=== PATIENT | male | born 1965 | race Caucasian/White ===

== ENCOUNTER 2018-01-07 08:27 | Outpatient (CLI) | payer OTHER ==
[2018-01-07 09:11] LABS: Estimated GFR-MDRD - POC Greater than 90
--- NOTE | 2018-01-07 13:29 | MRI ---
MRI ABDOMEN WITH AND WITHOUT IV CONTRAST: Date: 01/07/18 HISTORY: Cirrhosis. Encounter for colorectal cancer screening. Portal hypertension with esophageal varices. FINDINGS: Exam limited due to motion artifact. The liver has an irregular surface consistent with cirrhosis. There is heterogeneity in the liver due to degenerative nodules. No enhancing hepatic mass is seen. There is recanalization of the portal ve ins. No hepatic mass is seen. The spleen is enlarged measuring 19.3 cm. The liver, pancreas, and adre nal glands are normal. The gallbladder is distended. No definite gallstones are seen. No ascites is s een. There is no evidence of aneurysmal dilatation of the abdominal aorta. Paraesophageal varices are present. Multiple tiny low intensity lesions are seen in the spleen consistent with siderotic nodule s ([place] bodies). IMPRESSION: 1. Cirrhosis of the liver. 2. Splenomegaly. 3. Portal hypertension. 4. No evidence of hepatic mass. Follow-up exam is recommended in 12 months. POS: [facility]
== END 2018-01-07 08:28 | disposition home or self-care (01) ==
LOC: TBSIIMAG 08:27
PROVIDERS: ATTEND Internal Medicine Gastroenterology
DX: Z12.11 Encounter for screening for malignant neoplasm of colon (principal); K74.60 Unspecified cirrhosis of liver; K76.6 Portal hypertension; I85.10 Secondary esophageal varices without bleeding; R16.1 Splenomegaly, not elsewhere classified
CPT/HCPCS: 74183; 82565

== ENCOUNTER 2018-02-19 06:15 | Day surgery (SDC) | payer OTHER ==
[2018-02-18 12:02] VITALS: BMI 49.4
[2018-02-19] MEDS ORDERED: Ethanolamine Oleate 5% 2 ml Ampule ONE (08:53)
--- NOTE | 2018-02-19 10:53 | OP ---
DATE OF PROCEDURE: 02/19/2018 PROCEDURE: Esophagogastroduodenoscopy with banding of esophageal varices and screening colonoscopy. PREOPERATIVE DIAGNOSIS: Esophageal varices and colon cancer screening. OPERATIVE NOTE: Informed consent was obtained from the patient. He was sedated with total intraveno us anesthesia. The bite block was placed and the endoscope was advanced easily to the second portion of the duodenum and retroflexion was performed in the stomach. The esophagus had a very large grade 4 esophageal varix, which filled the lumen of the esophagus in the distal esophagus. This varix was banded x2. Banding flattened the varix out completely. The GE junction was, otherwise, normal. Th e stomach had erosive gastritis in the antrum. Retroflexed views were normal. There were no gastric varices present. The pylorus and first and second portions of the duodenum were normal. The patien t was turned around. Rectal exam was performed and was normal. The colonoscope was advanced to the cecum where the ileocecal valve and appendiceal orifice were clearly identified. The preparation valentin lity was good. The colonic mucosa was normal throughout. Retroflexed views in the rectum were selvin l. IMPRESSION: 1. Large grade 4 esophageal varix, banded x2. 2. Erosive antral gastritis. 3. Otherwise normal esophagogastroduodenoscopy. No gastric varices were present. 4. Normal screening colonoscopy. RECOMMENDATIONS: 1. Repeat EGD in 3 weeks for completion banding. 2. Repeat colonoscopy in 10 years. 3. Check H. pylori antibody.
== END 2018-02-19 10:15 | disposition home or self-care (01) ==
LOC: SDC 06:15
PROVIDERS: ATTEND Internal Medicine Gastroenterology
PROC: 0DJD8ZZ Inspection of Lower Intestinal Tract, Via Natural or Artificial Opening Endoscopic (ICD-10-PCS; principal; 2018-02-19)
PROC: 06L38CZ Occlusion of Esophageal Vein with Extraluminal Device, Via Natural or Artificial Opening Endoscopic (ICD-10-PCS; principal; 2018-02-19)
DX: K62.5 Hemorrhage of anus and rectum (principal); K74.60 Unspecified cirrhosis of liver; K76.6 Portal hypertension; I85.10 Secondary esophageal varices without bleeding; K29.60 Other gastritis without bleeding; I10 Essential (primary) hypertension; E78.00 Pure hypercholesterolemia, unspecified; Z79.84 Long term (current) use of oral hypoglycemic drugs; Z79.82 Long term (current) use of aspirin; Z79.899 Other long term (current) drug therapy
CPT/HCPCS: 36415; 36416; 86677; J1430

== ENCOUNTER 2018-02-28 23:55 | Inpatient (IN) | payer OTHER ==
[2018-03-01] MEDS ORDERED: Ondansetron HCl/PF 4 MG/2 ML Vial ONE ×2 (00:17→00:54)
[2018-03-01] MEDS ORDERED: Pantoprazole 40 MG VIAL ONE (00:58)
[2018-03-01 01:11] LABS: #Basophils 0.1 thou/uL (0.0-0.2); #Eosinphils 0.1 thou/uL (0.0-0.7); #Monocytes 0.5 thou/uL (0.11-0.59); #Neutrophils 4.9 thou/uL (1.40-6.50); %Basophils 0.7 % (0.0-1.0); %Eosinophils 0.8 % (0.0-10.0); %Lymphocytes 26.2 % (21.0-51.0); %Monocytes 6.6 % (0.0-10.0); %Neutrophils 65.7 % (42.0-75.0); Hemoglobin 11.8 g/dL (14.0-18.0); Mean Corpuscular HGB CONC 33.6 g/dL (32.0-36.0); Mean Corpuscular Hemoglobin 34.5 pg (27.0-31.0); Mean Platelet Volume 11.1 fL (7.4-10.4); Platelet Count 80 thou/uL (130-400); Red Blood Cell (RBC) Count 3.42 mill/uL (4.70-6.10); White Blood Cell (WBC) Count 7.4 thou/uL (4.8-10.8)
[2018-03-01 01:15] LABS: INR-International Normal Ratio 1.3; PTT 27.5 SEC (22.9-36.1); Prothrombin Time 16.7 SEC (12.0-14.7)
[2018-03-01 01:17] LABS: ALT (SGPT) 31 U/L (8-55); AST (SGOT) 36 U/L (5-34); Albumin 2.8 g/dL (3.5-5.0); Alkaline Phosphatase 111 U/L (40-150); Anion Gap 17 mmol/L (10-20); BUN (Urea Nitrogen) 29 mg/dL (8.4-25.7); Calc. Creatinine Clearance 0 mL/min (70-130); Calcium 8.8 mg/dL (7.8-10.44); Carbon Dioxide 18 mmol/L (22-29); Chloride 103 mmol/L (98-107); Estimated GFR-MDRD Greater than 90; Globulin 2.9 g/dL (2.4-3.5); Glucose 220 mg/dL (70-105); Lipase 40 U/L (8-78); Magnesium 1.5 mg/dL (1.6-2.6); Potassium 4.3 mmol/L (3.5-5.1); Protein, Total 5.7 g/dL (6.0-8.3); Sodium 134 mmol/L (136-145)
[2018-03-01] MEDS ORDERED: Magnesium Sulfate 2 GM/100 ML BAG ONE ×2 (01:32→01:44)
[2018-03-01] MEDS ORDERED: Octreotide Acetate 50 MCG/ML AMP ONE (01:44)
[2018-03-01] MEDS ORDERED: Octreotide Acetate 1,250 MCG in Sodium Chloride 0.9% 250 ML 250 ML IVPB SCH (01:45)
[2018-03-01] MEDS ORDERED: Octreotide Acetate 100 MCG/ML VIAL SLOW IVP SCH (01:45)
[2018-03-01] MEDS ORDERED: Promethazine HCl 25 MG/ML VIAL ONE ×2 (01:59→03:49)
[2018-03-01 04:55] LABS: Lactic Acid 3.5 mmol/L (0.5-2.2)
[2018-03-01] MEDS ORDERED: Ondansetron ODT 4 MG TAB SL PRN (06:02)
[2018-03-01] MEDS ORDERED: Ondansetron HCl/PF 4 MG/2 ML Vial IVP PRN ×2 (06:02→19:02)
[2018-03-01 06:03] VITALS: BMI 46.5
[2018-03-01] MEDS: Sodium Chloride 0.9% 1,000 ML IV SCH ×2 (08:22→17:15)
[2018-03-01] MEDS ORDERED: HumaLOG 300 UNITS/3 ML VIAL SC PRN (08:23)
--- NOTE | 2018-03-01 09:23 | RAD ---
SINGLE VIEW OF THE CHEST: COMPARISON: 02/09/11. HISTORY: Vomiting blood since yesterday. Hematemesis. FINDINGS: A single view of the chest shows an enlarged but stable cardiomediastinal silhouette. The patient is status post sternotomy. There is no evidence of consolidation, mass, or pleural effusion. IMPRESSION: Cardiomegaly without evidence of acute cardiopulmonary disease. POS: OFF
[2018-03-01 12:16] LABS: Hemoglobin 11.5 g/dL (14.0-18.0)
--- NOTE | 2018-03-01 13:50 | CON ---
DATE OF CONSULTATION: 03/01/2018 DATE OF ADMISSION: 03/01/2018 INDICATION FOR CONSULTATION: A 52-year-old gentleman with a history of coronary artery disease, bypa ss surgery who may need to undergo further GI surgical procedures. We were asked to see him due to h is history of bypass surgery in the past to ensure that he is stable in case he needs to undergo surg tom. HISTORY OF PRESENT ILLNESS: This 52-year-old gentleman who has been followed by Dr. Noe in the [facility], underwent bypass surgery in 2010 due to significant coronary artery disease. He had a SANCHEZ to le ft anterior descending artery and a saphenous vein graft to the second obtuse marginal branch and als o to a diagonal branch. He has been doing relatively well since that time. He saw Dr. Noe within the last week or two. His ejection fraction at the time of cardiac catheterization was 55%. He had an echocardiogram in the office in 2015, which showed he had left atrial dilatation with ejection fr action still remains stable at 55%-60%. He denies any cardiac complaints. He has had no chest pain or shortness of breath and has been doing very well. Recently, he started noticing some nausea and v omiting and had some hematemesis. He underwent esophageal varices bandings. This was performed on 0 02/19/2018. Yesterday, he started again noticing hematemesis and then was seen in the emergency room and was then readmitted to the hospital. He denies any cardiac complaints of shortness of breath or chest pain. PAST MEDICAL HISTORY: Significant for diabetes, hypertension, hypercholesterolemia, bypass surgery, and esophageal varices. He has fatty liver disease. He has history of nephrolithiasis by CT scan. He has had no symptoms as far as his nephrolithiasis is concerned. MEDICATIONS: His medications at home include metformin, Crestor, nadolol, lisinopril, Lasix, and asp irin. In the hospital, he has been given Sandostatin, Zofran and insulin on a sliding scale. FAMILY HISTORY: His maternal grandmother had some heart disease at an elderly age. There is no abdiaziz y family history of heart disease. SOCIAL HISTORY: He is . He has no children. He has no alcohol or tobacco abuse. 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 ALLERGIES: None. REVIEW OF SYSTEMS: A 12-point review of systems unremarkable, so was noted in the history of present illness with the nausea and vomiting. He complains also of some weakness. He has had melena, hemat emesis and occasional dizziness most likely associated with dehydration associated with the vomiting. Otherwise, 12-point review of systems unremarkable. PHYSICAL EXAMINATION: GENERAL: Reveals a well-developed, well-nourished gentleman who is in no acute distress at this time . VITAL SIGNS: Blood pressure is 131/45, heart rate is 95 and regular, respiratory rate 21, temperatur e 99.2, and O2 saturation 99%. HEENT: Shows the head to be normocephalic and atraumatic. Carotid pulses are present. There were n o bruits. There is no JVD. The thyroid is not enlarged. Oral mucosa is pink and moist. CHEST: Clear to auscultation without rales, rhonchi or wheezing. CARDIOVASCULAR: Exam reveals a regular rate and rhythm, normal S1, S2. There is no S3, S4. There w ere no significant murmurs, heaves, thrills, bruits or rubs. He has well-healed midline surgical inc ision after median sternotomy. ABDOMEN: He has abdominal obesity. EXTREMITIES: Show no clubbing, cyanosis or edema. Pedal pulses are present. NEUROLOGIC: The patient appears to be fully intact. He appears to have normal strength and tone. SKIN: Warm and dry. LABORATORY DATA: EKG shows a normal sinus rhythm with nonspecific T-wave changes in 1 and aVL which most likely is nonspecific. His laboratory data is unremarkable. His hemoglobin is 11.8, platelet c ount was only 80,000. Potassium 4.3, creatinine 0.8. His ammonia level was 126, albumin was 2.8. IMPRESSION: 1. A 52-year-old gentleman with esophageal varices who may need to undergo surgical correction or fu rther evaluation from a GI standpoint, but from a coronary artery standpoint, he appears to be stable . 2. History of coronary artery disease, status post bypass surgery, appears to be stable. He does lerner ve EKG changes; however, but did not appear to be significant. Now need to review an EKG if possible . He has had no previous problems since his bypass surgery in 2010. 3. History of diabetes. This will be dealt with by the primary care service. 4. Hypertension. He will continue his medications. Once the blood pressure starts elevated again, but at this time he appears to be somewhat dehydrated. 5. History of hypercholesterolemia with a fatty liver. When he discussed this with the GI doctor wh ether or not to continue his lipid medications or whether he may need to be switched to subcutaneous medication, the SK-39 inhibitors to see whether or not this may assist in his lowering the cholestero l level if he is unable to take statin medications. I did not have a recent cholesterol level on adriano s pierre and we can certainly evaluate this in the future. The last cholesterol level that I saw on the computer was an LDL level of 157, certainly he will need to have better control of his cholest melania.
--- NOTE | 2018-03-01 14:31 | HP ---
CHIEF COMPLAINT: Weakness, mental status change and vomiting blood. HISTORY OF PRESENT ILLNESS: This is a 52-year-old gentleman with a history of known coronary artery disease, type 2 diabetes and cirrhosis from steatohepatitis, who presented to the Emergency Departmen t early this morning with complaints of confusion and vomiting blood. Of note, he recently had a cristel gical procedure here with Dr. Branch on 02/19/2018 for EGD, colonoscopy and banding of large esophagea l varices. He was discharged home in good condition at that time. He spent this past weekend in [place] when he had episode of nausea, vomiting and confusion. He presented to the local Emerg ency Department there in [place] and was found to have elevated ammonia level. Medicines were adju sted and he was discharged home after one night in the hospital. Throughout this week, he seemed to remain stable until last night when family brought him to the Emergency Department for further evalua tion. In the Emergency Department, he was admitted, he was suspected continued GI bleed due to the r ecent varices and banding procedure and he was monitored overnight and remained stable, but his nancy ia level has continued to remain high. He is now being admitted for further evaluation and treatment . PAST MEDICAL HISTORY: Type 2 diabetes; hypertension; hyperlipidemia; morbid obesity; history of vick lcoholic steatohepatitis, now with cirrhosis; history of coronary artery disease, status post coronar y artery bypass graft in 2010. PAST SURGICAL HISTORY: Coronary artery bypass graft in 2010; EGD in 2010, 2016 and 2018; colonoscopy in 2018. MEDICATIONS: Include NovoLog b.i.d., lisinopril 20 mg daily, Crestor 40 mg daily, nadolol 20 mg cassy y, Janumet mg twice a day, spironolactone 25 mg daily and Lasix 20 mg daily. ALLERGIES: None known. FAMILY HISTORY: Father with diabetes. Mother with cancer and hypertension. SOCIAL HISTORY: He is . No smoking, no alcohol. Works in construction. REVIEW OF SYSTEMS: As per the history of present illness. General: Denies any recent fevers, chill s or recent illness. HEENT: No headache, visual or hearing changes. Cardiac: As per the history o f present illness. No recent chest pain, shortness of breath or palpitations. Pulmonary: No cough or hemoptysis. Gastrointestinal: As per the history of present illness with vomiting blood. No kno wn abdominal pain. Gastrointestinal history as per noted above. Genitourinary: No history of hemat uria or dysuria. Neurologic: Positive for confusion, positive for weakness. No seizures or syncope . PHYSICAL EXAMINATION: VITAL SIGNS: Temperature 99.2, pulse of 95, respirations 18-22, blood pressure 131/45 and pulse ox i s 99% on room air. GENERAL: He is awake and alert, in no acute distress, but appears confused. Continues to ask questi ons, not relevant. Mucosa is moist. NECK: Supple. HEART: Regular rate and rhythm. LUNGS: Clear. ABDOMEN: Obese, soft, nontender and nondistended. No hepatosplenomegaly. EXTREMITIES: With edema, 2+ peripheral pulses bilaterally. LABORATORY AND X-RAY FINDINGS: White blood cell count 7.4 thousand, hemoglobin and hematocrit 11.8 a nd 35.1, platelets of 80. PT and PTT of 16.7 and 27.5. Sodium 134, potassium 4.3, chloride 103, CO2 of 18, BUN and creatinine are 29 and 0.8. Serum glucose of 220. Lactic acid of 3.5, magnesium 1.5. Total bilirubin 2.0, AST and ALT of 36 and 31, alkaline phosphatase of 111. Ammonia level was elev ated at 126. Albumin low at 2.8, lipase of 40. Chest x-ray in the Emergency Department revealed car diomegaly with no acute cardiopulmonary disease. ASSESSMENT AND PLAN: This is a 52-year-old gentleman with multiple medical problems as described abo ve, now with nausea and vomiting with hematemesis as well as mental status change. 1. Upper gastrointestinal bleed, likely due to esophageal varices, GI to evaluate another banding ve rsus other treatment for the esophageal varices. 2. Hepatic encephalopathy. We will start lactulose and then further plan per GI. 3. Type 2 diabetes. We will continue insulin treatment. 4. Cardiomegaly with history of coronary artery disease. Cardiology to be notified of his admission .
[2018-03-01] MEDS ORDERED: Dextrose 5% in Water 1,000 ML IV PRN (14:52)
[2018-03-01] MEDS ORDERED: Dextrose 50% Abboject 50 ML SYRINGE IVP PRN (14:52)
[2018-03-01] MEDS: HumaLOG 300 UNITS/3 ML VIAL SC PRN ×2 (14:54→16:53)
[2018-03-01] MEDS ORDERED: Succinylcholine Chloride 20 MG/ML 10 ml SYRINGE FS ONE (16:36)
[2018-03-01] MEDS ORDERED: PHENYLEPHRINE-NS 100 MCG/ML 10 ML SYRINGE ONE (16:36)
[2018-03-01] MEDS ORDERED: Lidocaine 1% PF 5 ML VIAL ONE (16:36)
[2018-03-01] MEDS ORDERED: PROPOFOL 200 MG/20 ML VIAL ONE (16:36)
[2018-03-01] MEDS ORDERED: Fentanyl 100 MCG/2 ML VIAL ONE (17:30)
[2018-03-01] MEDS ORDERED: cefTRIAXone\\ROCEPHIN 2 GM in Sodium Chloride 0.9% 100 ML IVPB SCH (18:30)
[2018-03-01] MEDS ORDERED: Promethazine HCl 25 MG/ML VIAL SLOW IVP PRN (19:02)
[2018-03-01] MEDS ORDERED: Promethazine HCl 25 MG/ML VIAL IM PRN (19:02)
--- NOTE | 2018-03-01 20:34 | OP ---
DATE OF PROCEDURE: 03/01/2018 PROCEDURE PERFORMED: Esophagogastroduodenoscopy with banding of bleeding esophageal varices. PROCEDURE IN DETAIL: Informed consent was obtained from the patient. He was sedated with general an esthesia. The bite block was placed and the endoscope was advanced easily to the second portion of t he duodenum and retroflexion was performed in the stomach. The stomach had a large amount of fresh r ed clot and blood, which was suctioned out. The stomach was otherwise unremarkable. The pylorus and first and second portions of the duodenum were unremarkable other than red blood staining. The esop hagus had 2 ulcers of the prior banding sites. These had necrotic tissue adherent, consistent with t he prior banding. The distal ulcer bled acutely and a band was placed directly over this ulcer with good hemostasis confirmed. The second ulcer had a deep ulceration; however, this site would not acce pt the second band. There was no bleeding from this site. This varix had already been banded distal to that site. IMPRESSION: 1. Necrotic tissue adherent over the previous ulcers from banding. There was active bleeding from t he distal banding ulcer. A new band was placed over this site. The necrotic tissue was dislodged an d the underlying ulcerations were clearly visualized. There was good hemostasis achieved with the di stal actively bleeding ulcer with the new band placed. The second ulcer, proximal ulcer would not ho ld the band, but there was no active bleeding from the site. 2. Red blood and clot suctioned from the stomach. 3. Otherwise unremarkable esophagogastroduodenoscopy. RECOMMENDATIONS: 1. Octreotide x72 hours. 2. Ceftriaxone every 24 hours for SBP prophylaxis. 3. Proton pump inhibitor. 4. Lactulose enema tonight and then orally. 5. Repeat EGD with banding in 3 weeks. 6. Advance diet tomorrow if his mental status is improved.
--- NOTE | 2018-03-01 23:18 | PDOC.EVN ---
Event Note - Event Note Event Note: Called by primary as patient lost all IV access and requires IV access. Attempted LIJ access x 3 but unable to complete 2/2 patient's AMS and lack of cooperation/movement. Would recommend midline/sono guided IV if able or IO until able to gain definitive access. On lung ultrasound after procedure + lung sliding and A lines.
[2018-03-02] MEDS ORDERED: Lactulose 10 GM/15 ML Oral Solution PR PRN (01:01)
[2018-03-02 02:37] LABS: #Lymphocytes 1.4 thou/uL (1.20-3.40); #Neutrophils 10.9 thou/uL (1.40-6.50); %Basophils 0.2 % (0.0-1.0); %Eosinophils 0.2 % (0.0-10.0); %Lymphocytes 10.8 % (21.0-51.0); %Monocytes 7.4 % (0.0-10.0); %Neutrophils 81.4 % (42.0-75.0); Hemoglobin 10.5 g/dL (14.0-18.0); Mean Corpuscular HGB CONC 34.4 g/dL (32.0-36.0); Mean Corpuscular Hemoglobin 35.4 pg (27.0-31.0); Platelet Count 78 thou/uL (130-400); RBC Distribution Width 14.7 % (11.5-14.5); Red Blood Cell (RBC) Count 2.96 mill/uL (4.70-6.10); White Blood Cell (WBC) Count 13.4 thou/uL (4.8-10.8)
[2018-03-02 02:44] LABS: INR-International Normal Ratio 1.5; PTT 26.7 SEC (22.9-36.1); Prothrombin Time 18.8 SEC (12.0-14.7)
[2018-03-02] MEDS: Pantoprazole 40 MG VIAL IVP SCH ×3 (02:52→20:44)
[2018-03-02 03:15] LABS: ALT (SGPT) 35 U/L (8-55); AST (SGOT) 45 U/L (5-34); Albumin 2.8 g/dL (3.5-5.0); Alkaline Phosphatase 100 U/L (40-150); Anion Gap 19 mmol/L (10-20); BUN (Urea Nitrogen) 36 mg/dL (8.4-25.7); Bilirubin, Total 2.3 mg/dL (0.2-1.2); Calc. Creatinine Clearance 173 mL/min (70-130); Calcium 8.9 mg/dL (7.8-10.44); Carbon Dioxide 18 mmol/L (22-29); Chloride 108 mmol/L (98-107); Cholesterol 185 mg/dl (< 200 Desired); Estimated GFR-MDRD 76; Globulin 2.9 g/dL (2.4-3.5); Glucose 395 mg/dL (70-105); HDL Cholesterol 23 mg/dL (>60 Neg Risk); LDL Cholesterol, Calculated 137 mg/dL; Potassium 4.6 mmol/L (3.5-5.1); Protein, Total 5.7 g/dL (6.0-8.3); Sodium 140 mmol/L (136-145); Triglycerides 123 mg/dL (Less than 150)
[2018-03-02 05:18] LABS: #Lymphocytes 1.5 thou/uL (1.20-3.40); #Neutrophils 9.9 thou/uL (1.40-6.50); %Basophils 0.1 % (0.0-1.0); %Eosinophils 0.1 % (0.0-10.0); %Lymphocytes 11.8 % (21.0-51.0); %Neutrophils 79.9 % (42.0-75.0); Hemoglobin 10.4 g/dL (14.0-18.0); Mean Corpuscular HGB CONC 33.6 g/dL (32.0-36.0); Mean Corpuscular Hemoglobin 34.7 pg (27.0-31.0); Mean Platelet Volume 10.3 fL (7.4-10.4); Platelet Count 77 thou/uL (130-400); RBC Distribution Width 14.7 % (11.5-14.5); White Blood Cell (WBC) Count 12.4 thou/uL (4.8-10.8)
[2018-03-02] MEDS: HumaLOG 300 UNITS/3 ML VIAL SC PRN ×4 (06:18→20:47)
[2018-03-02] MEDS ORDERED: Sodium Chloride 0.9% 500 ML IVPB SCH (08:15)
[2018-03-02] MEDS: Sodium Chloride 0.9% 1,000 ML IV SCH ×2 (08:54→20:44)
--- NOTE | 2018-03-02 09:03 | PDOC.EVN ---
Event Note - Event Note Event Note: INDICATION: vascular access PROCEDURE INTELLIGENCE OPERATIONS SPECIALIST: Thuan Merino ATTENDING PHYSICIAN: Thuan Jones In Attendance Y CONSENT: Consent was obtained from Renay prior to the procedure. Indications, risks , and benefits were explained at length. PROCEDURE SUMMARY: A time out was performed. My hands were washed immediately prior to the procedure. I wore a surgical cap, mask with protective eyewear, full gown and sterile gloves throughout the procedure. LEFT chest and neck region was prepped using chlorhexidine scrub and draped in sterile fashion using a drape. The Internal Jugular vein was identified using the ultrasound. Anesthesia was achieved over the vein using 1% lidocaine. Using real-time out of plane guidance , the introducer needle was inserted into the Internal Jugular vein under direct ultrasound visualization. Venous blood was withdrawn but the patient was moving throughout the procedure so the guidewire was not able to be introduce. Attempt to canulate juguar was made x3 using US guidance but guidewire could not be passed. US was used after the procedure to confirm pleural sliding making pneumothorax unlikely. Estimated blood loss is 10ml.
--- NOTE | 2018-03-02 10:24 | RAD ---
CHEST 1 VIEW: Date: 03/02/18 HISTORY: Central line placement attempt. COMPARISON: Earlier exam from same date. FINDINGS: Cardiac silhouette is magnified, enlarged, and accentuated by the shallow inspiration. Pulmonary vasc ulature is slightly engorged. Mediastinum is midline with postoperative changes evident. No central line catheter is apparent on this exam. No evidence of pneumothorax. IMPRESSION: 1. No central line catheter visible. 2. Pulmonary vascular congestion. POS: [facility]
[2018-03-02] MEDS: Octreotide Acetate 1,250 MCG in Sodium Chloride 0.9% 250 ML 250 ML IVPB SCH (10:56)
[2018-03-02] MEDS ORDERED: Insulin Detemir 100 UNITS/ML 20 UNITS in Pre-Filled Syringe 1 EACH SC SCH (11:30)
--- NOTE | 2018-03-02 13:29 | PRG ---
DATE OF SERVICE: 03/02/2018 SUBJECTIVE: Mr. Yanes had persistent encephalopathy. Through the night last night, he was very con fused. He pulled his IV out and then required multiple attempts at central line placement for IV acc ess. He kept moving and made placement of the central line unsuccessful; however, ultimately he was able to have a small IV started in his wrist. OBJECTIVE: VITAL SIGNS: Temperature 99.6, pulse 104, blood pressure 124/49. GENERAL: He is in no acute distress. He is oriented to his name, but slow to answer questions. HEENT: He has asterixis. LUNGS: Clear to auscultation bilaterally. HEART: Regular rate and rhythm. ABDOMEN: Soft, nontender, nondistended. Bowel sounds are present. EXTREMITIES: No lower extremity edema. LABORATORY DATA: White blood cell count 12.4, hemoglobin 10.4, platelets 77. INR 1.5. Creatinine 1 .03 up from 0.8, bilirubin 2.3, AST 45, ALT 35, alkaline phosphatase 100. Ammonia is down to 57 from 126 yesterday. IMPRESSION: 1. Bleeding from esophageal varices from the previous band ulcers. He had active bleeding from the distal band ulcer and this site was re-banded. Continued completion banding would be planned for 3-4 weeks. 2. Cirrhosis of the liver, likely secondary to fatty liver disease. 3. Hepatic encephalopathy. He has received 2 lactulose enemas. He is finally awake enough to swall ow lactulose orally this morning and he is more alert this morning. He was immediately given 60 mL o f lactulose. 4. Mild increase in the creatinine. We will have to follow this closely. RECOMMENDATIONS: 1. Octreotide drip to complete a 72-hour course. 2. Ceftriaxone for SBP prophylaxis. 3. Lactulose orally. Once his mental status clears, titrate this back to 3-4 soft bowel movements p er day. 4. We will give a fluid bolus given the bump in his creatinine and lack of IV access last night and minimal intake yesterday. 5. Advance his diet today to full liquids and then advance to a low salt diet tomorrow. 6. Would complete a 5-day course of antibiotics for the SBP prophylaxis.
--- NOTE | 2018-03-02 13:57 | PRG ---
DATE OF SERVICE: 03/02/2018 SUBJECTIVE: Status post upper GI endoscopy, he is feeling better. OBJECTIVE: VITAL SIGNS: Sats are 97% on room air, temperature is 99, blood pressure 129/49. CHEST: Decreased breath sounds. No wheezing. CARDIAC: Normal S1 and S2. No gallops. ABDOMEN: Soft. No masses. LABORATORY DATA: White count 12,000, hemoglobin and hematocrit is 10 and 31, platelet count is 77. Electrolytes are normal. IMPRESSION: 1. Status post variceal bleed from hepatitis, fatty. 2. Status post coronary artery bypass graft. 3. Morbid obesity. 4. Elevated diaphragm. PLAN: At this stage, continue octreotide, beta blockers and Protonix. We will follow while in the [facility] ICU.
[2018-03-02] MEDS: cefTRIAXone\\ROCEPHIN 1 GM in Syringe 10 ML IVPB SCH (16:58)
--- NOTE | 2018-03-02 19:50 | PRG ---
DATE OF SERVICE: 03/02/2018 SUBJECTIVE: The patient underwent EGD last night with a repeat banding of last banding site somewhat ulcerated and was bleeding. Good hemostasis was achieved according to GI's note, however, no other esophageal varices was quite distended, we will likely need to be attempted to be banded in approxima tely 3 weeks. The patient is in the outpatient follow up with GI set up. The patient's hemoglobin a ppear to have remained stable. Nursing staff contacted me overnight regarding the patient's mentatio n despite his lactulose much improving following lactulose enema and he is now tolerating oral lactul ose. He was quite combated following the procedure and anesthesia washout. He is much more alert an d following commands this a.m. with nursing staff and had pulled out his IV site. Central line was a ttempted to adequate supply the drips overnight; however, attempts failed, peripheral line was succes sfully achieved on a large right upper extremity this a.m. and medications were resumed. The patient denies any acute complaints. I discussed the patient's MONZON and esophageal varices with spouse at [facility] this a.m. Temperature this a.m. of 99.6, pulse of 104, respiratory rate of 19, oxygen saturat ion 97% on room air, blood pressure 129/49. T-max in the last 24 hours of 100.4 at 2000 hours last n ight. LABORATORY DATA: Reviewed. White blood cell count of 12.4, hemoglobin of 10.4, platelet count of 77 . INR of 1.5. Blood glucoses range from 345-439, albumin of 2.8, potassium of 4.6. Sodium of 140, creatinine of 1.0, AST of 45, ALT of 32, total bilirubin of 2.3. Chest x-ray with a cardiopulmonary congestion on portable last night following attempts at central line placement, no pneumothorax prese nt. PHYSICAL EXAMINATION: GENERAL: The patient is somewhat somnolent, but easily aroused following commands and slow with answ ers of questions. HEENT: Head is normocephalic, atraumatic. Extraocular movements are intact. Oral mucosa is moist. HEART: Regular rate and rhythm at time of exam. No murmurs. LUNGS: Clear but diminished secondary to body habitus. ABDOMEN: Protuberant, but soft, positive bowel sounds throughout. EXTREMITIES: Lower extremities without cyanosis or edema present. NEUROLOGIC: The patient is alert and oriented x2. Moving all extremities equally. ASSESSMENT AND PLAN: Hepatic encephalopathy, MONZON, upper GI bleed, esophageal varices, diabetes type 2, cardiomegaly, transient altered awareness. The patient much improved following lactulose enema a nd washout period of anesthesia agents. Upper gastrointestinal bleed management per GI, plan to viera sition from octreotide drip and IV PPI per GI's recommendations. The patient is now started on some oral agents, transitioned from lactulose enema to p.o. lactulose. The patient with sliding scale ins ulin with inadequate control diabetes, initiated Levemir this afternoon. GI started IV fluids. We w ill continue to monitor the patient's blood glucose and adjust in the next 24 hours. The patient rem ains on SBP prophylaxis with Rocephin. Differential diagnosis for temperature includes some atelecta sis and post procedure acute-phase reaction. We will monitor for any signs of infection. If repeat fevers, we will order cultures and repeat chest x-ray in a.m.
--- NOTE | 2018-03-02 19:54 | EKG ---
Test Reason : Blood Pressure : / mmHG Vent. Rate : 094 BPM Atrial Rate : 094 BPM P-R Int : 140 ms QRS Dur : 086 ms QT Int : 396 ms P-R-T Axes : 020 004 112 degrees QTc Int : 495 ms Normal sinus rhythm Possible Left atrial enlargement Low voltage QRS Cannot rule out Anterior infarct , age undetermined T wave abnormality, consider lateral ischemia Abnormal ECG Confirmed by DELIO LORA D.O. ([id number]), assistant production editor DARLENE CHOI ([id number]) on 03/02/2018 7:54:24 PM Referred By: Confirmed By:DELIO LORA D.O.
[2018-03-03] MEDS: Sodium Chloride 0.9% 1,000 ML IV SCH ×2 (04:06→11:00)
[2018-03-03 05:35] LABS: ALT (SGPT) 35 U/L (8-55); AST (SGOT) 51 U/L (5-34); Albumin 2.6 g/dL (3.5-5.0); Alkaline Phosphatase 90 U/L (40-150); Anion Gap 10 mmol/L (10-20); BUN (Urea Nitrogen) 29 mg/dL (8.4-25.7); Bilirubin, Total 1.8 mg/dL (0.2-1.2); Calc. Creatinine Clearance 221 mL/min (70-130); Carbon Dioxide 23 mmol/L (22-29); Chloride 107 mmol/L (98-107); Estimated GFR-MDRD Greater than 90; Globulin 2.4 g/dL (2.4-3.5); Glucose 263 mg/dL (70-105); Sodium 136 mmol/L (136-145)
[2018-03-03 05:47] LABS: Band 1 % (5-11); Eosinophils 1 % (0-10); Hemoglobin 8.9 g/dL (14.0-18.0); Lymphocytes 14 % (21-51); MDiff Complete? YES; Macrocytosis SLIGHT = 6-15 cells (100X) (0-5/hpf); Mean Corpuscular Hemoglobin 34.8 pg (27.0-31.0); Mean Platelet Volume 11.3 fL (7.4-10.4); Metamyelocyte 1 % (0-0); Monocytes 6 % (0-10); Neutrophil 77 % (42-75); Nucleated RBC 2 % (0); PLT Morphology Comment Appears Decreased; Platelet Count 38 thou/uL (130-400); RBC Distribution Width 14.7 % (11.5-14.5); Red Blood Cell (RBC) Count 2.54 mill/uL (4.70-6.10); White Blood Cell (WBC) Count 6.2 thou/uL (4.8-10.8)
[2018-03-03] MEDS: HumaLOG 300 UNITS/3 ML VIAL SC PRN ×3 (05:55→18:04)
[2018-03-03] MEDS: Pantoprazole 40 MG VIAL IVP SCH ×2 (09:15→21:23)
[2018-03-03] MEDS: Insulin Detemir 100 UNITS/ML 15 UNITS in Pre-Filled Syringe 1 EACH SC SCH (09:16)
--- NOTE | 2018-03-03 12:37 | PRG ---
DATE OF SERVICE: 03/03/2018 SUBJECTIVE: Mr. Zaid Yanes is awake, more responsive. Less encephalopathic. OBJECTIVE: VITAL SIGNS: Sats are 90% on 3 liters, temperature 99, blood pressure 134/52. CHEST: Decreased breath sounds, no wheezing. CARDIAC: Normal S1, S2. No gallops. ABDOMEN: Soft, no masses. LABORATORY DATA: His electrolytes are normal. His white count is 6000, hemoglobin and hematocrit is 8 and 26, platelet count is 38. IMPRESSION: 1. Status post gastrointestinal bleed secondary to varices, secondary to fatty cirrhosis. 2. Fever. PLAN: Continue nutrition, PT, and supportive care. We will follow.
--- NOTE | 2018-03-03 12:41 | RAD ---
2 VIEW CHEST: Date: 03/03/18 COMPARISON: 03/01/18. INDICATION: Pulmonary congestion. FINDINGS: Extrinsic artifact limits detail. There is enlargement of the cardiac silhouette and prominence of pu lmonary vasculature. Prior sternotomy again seen. No obvious effusion or discrete pneumothorax. IMPRESSION: Evidence of CHF. Correlate clinically. POS: [facility]
[2018-03-03 14:29] LABS: Hemoglobin 8.6 g/dL (14.0-18.0); Mean Corpuscular HGB CONC 33.6 g/dL (32.0-36.0); Mean Platelet Volume 9.9 fL (7.4-10.4); Platelet Count 42 thou/uL (130-400); RBC Distribution Width 14.7 % (11.5-14.5); Red Blood Cell (RBC) Count 2.47 mill/uL (4.70-6.10); White Blood Cell (WBC) Count 6.3 thou/uL (4.8-10.8)
[2018-03-03] MEDS: Octreotide Acetate 1,250 MCG in Sodium Chloride 0.9% 250 ML 250 ML IVPB SCH (14:56)
[2018-03-03] MEDS: cefTRIAXone\\ROCEPHIN 1 GM in Syringe 10 ML IVPB SCH (18:08)
--- NOTE | 2018-03-03 18:09 | PRG ---
DATE OF SERVICE: 03/03/2018 SUBJECTIVE: Mr. Yanes is much more alert today. He has no abdominal pain and he is tolerated diet so far. He had around 3 bowel movements last night and couple today. OBJECTIVE: VITAL SIGNS: Temperature 97.7, pulse 95, oxygen saturation around 90%, blood pressure 146/59. GENERAL: He is in no acute distress. He is alert and oriented x3. HEENT: Eyes have no scleral icterus. ABDOMEN: Soft, nontender, nondistended. Bowel sounds are present. EXTREMITIES: No lower extremity edema. NEUROLOGIC: He has very slight asterixis on physical exam. LABORATORY DATA: His hemoglobin is 8.6 today. INR 1.5, creatinine 0.81, bilirubin 1.8. IMPRESSION: 1. Gastrointestinal bleed from esophageal varices, status post rebanding to the previous site of ble eding banding ulcer. I am not surprise to see his hemoglobin drift down today. Most of the bleeding occurred prior to the banding. I think this is just re-equilibration. He has not been passing over t blood with the stools today. 2. Cirrhosis of liver secondary, most likely, to fatty liver disease. 3. Hepatic encephalopathy, triggered by the GI bleed. His mental status continues to improve with l actulose. 4. Slightly low oxygen saturations with reported pulmonary congestion by chest x-ray. His creatinin e is improved and his mental status is normal. No respiratory distress. I will discontinue his IV f luids, given that he is tolerating oral diet now. RECOMMENDATIONS: 1. Low salt diet. 2. Continue the octreotide through tomorrow and then it can be discontinued. 3. Continue pantoprazole b.i.d. 4. Continue ceftriaxone. He will ultimately require a 5-day course of antibiotics; however, the day after tomorrow he can likely change management facilitator to an oral fluoroquinolone for a couple of days. Hopefully , we can aim for discharge day after tomorrow. 5. He will require follow up EGD in 3-4 weeks for completion banding.
[2018-03-03] MEDS ORDERED: Insulin Detemir 100 UNITS/ML 15 UNITS in Pre-Filled Syringe 1 EACH SC SCH (21:00)
--- NOTE | 2018-03-03 21:15 | PRG ---
DATE OF SERVICE: 03/03/2018 HISTORY OF PRESENT ILLNESS: The patient is lucid today. No further altered mentation. No further r estraints used. No fevers in the last 24 hours. The patient has maintained IV access in his right u pper extremity. Denies any hematemesis or hematochezia. Has no new acute complaints. PHYSICAL EXAMINATION: VITAL SIGNS: Temperature 97.9, pulse of 95, respiratory rate of 20, oxygen saturation of 97% on room air, blood pressure of 138/64. GENERAL: The patient is alert, oriented, in no acute distress. HEENT: Head is normocephalic, atraumatic. Extraocular movements are intact. Sclerae are clear. Mu cosa is moist. NECK: Supple. HEART: Regular rate and rhythm. No murmurs auscultated. LUNGS: Clear to auscultation bilaterally. No rubs or wheezes. Diminished breath sounds secondary t o body habitus. ABDOMEN: Soft, nontender. Positive bowel sounds throughout. EXTREMITIES: Lower extremities without cyanosis or edema. LABORATORY DATA: Hemoglobin of 8.6, white blood cell count of 6.3, platelet count of 42. INR yester day was 1.5. Blood glucose ranged last 12 hours, 263-355. ASSESSMENT AND PLAN: Hepatic encephalopathy, nonalcoholic steatohepatitis, upper gastrointestinal bl eed, esophageal varices, diabetes type 2, cardiomegaly. The patient's encephalopathy has currently r esolved following lactulose and distance from procedure or anesthesia. The patient has been adequate ly rehydrated with IV fluids. Per GI's recommendations, we will repeat banding in approximately 3 we eks. The patient is slated to likely go to the floor tomorrow and then be discharged the day followi ng as long as no further decompensation occurs. Increase the patient's Levemir from 20 units yesterd ay to 15 units b.i.d. today with sliding scale insulin continued. We will readjust at 24 hours. We will check out with Dr. Reese Acosta for tomorrow's measurements.
[2018-03-04 04:24] LABS: ALT (SGPT) 44 U/L (8-55); AST (SGOT) 65 U/L (5-34); Albumin 2.4 g/dL (3.5-5.0); Alkaline Phosphatase 82 U/L (40-150); Anion Gap 8 mmol/L (10-20); BUN (Urea Nitrogen) 19 mg/dL (8.4-25.7); Bilirubin, Total 1.7 mg/dL (0.2-1.2); Calc. Creatinine Clearance 219 mL/min (70-130); Calcium 7.8 mg/dL (7.8-10.44); Carbon Dioxide 23 mmol/L (22-29); Chloride 106 mmol/L (98-107); Estimated GFR-MDRD Greater than 90; Globulin 2.3 g/dL (2.4-3.5); Glucose 248 mg/dL (70-105); Potassium 4.4 mmol/L (3.5-5.1); Protein, Total 4.7 g/dL (6.0-8.3); Sodium 133 mmol/L (136-145)
[2018-03-04 04:27] LABS: Band 5 % (5-11); Hemoglobin 8.2 g/dL (14.0-18.0); Lymphocytes 15 % (21-51); MDiff Complete? YES; Mean Corpuscular HGB CONC 34.3 g/dL (32.0-36.0); Mean Corpuscular Hemoglobin 36.2 pg (27.0-31.0); Mean Platelet Volume 10.7 fL (7.4-10.4); Monocytes 2 % (0-10); Neutrophil 78 % (42-75); Nucleated RBC 5 % (0); PLT Morphology Comment Appears Decreased; Platelet Count 42 thou/uL (130-400); RBC Distribution Width 14.8 % (11.5-14.5); Red Blood Cell (RBC) Count 2.25 mill/uL (4.70-6.10)
[2018-03-04] MEDS: HumaLOG 300 UNITS/3 ML VIAL SC PRN (05:28)
[2018-03-04] MEDS: Pantoprazole 40 MG VIAL IVP SCH (08:04)
[2018-03-04] MEDS: Insulin Detemir 100 UNITS/ML 15 UNITS in Pre-Filled Syringe 1 EACH SC SCH (08:05)
[2018-03-04] MEDS ORDERED: Octreotide Acetate 1,250 MCG in Sodium Chloride 0.9% 250 ML 250 ML IVPB SCH (09:13)
--- NOTE | 2018-03-04 09:31 | PRG ---
DATE OF SERVICE: 03/04/2018 SUBJECTIVE: Mr. Yanes has no acute complaints today. He did have diarrhea last night with incontin ence. He had two episodes of diarrhea last night. He had 3 bowel movements yesterday. He has had n o overt bleeding. PHYSICAL EXAMINATION: VITAL SIGNS: Temperature 98.5, pulse 80, blood pressure 107/47. GENERAL: He is in no acute distress, alert and oriented x3. He has no asterixis. LUNGS: Clear to auscultation bilaterally. HEART: Regular rate and rhythm. ABDOMEN: Soft and nontender. Bowel sounds are present. EXTREMITIES: No lower extremity edema. LABORATORY DATA: White blood cell count 4.0, hemoglobin 8.2, platelets 42,000. Creatinine 0.82, alex irubin 1.7, AST 65, ALT 44, alkaline phosphatase 82, albumin 2.4. IMPRESSION: 1. Bleeding from esophageal varices. The bleeding has currently resolved. Status post banding. He will require completion banding in 3-4 weeks. 2. Hepatic encephalopathy, now improved. He is having more stool output and desired at this point. We will start backing off the lactulose to twice daily in the morning and at noon. 3. Cirrhosis of the liver, most likely secondary to fatty liver disease. RECOMMENDATIONS: 1. Low salt diet. 2. We should be able to stop the octreotide today, this evening. 3. Switch to oral pantoprazole. 4. Continue ceftriaxone for now. He can switch this to oral antibiotic tomorrow.
--- NOTE | 2018-03-04 09:42 | PRG ---
DATE OF SERVICE: 03/04/2018 This morning he is much improved, less encephalopathic. PHYSICAL EXAMINATION: VITAL SIGNS: Temperature is 98, pulse 80, respirations 20, sats are 94% on room air, blood pressure 107/47. CHEST: No wheezing, no crackles. CARDIAC: Normal S1-S2. ABDOMEN: Soft, no masses. LABORATORY: Platelet count 43,000, H&H 8 and 23. White count 4000. Electrolytes are normal. IMPRESSION: 1. Metabolic encephalopathy secondary to hepatitis. 2. Gastrointestinal bleed, resolved. 3. Possibly sleep apnea. PLAN: The patient is stable enough to be transferred out of the [facility]. I suggest outpatient sleep [facility], it was okay with his . I will follow.
--- NOTE | 2018-03-04 10:36 | CON ---
DATE OF CONSULTATION: 03/01/2018 HISTORY OF PRESENT ILLNESS: This is a 52-year-old morbidly obese gentleman, 151 kg, came with a bloo d pressure of 107/74, pulse 105, sats 90% on room air with retching, coughing some blood, followed by hematemesis. Recently discharged with a GI bleed. The states he has got a fatty liver. He lerner s had endoscopy done recently. He has been in this institution before, but is being a period of time 7 years ago. He has never smoked. No history of alcohol abuse. PAST MEDICAL HISTORY: Morbid obesity, diabetes, hypertension, high cholesterol, fatty liver. PAST SURGICAL HISTORY: Bypass 7 years ago. HOME MEDICATIONS: His chronic medication from home includes Janumet, Crestor 40, nadolol 20, lisinop ril 20, Lasix 40, aspirin. ALLERGIES: None. 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 As noted, no alcohol, tobacco. REVIEW OF SYSTEMS: Ten-point negative. PHYSICAL EXAMINATION: VITAL SIGNS: Blood pressure 162/62, sats 96% on room air, temperature 98. CHEST: No crackles, rales, or wheezing. CARDIAC: Normal S1-S2. No gallops. ABDOMEN: Soft. No mass. LABORATORY AND X-RAY FINDINGS: X-ray shows no acute infiltrates. His lab, white count is 7000, H an d H 11 and 35, platelet count is 80, creatinine is normal. Lactic acid is 3.5. Sodium 134. Albumin is 2.8. TSH is normal. IMPRESSION: 1. Upper gastrointestinal bleed. 2. Coronary artery disease. 3. Diabetes. 4. Morbid obesity. He has to go down for a repeat upper GI endoscopy with associated procedures. Pulmonary going to fol low while in the MICU. Supportive care. Early ambulation. We will follow. Consultation note, 70 minutes of which 50% in direct patient care.
--- NOTE | 2018-03-04 12:31 | CON ---
GASTROENTEROLOGY CONSULTATION NOTE DATE OF CONSULTATION: 03/01/2018 HISTORY OF PRESENT ILLNESS: Mr. Yanes is a 52-year-old man with cirrhosis, apparently from fatty li parvin disease, who underwent EGD with banding of a large grade 4 esophageal varix on 02/19/2018. On nd, 02/25, he developed nausea and vomiting. He has had persistent nausea and vomiting over the la st several days and twice this morning, he vomited dark red bloody emesis. He did come to the office and saw the physician assistant engineer yesterday for the nausea and vomiting. At that point, he was spitti ng up some coffee ground appearing material, but no elizabeth hematemesis. He was set up for repeat EGD for completion banding. He was given Zofran; however, he continued to have the nausea and vomiting a nd then the hematemesis, so he went onto the emergency room. He has had no abdominal pain with this. On Sunday, when he first developed the symptoms, he went to an outside hospital and was admitted an d was found to be encephalopathic and was given lactulose for that. Yesterday, he did not take lactu lose. Today, he is somewhat confused; however, his states that he did have 2 or 3 stools yester day and a couple stools today. No elizabeth bloody stools were reported. He has had periodic episodes o f nausea with vomiting that will go on for a few hours around once a month or so, which he attributes to stress. PAST MEDICAL HISTORY: Cirrhosis of the liver, diabetes mellitus, hypertension, hyperlipidemia, morbi d obesity, hepatic encephalopathy and esophageal varices. PAST SURGICAL HISTORY: Coronary artery bypass graft, EGD with banding of esophageal varices on 02/19. SOCIAL HISTORY: No alcohol, tobacco or drugs. He is . FAMILY HISTORY: Negative for GI malignancy or liver disease. ALLERGIES: No known drug allergies. MEDICATIONS: Prior to admission; ondansetron, Janumet, furosemide, lisinopril, nadolol 20 mg daily, aspirin 81 mg daily, Crestor, lactulose 30 mL twice daily and Prilosec 20 mg daily. REVIEW OF SYSTEMS: Negative x10 systems reviewed except as stated in the history of present illness. PHYSICAL EXAMINATION: VITAL SIGNS: Temperature 98.8, pulse 96 and blood pressure 162/62. GENERAL: He is in no acute distress. He is awake and alert. He is confused. He is oriented to his name and place. HEENT: Oropharynx is clear, without lesions. NECK: No cervical or supraclavicular lymphadenopathy. LUNGS: Clear to auscultation bilaterally. HEART: Regular rate and rhythm. ABDOMEN: Soft, nontender and nondistended. Bowel sounds are present. EXTREMITIES: No lower extremity edema. NEUROLOGIC EXAM: He has obvious asterixis. LABORATORY DATA: Ammonia 126, creatinine 0.8, bilirubin 2.0, AST 36, ALT 31, alkaline phosphatase 11 1, albumin 2.8, lipase 40. INR 1.3. White blood cell count 7.4, hemoglobin 11.8 and platelets 80,00 0. IMPRESSION: 1. Cirrhosis of the liver secondary most likely to fatty liver disease. MRI of the liver on 018 was negative for hepatoma. Alpha fetoprotein on 01/01/2018 was 1.3. He does have decompensated cirrhosis in light of the hepatic encephalopathy and varices. His bilirubin is elevated at 2. His c reatinine has been normal. His albumin is low at 2.8. 2. Recent banding of a large esophageal varix. He now presents with some mild hematemesis. I would not expect that the degree of hematemesis, which is very small would be due to significant variceal bleed. His hemoglobin remains normal. We will plan esophagogastroduodenoscopy today to reassess the varices and potentially perform additional banding. 3. Hepatic encephalopathy. RECOMMENDATIONS: 1. Octreotide drip. 2. Pantoprazole IV. 3. Lactulose 30 grams 3 times daily. This dose will need to be adjusted to achieve 3-4 bowel moveme nts per day.
[2018-03-04] MEDS: Insulin Detemir 100 UNITS/ML 18 UNITS in Pre-Filled Syringe 1 EACH SC SCH (20:26)
[2018-03-04] MEDS: cefTRIAXone\\ROCEPHIN 1 GM in Syringe 10 ML IVPB SCH (20:26)
[2018-03-05 05:23] LABS: #Eosinphils 0.1 thou/uL (0.0-0.7); #Lymphocytes 0.9 thou/uL (1.20-3.40); #Monocytes 0.4 thou/uL (0.11-0.59); #Neutrophils 1.8 thou/uL (1.40-6.50); %Eosinophils 3.6 % (0.0-10.0); %Lymphocytes 28.7 % (21.0-51.0); %Monocytes 13.5 % (0.0-10.0); %Neutrophils 54.2 % (42.0-75.0); Hemoglobin 9.3 g/dL (14.0-18.0); Mean Corpuscular HGB CONC 32.4 g/dL (32.0-36.0); Mean Corpuscular Hemoglobin 34.7 pg (27.0-31.0); Mean Platelet Volume 10.3 fL (7.4-10.4); Platelet Count 27 thou/uL (130-400); RBC Distribution Width 15.5 % (11.5-14.5); Red Blood Cell (RBC) Count 2.68 mill/uL (4.70-6.10); White Blood Cell (WBC) Count 3.3 thou/uL (4.8-10.8)
[2018-03-05 05:26] LABS: INR-International Normal Ratio 1.6; Prothrombin Time 19.5 SEC (12.0-14.7)
[2018-03-05 05:30] LABS: ALT (SGPT) 56 U/L (8-55); AST (SGOT) 82 U/L (5-34); Albumin 2.6 g/dL (3.5-5.0); Alkaline Phosphatase 101 U/L (40-150); Anion Gap 8 mmol/L (10-20); BUN (Urea Nitrogen) 11 mg/dL (8.4-25.7); Bilirubin, Total 2.3 mg/dL (0.2-1.2); Calc. Creatinine Clearance 241 mL/min (70-130); Calcium 8.1 mg/dL (7.8-10.44); Carbon Dioxide 26 mmol/L (22-29); Chloride 106 mmol/L (98-107); Estimated GFR-MDRD Greater than 90; Globulin 2.5 g/dL (2.4-3.5); Glucose 169 mg/dL (70-105); Potassium 3.7 mmol/L (3.5-5.1); Protein, Total 5.1 g/dL (6.0-8.3); Sodium 136 mmol/L (136-145)
[2018-03-05] MEDS: HumaLOG 300 UNITS/3 ML VIAL SC PRN ×2 (06:25→18:55)
--- NOTE | 2018-03-05 07:43 | PRG ---
DATE OF SERVICE: 03/04/2018 SUBJECTIVE: The patient is feeling significantly better after the weekend. His mentation is cleared . He is alert and oriented and aware of his surroundings of what is going on. He admits to have con tinued elevated blood sugars. Denies abdominal pain. Continued to have some diarrhea. No blood in the stool, no melena noted. His appetite is improved, but he is concerned about too much sugar in hi s diet. OBJECTIVE: VITAL SIGNS: Temperature 98.5, pulse of 80, respirations 20, blood pressure 133/55. GENERAL: He is awake and alert, in no acute distress. Speech is clear. HEENT: Mucosa is moist. NECK: Supple. HEART: Regular rate and rhythm. LUNGS: Clear. ABDOMEN: Morbidly obese. EXTREMITIES: With 1+ edema. LABORATORY DATA: From 03/04/2018 include white blood cell count of 4,000, hemoglobin and hematocrit of 8.2 and 23.7, platelets of 42,000. PT 18.8 and PTT 26.7. Sodium 133, potassium 4.4, chloride 106 , CO2 of 23, BUN and creatinine 19 and 0.82. Serum glucose was 248, calcium was 7.8, albumin of 2.4, total bilirubin 1.7, AST and ALT were 65 and 44. ASSESSMENT AND PLAN: This is a 52-year-old gentleman with type 2 diabetes, coronary artery disease, admitted for upper gastrointestinal bleed and hepatic encephalopathy. 1. Upper gastrointestinal bleed, status post repeat banding of the varices that seems to have resolv ed with his blood count being stable. We will continue to follow closely. He has planned a repeat b anding of his varices as an outpatient. 2. Hepatic encephalopathy has resolved, status post lactulose therapy. We will continue to follow a nd watch his ammonia levels. 3. Type 2 diabetes, uncontrolled. We will increase his insulin and continue to monitor. 4. Coronary artery disease is stable. I appreciate cardiology evaluation. We will continue outpati ent followup. DISPOSITION: I will continue to follow as he is clinically improved and watch his values including h is blood count, liver enzymes, and ammonia level. Hopefully home in the next couple of days.
--- NOTE | 2018-03-05 08:04 | PRG ---
DATE OF SERVICE: 03/05/2018 SUBJECTIVE: The patient feels better. His appetite is improved. He is walking with a walking progr am. He states he continues to feel confused, has some problems thinking clearly, sometimes issues wi th finding the correct words. No falls, but continues to be weak with a walking program. OBJECTIVE: VITAL SIGNS: Temperature 98.8, pulse of 86, respirations 20, blood pressure 134/64, pulse oximetry i s 95% on room air. GENERAL: He is awake and alert, in no acute distress. Speech is clear and fluent, occasionally is s low to answer questions. HEENT: Mucosa is moist. NECK: Supple. HEART: Regular rate and rhythm. LUNGS: Clear. ABDOMEN: Morbidly obese, soft, nontender, nondistended. EXTREMITIES: With 1+ edema. LABORATORY DATA: White blood cell count 3.3, hemoglobin and hematocrit 9.3 and 28.8, which is improv ed from yesterday, platelets of 27,000, which is down from 42,000 yesterday. PT, PTT 19.5 and 20.0, sodium 136, potassium 3.7, chloride 106, CO2 of 26, BUN and creatinine 11 and 0.76. Serum glucose of 169, calcium of 8.1, total bilirubin is increased to 2.3, ALT and AST are higher at 82 and 56, alkal ine phosphatase normal at 101, albumin of 2.6. ASSESSMENT AND PLAN: This is a 52-year-old gentleman with a history of nonalcoholic steatohepatitis and chronic cirrhosis, admitted for upper gastrointestinal bleed secondary to esophageal varices. 1. Upper gastrointestinal bleed. This appears to be stable with hemoglobin and hematocrit rising. He is status post EGD and banding of the varices. We will continue treatment as an outpatient. 2. Hepatic encephalopathy seems to be improving with lactulose therapy. We will continue to watch h is ammonia levels. 3. Type 2 diabetes is improved. We will continue. 4. Coronary artery disease is stable. I will continue his medications and monitor. 5. Transaminitis with history of nonalcoholic steatohepatitis. We will continue to follow, consider a liver ultrasound if worsens. DISPOSITION: I discussed with and patient, will put a consult in for inpatient rehab for maxx nued strength training, and hopefully continued improvement of his encephalopathy.
[2018-03-05] MEDS: Insulin Detemir 100 UNITS/ML 18 UNITS in Pre-Filled Syringe 1 EACH SC SCH ×2 (08:40→20:48)
--- NOTE | 2018-03-05 08:53 | PRG ---
DATE OF SERVICE: 03/05/2018 This morning he is doing well. No shortness of breath, no abdominal pain. He is supposed to go to [facility] from here. PHYSICAL EXAMINATION: VITAL SIGNS: His temperature is 98, sats 97% on room air, respirations 20, pulse 86, blood pressure 134/60. CHEST: No wheezing. CARDIAC: Normal S1, S2, no gallops. ABDOMEN: Massive. EXTREMITIES: Trace edema. LABORATORY: White count is 3000, H&H is 9 and 28, platelet count 27,000. INR is 1.6, albumin is 2.6 . IMPRESSION: 1. Morbid obesity. 2. Encephalopathy, metabolic, improved. 3. Gastrointestinal bleeds, varices secondary to hepatitis. 4. Severe deconditioning. PLAN: Continue aggressive PT and supportive care. Switch over to oral medication. DISPOSITION: As per GI.
[2018-03-05] MEDS: cefTRIAXone\\ROCEPHIN 1 GM in Syringe 10 ML IVPB SCH (19:59)
--- NOTE | 2018-03-05 20:59 | PRG ---
DATE OF SERVICE: 03/05/2018 SUBJECTIVE: Mr. Yanes is feeling well today. He has been up walking the halls and worked with [employer]. He has no abdominal pain. He has had 3 good bowel movements today. He has had no blood in the stool. His mental status has been clear. OBJECTIVE: VITAL SIGNS: Temperature 98.6, pulse 83, blood pressure 119/50. GENERAL: He is in no acute distress, alert and oriented x3. He has no asterixis. LUNGS: Clear to auscultation bilaterally. HEART: Regular rate and rhythm. ABDOMEN: Soft, nontender, nondistended. Bowel sounds are present. EXTREMITIES: 1+ pitting lower extremity edema. LABORATORY DATA: Creatinine 0.76, bilirubin 2.3, albumin 2.6. INR is 1.6. White blood cell count 3 .3, hemoglobin 9.3, platelets 27. IMPRESSION: 1. Cirrhosis of liver, most likely secondary to fatty liver disease, decompensated with encephalopat hy and esophageal varices. He has elevated INR, low albumin and elevated bilirubin. He has thromboc ytopenia related to the portal hypertension. 2. Gastrointestinal bleed secondary to esophageal varices, appears to be resolved at this point, sta tus post banding. 3. Hepatic encephalopathy, improved with lactulose. The encephalopathy was triggered by the bleed. We will continue scheduled lactulose; however, if he develops any further encephalopathy nor that th e bleeding has resolved then he will need to start Xifaxan as well. 4. Spontaneous bacterial peritonitis prophylaxis. He is on ceftriaxone IV. His IV came out this af ternoon. We will stop the ceftriaxone and switch over to levofloxacin this evening and then once catrachita orrow. That will complete the course of antibiotics. Tomorrow between 7:00 and 8:00 p.m., he can re ceive 1 dose and that will be all that he needs to complete his course of antibiotics. RECOMMENDATIONS: 1. Octreotide has been discontinued. 2. Change lactulose to 30 grams twice daily in the morning and at noon. We will stop the evening do se to avoid nocturnal diarrhea. 3. Complete a course of antibiotics as stated above. 4. Follow up in GI clinic in 1 to 2 weeks. 5. Anticipate discharge home tomorrow. 6. Continue low salt diet. 7. We will initiate process for referral to a transplant center as an outpatient.
[2018-03-06 03:48] LABS: #Eosinphils 0.1 thou/uL (0.0-0.7); #Lymphocytes 0.9 thou/uL (1.20-3.40); #Monocytes 0.2 thou/uL (0.11-0.59); #Neutrophils 1.4 thou/uL (1.40-6.50); %Basophils 0.9 % (0.0-1.0); %Eosinophils 3.9 % (0.0-10.0); %Lymphocytes 34.9 % (21.0-51.0); %Monocytes 8.3 % (0.0-10.0); Mean Corpuscular HGB CONC 33.1 g/dL (32.0-36.0); Mean Platelet Volume 10.6 fL (7.4-10.4); Platelet Count 40 thou/uL (130-400); RBC Distribution Width 16.8 % (11.5-14.5); White Blood Cell (WBC) Count 2.6 thou/uL (4.8-10.8)
[2018-03-06 03:55] LABS: INR-International Normal Ratio 1.8; PTT 33.2 SEC (22.9-36.1); Prothrombin Time 21.5 SEC (12.0-14.7)
[2018-03-06 04:08] LABS: ALT (SGPT) 52 U/L (8-55); AST (SGOT) 72 U/L (5-34); Albumin 2.4 g/dL (3.5-5.0); Alkaline Phosphatase 109 U/L (40-150); Anion Gap 10 mmol/L (10-20); BUN (Urea Nitrogen) 8 mg/dL (8.4-25.7); Bilirubin, Total 2.2 mg/dL (0.2-1.2); Calc. Creatinine Clearance 255 mL/min (70-130); Calcium 8.1 mg/dL (7.8-10.44); Carbon Dioxide 24 mmol/L (22-29); Chloride 106 mmol/L (98-107); Estimated GFR-MDRD Greater than 90; Globulin 2.3 g/dL (2.4-3.5); Glucose 202 mg/dL (70-105); Potassium 3.6 mmol/L (3.5-5.1); Protein, Total 4.7 g/dL (6.0-8.3); Sodium 136 mmol/L (136-145)
[2018-03-06] MEDS: HumaLOG 300 UNITS/3 ML VIAL SC PRN (05:57)
[2018-03-06 07:44] VITALS: BP 136/63; TEMP 98.7
[2018-03-06] MEDS: Insulin Detemir 100 UNITS/ML 18 UNITS in Pre-Filled Syringe 1 EACH SC SCH (08:13)
== END 2018-03-06 09:04 | DRG 432 ==
LOC: ERS 23:55 → IMCU/EMU 03-01 05:46
PROVIDERS: ADMIT Family Medicine; ATTEND Family Medicine
PROC: 06L38CZ Occlusion of Esophageal Vein with Extraluminal Device, Via Natural or Artificial Opening Endoscopic (ICD-10-PCS; principal; 2018-03-01)
PROC: 05JY3ZZ Inspection of Upper Vein, Percutaneous Approach (ICD-10-PCS; 2018-03-01)
DX: K74.69 Other cirrhosis of liver (principal); I85.11 Secondary esophageal varices with bleeding; K72.90 Hepatic failure, unspecified without coma; K75.81 Nonalcoholic steatohepatitis (NASH); Z68.42 Body mass index [BMI] 45.0-49.9, adult; E66.01 Morbid (severe) obesity due to excess calories; I25.10 Atherosclerotic heart disease of native coronary artery without angina pectoris; E11.9 Type 2 diabetes mellitus without complications; I10 Essential (primary) hypertension; E78.5 Hyperlipidemia, unspecified; Z95.1 Presence of aortocoronary bypass graft
CPT/HCPCS: 36415; 36416; 71045; 71046; 80053; 80061; 82140; 83605; 83690; 83735; 85025; 85610; 85730; 86850; 86900; 86901; 93005; 96361; 96365; 96366; 96367; 96368; 96375; 96376; C1751; C9113; G8978-GP-CJ; G8979-GP-CJ; G8980-GP-CJ; G8987-GO-CI; G8988-GO-CI; G8989-GO-CI; J0696; J1815; J2001; J2354; J2405; J2550; J2704; J3010; J3475; J7050

== ENCOUNTER 2018-03-12 09:51 | Observation (INO) | payer OTHER ==
[2018-03-12 10:39] LABS: Bilirubin Negative (Negative); Blood, Urine Negative (Negative); Clarity CLEAR (Clear); Glucose, Urine (Dipstick) Negative (Negative); Leukocyte Negative (Negative); Nitrite Negative (Negative); Protein, Urine (Dipstick) Negative (Neg-Trace); Specific Gravity, Urine 1.004 (1.002-1.036); Urobilinogen 0.2 mg/dL (0.2-1.0); pH, Urine 6.5 (5.0-9.0)
--- NOTE | 2018-03-12 11:22 | RAD ---
PORTABLE CHEST: History: Dyspnea. Shortness of breath. Comparison: 03-01-18 FINDINGS: Heart size is enlarged. There are post op sternotomy changes. No signs of overt failure or focal infi ltrates. IMPRESSION: Marked cardiomegaly. Post op sternotomy change. POS: [facility]
[2018-03-12 11:48] LABS: #Lymphocytes 0.9 thou/uL (1.20-3.40); #Monocytes 0.3 thou/uL (0.11-0.59); #Neutrophils 1.1 thou/uL (1.40-6.50); %Basophils 1.8 % (0.0-1.0); %Eosinophils 1.5 % (0.0-10.0); %Lymphocytes 38.5 % (21.0-51.0); %Neutrophils 46.2 % (42.0-75.0); Hemoglobin 9.8 g/dL (14.0-18.0); Mean Corpuscular Hemoglobin 33.6 pg (27.0-31.0); Platelet Count 57 thou/uL (130-400); RBC Distribution Width 16.1 % (11.5-14.5); Red Blood Cell (RBC) Count 2.92 mill/uL (4.70-6.10); White Blood Cell (WBC) Count 2.3 thou/uL (4.8-10.8)
[2018-03-12 12:10] LABS: ALT (SGPT) 41 U/L (8-55); AST (SGOT) 62 U/L (5-34); Albumin 2.5 g/dL (3.5-5.0); Alkaline Phosphatase 182 U/L (40-150); Anion Gap 14 mmol/L (10-20); BUN (Urea Nitrogen) 9 mg/dL (8.4-25.7); Bilirubin, Total 1.9 mg/dL (0.2-1.2); Calc. Creatinine Clearance 0 mL/min (70-130); Calcium 7.8 mg/dL (7.8-10.44); Carbon Dioxide 22 mmol/L (22-29); Chloride 105 mmol/L (98-107); Estimated GFR-MDRD Greater than 90; Globulin 2.5 g/dL (2.4-3.5); Glucose 214 mg/dL (70-105); Potassium 3.6 mmol/L (3.5-5.1); Sodium 137 mmol/L (136-145)
[2018-03-12 12:13] LABS: CKMB 1.5 ng/mL (0-6.6); Troponin I Less than 0.010 ng/mL (< 0.028)
[2018-03-12] MEDS ORDERED: Morphine 4 MG/ML VIAL ONE (13:00)
--- NOTE | 2018-03-12 14:18 | CT ---
CT ANGIO CHEST PERFORMED WITH INTRAVENOUS CONTRAST ENHANCEMENT WITH 3D RECONSTRUCTIONS: HISTORY: Shortness of breath. FINDINGS: The lungs are clear of any infiltrative process. No signs of interstitial edema or pleural effusion. There is a noncalcified, 7 mm right middle lobe pulmonary nodule present. No additional nodules are seen. There is no significant mediastinal or hilar adenopathy. There are moderate coronary artery calcific ations. The thoracic aorta is normal in caliber. The pulmonary arteries are fairly well opacified. The main pulmonary artery is dilated, and this causes less than optimal opacification distally, but there is no CT evidence for pulmonary embolus. Cirrhotic changes of the liver, splenomegaly, and ascites is noted. IMPRESSION: 1. A 7 mm, noncalcified right middle lobe pulmonary nodule. This needs to be followed up based on F leischner guidelines and the risk factors of the patient. 2. Dilated main pulmonary artery, suggestive of pulmonary artery hypertension. 3. No CT evidence of pulmonary embolus. 4. Cirrhosis with splenomegaly and ascites. POS: [facility]
[2018-03-12 15:41] LABS: Troponin I Less than 0.010 ng/mL (< 0.028)
[2018-03-12] MEDS ORDERED: Ondansetron ODT 4 MG TAB SL PRN (15:52)
[2018-03-12] MEDS ORDERED: Acetaminophen 325 MG TAB PO PRN (15:52)
[2018-03-12] MEDS ORDERED: Ondansetron HCl/PF 4 MG/2 ML Vial IVP PRN (15:52)
[2018-03-12] MEDS ORDERED: ISOVUE-370 76%-LOCM 1 ML ONE (16:09)
[2018-03-12] MEDS ORDERED: Dextrose 50% Abboject 50 ML SYRINGE IVP PRN (17:34)
[2018-03-12] MEDS ORDERED: Dextrose 5% in Water 1,000 ML IV PRN (17:34)
[2018-03-12] MEDS ORDERED: HumaLOG 300 UNITS/3 ML VIAL SC PRN (17:34)
[2018-03-12] MEDS ORDERED: Potassium Chloride 20 MEQ TAB PO SCH ×2 (17:45)
[2018-03-12 18:58] LABS: Troponin I Less than 0.010 ng/mL (< 0.028)
--- NOTE | 2018-03-12 20:08 | CON ---
DATE OF CONSULTATION: 03/12/2018 REASON FOR CONSULTATION: Shortness of breath. PRIMARY CARE PROVIDER: Darien Bruno M.D. HISTORY OF PRESENT ILLNESS: Mr. Yanes is a 52-year-old gentleman who recently presented with shortn ess of breath. He has a history of CAD status post bypass surgery in addition to diabetes mellitus. He recently was in the hospital for elevated ammonia level. This improved. He then was seen and ev aluated for his post-hospitalization follow up with Dr. Torrey Acosta. He was markedly short of kirk ath noted in the waiting room. EMS was then called. During my visit, he states he has not received any medications. He has only taken his p.o. medicatio ns and feels back to baseline. No chest pain or pressure noted. PAST MEDICAL HISTORY: As above including hypertension and nonalcoholic cirrhosis. SOCIAL HISTORY: No current tobacco or alcohol use. CURRENT MEDICATIONS: Include Lasix, Levemir, lactulose, pantoprazole and nadolol. REVIEW OF SYSTEMS: A 10-point review of systems was reviewed and as above, otherwise negative. PHYSICAL EXAMINATION: GENERAL: Patient is a pleasant male who is in no acute distress. The patient appears older than his stated age. He is morbidly obese. VITAL SIGNS: Blood pressure 114/60, pulse 75, temperature 97.8. NEUROLOGIC: The patient is alert and oriented times 3 with no focal neurologic deficits. HEENT: Sclerae without icterus. Mouth has moist mucous membranes with normal pallor. NECK: No JVD. Carotid upstroke brisk. No bruits bilaterally. LUNGS: Clear to auscultation with unlabored respirations. BACK: No scoliosis or kyphosis. CARDIAC: Regular rate and rhythm with normal S1 and S2. No S3 or S4 noted. No significant rubs, mu rmurs, thrills, or gallops noted throughout the precordium. PMI is not displaced. There is no keely ternal heave. ABDOMEN: Soft, nontender, nondistended. No peritoneal signs present. No hepatosplenomegaly. No ab normal striae. EXTREMITIES: 2+ femoral and 2+ dorsalis pedis pulses. 2 to 3+ pitting edema with varicosities prese nt, likely related to his cirrhosis. SKIN: No gross abnormalities. PERTINENT LABS: Hemoglobin 9.8, white blood cell count 2.3, glucose 214. AST and ALT of 62-41. BNP 192. Most recent echo dated 2016 with LVEF of 55%-60%. IMPRESSION: 1. Shortness of breath. 2. Anasarca. RECOMMENDATIONS: Mr. Yanes is back to baseline. It is unknown what he truly received. He may have received medications in the ER that caused his improvement. At this point, continue to monitor over night. Place him on his outpatient medications and final discharge in a.m. Further recommendations per Dr. Shona Noe.
[2018-03-12] MEDS ORDERED: Insulin Detemir 100 UNITS/ML 20 UNITS in Pre-Filled Syringe SC SCH (21:00)
[2018-03-12] MEDS ORDERED: Furosemide 40 MG TAB PO SCH (21:00)
--- NOTE | 2018-03-12 21:46 | HP ---
DATE OF ADMISSION: 03/12/2018 CHIEF COMPLAINT: Shortness of breath. HISTORY OF PRESENT ILLNESS: This is a 52-year-old gentleman with known coronary artery disease statu s post coronary artery bypass graft, type 2 diabetes, liver cirrhosis from nonalcoholic steatohepatit is with recent admission 2 weeks ago for upper GI bleed secondary to esophageal varices, due to the s teatohepatitis and cirrhosis. He was admitted on 03/01/2018, was seen by Dr. Branch, who performed a repeat banding of large esophageal varices. He was admitted with hepatic encephalopathy, which impro alina with rectal, then oral lactulose. He was seen by Cardiology during that admission as well. Foll owing the banding of the varices, his GI bleeding discontinued. His blood count remained stable and he was discharged home in good condition. He was seen today in my office in followup. He was very d yspneic with tachypnea, feeling short of breath, dizzy, and near syncope. There was a concern of him having a repeat upper GI bleed as he was pale, tachypneic, and tachycardic in my office. EMS was ca lled and brought into the emergency department. Once he got to the Emergency Department, was placed on oxygen and given Lasix. He had significant improvement in his shortness of breath. He had normal cardiac enzymes. He did have a slight elevation in his BNP, marked cardiomegaly on his chest x-ray, pulmonary nodule on the CT angiogram, and is now being admitted for further evaluation and treatment for his dyspnea. PAST MEDICAL HISTORY: Type 2 diabetes, insulin dependent; hypertension; hyperlipidemia; morbid obesi ty; history of nonalcoholic steatohepatitis with liver cirrhosis and recent esophageal varices, which were bleeding; and history of coronary artery disease. PAST SURGICAL HISTORY: Coronary artery bypass graft in 2010; EGD in 2010, 2017, and 2018 with bandin g; and colonoscopy in 2018. MEDICATIONS: Include Lantus 20 units twice a day; Lasix 20 mg daily, which was recently increased to 20 mg b.i.d.; spironolactone 25 mg daily, which he had discontinued during his last hospitalization; and NovoLog p.r.n. ALLERGIES: None known. FAMILY HISTORY: Father with type 2 diabetes. Mother with cancer and hypertension. SOCIAL HISTORY: He is . No smoking, no alcohol. Works in construction and remodeling. REVIEW OF SYSTEMS: As per the history of present illness with recent illness as described above. Ge neral: No recent fevers, chills, or upper respiratory symptoms. HEENT: No headache, visual or hear ing changes. Cardiac: Positive shortness of breath. No chest pain. Pulmonary: No cough, no hemop tysis. Gastrointestinal: Recent GI bleed. Denies abdominal pain at this time. No melena or hemato chezia. Genitourinary: No history of urinary tract infection. No hematuria or dysuria. Neurologic : Positive for weakness. Positive for near syncope. Positive for dizziness. PHYSICAL EXAMINATION: VITAL SIGNS: Temperature 97.8, pulse of 75, respirations 17, blood pressure 114/60. GENERAL: He is awake and alert, in no acute distress. Speech is clear. Mucosa is moist. In my off ice, he was pale in appearance, but this has resolved. NECK: Supple. HEART: Regular rate and rhythm. LUNGS: Clear bilaterally. ABDOMEN: Morbidly obese, soft, nontender, and nondistended. EXTREMITIES: With 2+ edema bilaterally. LABORATORY DATA AND X-RAY FINDINGS: Urinalysis was normal. White blood cell count 2300, hemoglobin and hematocrit 9.8 and 31.6 with macrocytic indices, and platelets of 57,000. Sodium 136, potassium 3.6, chloride 105, CO2 of 22, BUN and creatinine 9 and 0.73 with a GFR greater than 90, serum glucose of 214, total bilirubin 1.9, AST and ALT 62 and 41, and alkaline phosphatase slightly elevated at 18 2. Troponin I less than 0.01 x3. Ammonia level of 68. BNP is slightly elevated at 192. Again, gabriela st x-ray showed cardiomegaly. CT angiogram showed no evidence of pulmonary embolism. There is a dil ated main pulmonary artery suggestive of pulmonary artery hypertension, a 7-mm right middle lobe nodu le, cirrhosis with splenomegaly and ascites. ASSESSMENT AND PLAN: This is a 52-year-old gentleman now with multiple medical problems and recent a dmission, now with, 1. Dyspnea. 2. Known coronary artery disease, possibly mild congestive heart failure. We will continue Lasix an d restart on spironolactone. Cardiology evaluating for possible repeat of his echocardiogram. 3. Type 2 diabetes. We will continue insulin and sliding scale. 4. Liver cirrhosis, recent gastrointestinal bleed from esophageal varices. We will continue Protoni x, lactulose, and beta solomon. 5. Cirrhosis with ascites. We will continue to monitor. May need liver ultrasound.
[2018-03-13 05:10] LABS: Iron 41 ug/dL (65-175); Iron Binding Capacity, Total 181 mcg/dL (261-462)
[2018-03-13] MEDS ORDERED: Spironolactone 25 MG TAB PO SCH ×2 (08:00→09:00)
[2018-03-13] MEDS ORDERED: Carvedilol 6.25 MG TAB PO SCH (08:00)
[2018-03-13] MEDS ORDERED: Nadolol 40 MG TAB PO SCH ×2 (09:00)
[2018-03-13] MEDS ORDERED: Furosemide 40 MG TAB PO SCH (09:00)
--- NOTE | 2018-03-13 09:37 | DIS ---
DATE OF ADMISSION: 03/12/2018 DATE OF DISCHARGE: 03/13/2018 ADMISSION DIAGNOSES: Dyspnea, rule out myocardial infarction, rule out pulmonary embolus, rule out severe anemia. DISCHARGE DIAGNOSES: Dyspnea, resolved. OTHER DIAGNOSES: Liver cirrhosis with esophageal varices status post upper gastrointestinal bleed, c ardiomyopathy, known coronary artery disease, type 2 diabetes. CONSULTATIONS: Dr. Ta and Dr. Noe for Cardiology. PROCEDURES: Telemetry monitoring, diuresis. HOSPITAL COURSE: This is a 52-year-old gentleman with known coronary disease, status post coronary b ypass graft, type 2 diabetes, liver cirrhosis with recent upper gastrointestinal bleed secondary to e sophageal varices who was admitted on 03/01/2018 for the upper GI bleed. He underwent esophageal ban ding at that time. His encephalopathy resolved during that hospitalization and he was discharged gabriel e. He presented to my office for outpatient followup and was dyspneic, dizzy and had a near syncopal episode. He was brought to the emergency department for evaluation. He was placed on oxygen and gi shonna Lasix in the ED and has had significant improvement of his shortness of breath. He has been back at his baseline since yesterday afternoon. He was seen by Dr. Ta yesterday and agreed with j ust monitoring overnight. He continued to do well and has not had any further episodes of dyspnea, c hest pain. He is ambulating in the room without difficulty, just awaiting Cardiology followup this m orning. DISCHARGE PHYSICAL EXAMINATION: VITAL SIGNS: Temperature 98.4, pulse is 70, respirations 16, blood pressure 116/63, pulse ox 95% on room air. GENERAL: He is awake and alert, in no acute distress. No conversational dyspnea. Mucosa is moist. NECK: Supple, no JVD. HEART: Regular rate and rhythm. LUNGS: Clear bilaterally. ABDOMEN: Obese, soft. EXTREMITIES: With 1+ edema. LABORATORY DATA: Laboratory data from this morning is pending. Accu-Cheks are 218, 288 and 161. Ir on level was low at 40. Chest x-ray from yesterday revealed cardiomegaly. A CT angiogram was negative for PE. It revealed a right pulmonary nodule. ASSESSMENT AND PLAN: This is a 52-year-old gentleman with multiple medical problems admitted for dys pnea. He has improved and appears to be stable for discharge at this time. DISCHARGE MEDICATIONS: Iron sulfate 325 mg b.i.d., Lasix 40 mg daily, lactulose 30 grams t.i.d., Pro tonix 40 mg daily, spironolactone 25 mg daily, Levemir 25 units b.i.d., nadolol 20 mg daily. FOLLOWUP INSTRUCTIONS: The patient is to follow up in my office in [address] Noe and Dr. Jarad patrick in 1-2 weeks.
[2018-03-13] MEDS ORDERED: Iron Dextran 500 MG, Admixture Fee 1 EACH in Sodium Chloride 0.9% 250 ML IVPB SCH (10:45)
[2018-03-13] MEDS: Insulin Detemir 100 UNITS/ML 25 UNITS in Pre-Filled Syringe 1 EACH SC SCH ×2 (11:09→20:39)
[2018-03-13 11:41] LABS: Anion Gap 8 mmol/L (10-20); BUN (Urea Nitrogen) 8 mg/dL (8.4-25.7); Calc. Creatinine Clearance 266 mL/min (70-130); Calcium 8.3 mg/dL (7.8-10.44); Carbon Dioxide 29 mmol/L (22-29); Chloride 104 mmol/L (98-107); Estimated GFR-MDRD Greater than 90; Glucose 222 mg/dL (70-105); Potassium 3.8 mmol/L (3.5-5.1); Sodium 137 mmol/L (136-145)
[2018-03-13] MEDS: SODIUM FERRIC GLUCONATE IVPB SCH ×2 (11:48→23:31)
[2018-03-13] MEDS: SODIUM CHLORIDE IVPB SCH ×2 (11:48→23:31)
[2018-03-13] MEDS: ADMIXTURE FEE IVPB SCH ×2 (11:48→23:31)
--- NOTE | 2018-03-13 13:23 | PRG ---
DATE OF SERVICE: 03/13/2018 SUBJECTIVE: Mr. Yanes is breathing better. His oxygen saturation is normal on room air. He has no chest pain or pressure. OBJECTIVE: VITAL SIGNS: Blood pressure 97/54 and pulse 70. LUNGS: Clear. CARDIAC: Normal S1, normal S2. ABDOMEN: Soft, nontender. EXTREMITIES: There is severe edema bilaterally. The patient is also up about 30 pounds of fluid fro m a few weeks ago. ASSESSMENT: 1. Congestive heart failure, extremely volume overloaded. 2. Iron deficiency anemia with an iron level of 41 and hemoglobin 9.8. 3. Previous bypass surgery. 4. Morbid obesity with BMI 50. PLAN: 1. Increase to intravenous diuretics. 2. Increase spironolactone. 3. We will change him from nadolol to Coreg. We will cut the dose, try to facilitate diuresis. 4. Try to get him to try to be in bed more elevation of feet to try to mobilize with his peripheral edema, which is severe.
[2018-03-13] MEDS: Furosemide 40 MG/4 ML VIAL SLOW IVP SCH (13:46)
[2018-03-13] MEDS: Spironolactone 25 MG TAB PO SCH (16:46)
[2018-03-13] MEDS: Carvedilol 6.25 MG TAB PO SCH (16:46)
[2018-03-13] MEDS ORDERED: Potassium Chloride 20 MEQ TAB PO SCH ×2 (18:00)
[2018-03-13] MEDS ORDERED: Furosemide 40 MG/4 ML VIAL SLOW IVP SCH (18:00)
[2018-03-14 05:13] LABS: Anion Gap 11 mmol/L (10-20); BUN (Urea Nitrogen) 7 mg/dL (8.4-25.7); Calc. Creatinine Clearance 274 mL/min (70-130); Calcium 7.8 mg/dL (7.8-10.44); Carbon Dioxide 26 mmol/L (22-29); Chloride 105 mmol/L (98-107); Estimated GFR-MDRD Greater than 90; Glucose 189 mg/dL (70-105); Potassium 3.3 mmol/L (3.5-5.1); Sodium 139 mmol/L (136-145)
[2018-03-14] MEDS: Furosemide 40 MG/4 ML VIAL SLOW IVP SCH ×2 (05:13→15:08)
[2018-03-14] MEDS: Spironolactone 25 MG TAB PO SCH ×2 (08:32→17:05)
[2018-03-14] MEDS: Carvedilol 6.25 MG TAB PO SCH (08:32)
[2018-03-14] MEDS: Insulin Detemir 100 UNITS/ML 25 UNITS in Pre-Filled Syringe 1 EACH SC SCH ×2 (08:36→20:54)
[2018-03-14] MEDS ORDERED: Potassium Chloride 20 MEQ TAB PO SCH ×4 (10:00→17:00)
[2018-03-14] MEDS ORDERED: Metolazone 5 MG TAB PO SCH (10:00)
[2018-03-14] MEDS: Carvedilol 3.125 MG TAB PO SCH (17:05)
[2018-03-14] MEDS ORDERED: Furosemide 40 MG/4 ML VIAL SLOW IVP SCH (20:00)
[2018-03-15 04:56] LABS: Anion Gap 9 mmol/L (10-20); BUN (Urea Nitrogen) 6 mg/dL (8.4-25.7); Calc. Creatinine Clearance 270 mL/min (70-130); Calcium 8.7 mg/dL (7.8-10.44); Carbon Dioxide 29 mmol/L (22-29); Chloride 104 mmol/L (98-107); Estimated GFR-MDRD Greater than 90; Glucose 140 mg/dL (70-105); Potassium 3.4 mmol/L (3.5-5.1); Sodium 139 mmol/L (136-145)
[2018-03-15] MEDS: Furosemide 40 MG/4 ML VIAL SLOW IVP SCH (06:06)
[2018-03-15] MEDS ORDERED: Potassium Chloride 20 MEQ TAB PO SCH ×4 (07:15→12:00)
[2018-03-15] MEDS ORDERED: Metolazone 5 MG TAB PO SCH (08:00)
--- NOTE | 2018-03-15 08:14 | PRG ---
DATE OF SERVICE: 03/15/2018 HISTORY: Mr. Yanes is doing better. He is breathing okay. He still has a lot of edema. The in and out are not accurate. PHYSICAL EXAMINATION: VITAL SIGNS: His blood pressure earlier this morning 94/51. Most recently 119/59, pulse 68. LUNGS: Clear. CARDIAC: Normal S1, S2. ABDOMEN: Soft, nontender. EXTREMITIES: Still moderate to severe edema. PERTINENT LABORATORIES: Potassium is 3.4. His weight recorded as 347, it was 359 two days ago. I am not really certain how accurate the weigh ts are. ASSESSMENT: Diastolic heart failure, improved. PLAN: 1. Give him one further dose of metolazone. 2. Additional potassium. 3. Should be able to change from furosemide to torsemide orally. 4. Okay with me to go home later this afternoon.
[2018-03-15] MEDS: Carvedilol 3.125 MG TAB PO SCH (08:50)
[2018-03-15] MEDS: Spironolactone 25 MG TAB PO SCH (08:51)
[2018-03-15] MEDS: Insulin Detemir 100 UNITS/ML 25 UNITS in Pre-Filled Syringe 1 EACH SC SCH (08:51)
[2018-03-15 11:43] VITALS: BP 112/55; TEMP 97.9
[2018-03-15] MEDS ORDERED: Torsemide 20 MG TAB PO SCH (14:00)
[2018-03-16] MEDS ORDERED: Potassium Chloride 20 MEQ TAB PO SCH ×2 (08:00)
[2018-03-16] MEDS ORDERED: Aspirin 81 mg Enteric Coated Tablet PO SCH (09:00)
--- NOTE | 2018-03-16 11:21 | ADD-DIS ---
ADDENDUM DATE OF ADMISSION: 03/12/2018 DATE OF DISCHARGE: 03/15/2018 ADMISSION DIAGNOSIS: Dyspnea, rule out myocardial infarction, rule out pulmonary embolism, rule out severe anemia. DISCHARGE DIAGNOSIS: Congestive heart failure exacerbation. OTHER DIAGNOSES: 1. Liver cirrhosis with esophageal varices, status post upper gastrointestinal bleed. 2. Cardiomyopathy. 3. Coronary artery disease. 4. Type 2 diabetes. CONSULTATIONS: Dr. Noe for Cardiology. PROCEDURES: Telemetry monitoring, IV diuresis. HOSPITAL COURSE: This 52-year-old gentleman with known coronary artery disease, cardiomyopathy with decreased left ventricular ejection fraction, and known liver cirrhosis with esophageal varices and r ecent admission for upper GI bleed, who was admitted from my office due to a sudden onset of shortnes s of breath and near syncope. Eventually ruled out for an ND, he was seen by Cardiology and initiate d on oral diuresis and then changed to IV diuresis. If possible he is to be discharged home the day after admission, but Dr. Noe felt that it would be more prudent to keep him to continue his diures is, otherwise he might be readmitted sooner. He underwent a chest x-ray which revealed cardiomegaly. CT angiogram was negative for PE. He improved during his hospitalization. Dr. Noe felt like he was not improving rapidly with the oral and IV Lasix and he was switched to Demadex at that time and had significant improvement in his diuresis. His weight on admission was over 360 and on discharge was down to 347 and stable for discharge on the day of discharge. DISCHARGE PHYSICAL EXAMINATION: VITAL SIGNS: Temperature 97.9, pulse of 70, respirations 18, pulse ox is 91%-93% on room air, blood pressure 112/55. GENERAL: He is awake and alert, in no acute distress. Speech is clear. HEENT: Mucosa is moist. NECK: Supple. HEART: Regular rate and rhythm. LUNGS: With decreased breath sounds. No wheeze, rales or rhonchi. ABDOMEN: Obese. EXTREMITIES: With trace edema bilateral. DISCHARGE LABORATORY DATA: White blood cell count 2300, hemoglobin and hematocrit 9.8 and 31.6 with macrocytic indices, and platelets of 57,000. Sodium 139, potassium 3.4, chloride 104, CO2 of 29, BUN and creatinine 6 and 0.72 with a GFR greater than 90. Accu-Cheks of 179, 161, 183. DISCHARGE MEDICATIONS: Include ferrous sulfate 325 mg daily, Humalog p.r.n., Levemir 25 units twice a day, carvedilol 3.125 mg b.i.d., K-Dur 20 mEq daily, torsemide 20 mg twice a day, aspirin 81 mg sara ly but cautiously due to his recent GI bleed, lactulose 30 grams t.i.d., pantoprazole 40 mg daily, an d spironolactone 25 mg b.i.d. He is to discontinue his furosemide and discontinue his nadolol. FOLLOWUP INSTRUCTIONS: The patient to follow up in my office in 1 week. Follow up with Dr. Hasmukh vázquez n 1-[address] Branch for Gastroenterology in 1-2 weeks.
== END 2018-03-15 16:07 | disposition home or self-care (01) ==
LOC: ERS 09:51 → 2SW 15:19
PROVIDERS: ADMIT Family Medicine; ATTEND Family Medicine
DX: I11.0 Hypertensive heart disease with heart failure (principal); I50.33 Acute on chronic diastolic (congestive) heart failure; K74.60 Unspecified cirrhosis of liver; I85.10 Secondary esophageal varices without bleeding; I25.10 Atherosclerotic heart disease of native coronary artery without angina pectoris; E11.9 Type 2 diabetes mellitus without complications; K75.81 Nonalcoholic steatohepatitis (NASH); E78.5 Hyperlipidemia, unspecified; E66.01 Morbid (severe) obesity due to excess calories; R18.8 Other ascites; D50.9 Iron deficiency anemia, unspecified; Z68.42 Body mass index [BMI] 45.0-49.9, adult; Z79.4 Long term (current) use of insulin; Z79.899 Other long term (current) drug therapy; Z95.1 Presence of aortocoronary bypass graft; Z98.890 Other specified postprocedural states
CPT/HCPCS: 36415; 36416; 71045; 71275; 80048; 80053; 81003; 82140; 82553; 82728; 83540; 83550; 83880; 84484; 85025; 93005; 93306; 96365; 96366; 96375; 96376; A4216; G0378; J1750; J1815; J1940; J2270; J2916; J7050

== ENCOUNTER 2018-03-19 07:22 | Day surgery (SDC) | payer OTHER ==
[2018-03-19] MEDS ORDERED: Lidocaine Viscous Sol 2% 15 ml UD Cup ONE (08:58)
--- NOTE | 2018-03-19 11:19 | OP ---
DATE OF PROCEDURE: 03/19/2018 PROCEDURE: Esophagogastroduodenoscopy with banding of esophageal varices. PREOPERATIVE DIAGNOSIS: Esophageal varices. OPERATIVE NOTE: Informed consent was obtained from the patient. He was sedated with total intraveno us anesthesia. He has been doing much better since his previous hospitalization. He has decreased f rom 360 pounds to 319 pounds with mobilization of the fluid. He has been feeling well and breathing better lately. He was sedated with total intravenous anesthesia. The endoscope was advanced easily to the second portion of the duodenum and retroflexion was performed in the stomach. The esophagus h ad one column grade 2-3 large varix, which protrudes more proximally now. The distal part of this va [place] is scarred down with an ulceration over it in the distal esophagus. This varix was banded x1, st ill in the lower part of the esophagus. Overall, he appears to be responding well to the banding. T he GE junction was normal. The stomach had a significant amount of retained food that obscured views of the stomach mucosa. The retroflexed views in the stomach were unremarkable. Pylorus and first a nd second portions of the duodenum were normal. IMPRESSION: Single moderately large varix banded. Ulceration was very shallow at the previous familia ng sites and the varix appears scarred down and is no longer protruding in the distal most esophagus. Single band was placed today over the larger part of the varix. He appears to be responding well t o banding. RECOMMENDATIONS: Repeat EGD in 3 months.
[2018-03-19] MEDS ORDERED: PROPOFOL 200 MG/20 ML VIAL ONE (16:05)
[2018-03-19] MEDS ORDERED: Lidocaine 1% PF 5 ML VIAL ONE (16:05)
== END 2018-03-19 10:30 | disposition home or self-care (01) ==
LOC: SDC 07:22
PROVIDERS: ATTEND Internal Medicine Gastroenterology
PROC: 06L38CZ Occlusion of Esophageal Vein with Extraluminal Device, Via Natural or Artificial Opening Endoscopic (ICD-10-PCS; principal; 2018-03-19)
DX: I85.00 Esophageal varices without bleeding (principal); K74.60 Unspecified cirrhosis of liver; Z79.899 Other long term (current) drug therapy
CPT/HCPCS: 36416; J2001; J2704

== ENCOUNTER 2018-05-17 04:21 | Inpatient (IN) | payer OTHER ==
[2018-05-17 05:40] LABS: ALT (SGPT) 30 U/L (8-55); AST (SGOT) 37 U/L (5-34); Acetaminophen Less than 6.0 mcg/mL (10.0-30.0); Albumin 3.4 g/dL (3.5-5.0); Alcohol Less than 10 mg/dL (Less than 10); Alkaline Phosphatase 177 U/L (40-150); Anion Gap 13 mmol/L (10-20); BUN (Urea Nitrogen) 12 mg/dL (8.4-25.7); Bilirubin, Total 2.2 mg/dL (0.2-1.2); CK (CPK) 130 U/L (30-200); Calc. Creatinine Clearance 0 mL/min (70-130); Carbon Dioxide 25 mmol/L (22-29); Chloride 105 mmol/L (98-107); Estimated GFR-MDRD Greater than 90; Globulin 3.2 g/dL (2.4-3.5); Glucose 337 mg/dL (70-105); Potassium 3.6 mmol/L (3.5-5.1); Protein, Total 6.6 g/dL (6.0-8.3); Salicylate Less than 8.0 mg/dL (15.0-30.0); Sodium 139 mmol/L (136-145)
[2018-05-17 05:44] LABS: CKMB 3.2 ng/mL (0-6.6); Troponin I Less than 0.010 ng/mL (< 0.028)
[2018-05-17 05:50] LABS: #Eosinphils 0.1 thou/uL (0.0-0.7); #Lymphocytes 0.7 thou/uL (1.20-3.40); #Monocytes 0.2 thou/uL (0.11-0.59); #Neutrophils 1.6 thou/uL (1.40-6.50); %Basophils 1.1 % (0.0-1.0); %Eosinophils 3.5 % (0.0-10.0); %Lymphocytes 26.3 % (21.0-51.0); %Monocytes 8.6 % (0.0-10.0); %Neutrophils 60.5 % (42.0-75.0); Hemoglobin 14.1 g/dL (14.0-18.0); Mean Corpuscular HGB CONC 32.7 g/dL (32.0-36.0); Mean Corpuscular Hemoglobin 32.8 pg (27.0-31.0); PLT Morphology Comment Appears Decreased; Platelet Count 51 thou/uL (130-400); RBC Morphology Normal; White Blood Cell (WBC) Count 2.7 thou/uL (4.8-10.8)
[2018-05-17] MEDS ORDERED: Metoclopramide HCl 10 MG/2 ML VIAL ONE (06:50)
[2018-05-17 08:15] VITALS: BMI 43.4
[2018-05-17] MEDS ORDERED: HumaLOG 300 UNITS/3 ML VIAL SC PRN ×2 (08:26→08:32)
[2018-05-17] MEDS ORDERED: Dextrose 50% Abboject 50 ML SYRINGE IVP PRN (08:32)
[2018-05-17] MEDS ORDERED: Dextrose 5% in Water 1,000 ML IV PRN (08:32)
[2018-05-17] MEDS ORDERED: Non-Formulary Item 1 EACH (Insulin Detemir 100 Units/Ml [Levemir] 25 UNITS) SC SCH (09:00)
--- NOTE | 2018-05-17 09:02 | CT ---
PRELIMINARY REPORT/[facility]/EMERGENTY AFTER-HOURS PROCEDURE CT Head Without Intravenous Contrast CLINICAL HISTORY: 52 years old, male; Signs and symptoms; Altered mental status/memory loss; Patient HX: , M52 reports to ed C/O AMS. Pt was dx with cirrhosis in february. Pt family reports hasn't been taking lactulose as d irected because he felt he was fine and doesn't need it. Historian reports anger outbursts with high and lows. Historian reports yesterday was a low. Historian reports slow speech started yesterday . Pcp is dr. Acosta. TECHNIQUE: Axial computed tomography images of the head/brain without intravenous contrast. COMPARISON: No relevant prior studies available. FINDINGS: Brain: Normal. No hemorrhage. No significant white matter disease. No edema. Ventricles: Normal. No ventriculomegaly. Bones/joints: Normal. No acute fracture. Soft tissues: There is a nonspecific around 12 mm hypodensity in the posterior soft tissues of the ne ck possibly representing an inflamed sebaceous gland. Sinuses: Unremarkable as visualized. No acute sinusitis. Mastoid air cells: Unremarkable as visualized. No mastoid effusion. IMPRESSION: No acute intracranial hemorrhage. Thank you for allowing us to participate in the care of your patient. Dictated and Authenticated by: Alfa Foley MD 05/17/2018 7:18 AM Central Time ([place] & [place]) CT BRAIN WITHOUT CONTRAST: HISTORY: Altered mental status. COMPARISON: None. FINDINGS: There is no acute territorial infarct or hemorrhage. No midline shift or mass effect. IMPRESSION: Findings and compression are concordant with the preliminary report. POS: [facility]
[2018-05-17] MEDS: Torsemide 20 MG TAB PO SCH ×2 (10:08→20:12)
[2018-05-17] MEDS: Spironolactone 25 MG TAB PO SCH ×2 (10:08→20:13)
[2018-05-17] MEDS: Aspirin 81 mg Enteric Coated Tablet PO SCH (10:08)
[2018-05-17] MEDS: HumaLOG 300 UNITS/3 ML VIAL SC PRN ×2 (12:28→17:30)
--- NOTE | 2018-05-17 13:48 | CON ---
DATE OF CONSULTATION: 05/17/2018 REFERRING PHYSICIAN: Dr. Torrey Acosta REASON FOR CONSULTATION: Altered mental status, elevated serum ammonia level indicative of encephalo dionisio. HISTORY OF PRESENT ILLNESS: Mr. Zaid Yanes is a 52-year-old male with a history of liver cirrhosis, portal hypertension. The patient also has had GI bleeding in the past and was seen by Dr Danitza Branch. The most recent admission was in 02/2018 for GI bleeding and underwent an EGD. As per the operative report, he was found to have one single column of varicosities in the distal esopha nataly and esophageal banding. The patient has seen Dr. Michele Branch subsequently on 2 different occas ions. The patient has no history of GI bleeding at the present time. The patient was brought in by the family because of altered mental status and he was agitated and angry. The patient is awake, beth rt, and communicative at this time. He is actually sitting in a chair. He tells me he discontinued the lactulose because it was making him go to the bathroom 20 times a day. Apparently at home he had been taking Lactulose on a regular basis. Normally when he takes lactulose he needs to go to the throom 5-6 times a day. Because of multiple frequent stools, he decided to cut down or stop taking t he lactulose. The patient has had 4 stools since admission to the floor. He is awake, alert and com municative. He is able tell me his doctor's name, his name and also where he lives. He tells me [place] today is Sunday. However, he was unable to tell me the date. The patient does not having history of any GI bleeding. The stools are not black or any melena stool. He has no fever. No abdominal pa in. As mentioned earlier, his ammonia level was 249. Also, his CBC is actually normal with normal h emoglobin and hematocrit. He denies abdominal pain, dysuria, coughing, fever or chills. No other re levant history. ALLERGIES: None. MEDICAL ILLNESSES: 1. Liver cirrhosis due to fatty liver. 2. Obesity. 3. Diabetes. 4. Hypertension. 5. Hyperlipidemia. 6. Esophageal varices, status post banding in 02/2018. 7. He also has encephalopathy and is on lactulose. SURGERIES: Coronary bypass graft, GE banding in January of 2018 and February 2018. SOCIAL HISTORY: The patient is . Does not smoke or drink alcohol. MEDICATION LIST: Reviewed. FAMILY HISTORY: No family history of any chronic liver disease, cancer, etc. REVIEW OF SYSTEMS: CONSTITUTIONAL: No history of fever, no coughing, no weight loss. IMPLEMENT MECHANIC: History of altered mental status and being angry over the last couple of days. No history of s eizure disorder. No chronic headache, no syncope. RESPIRATORY: No history of chronic cough, hemoptysis, dyspnea. CARDIOVASCULAR: No chest pain, no palpitation, no dyspnea, orthopnea or PND. GASTROINTESTINAL: No hematochezia, no melena, no abdominal pain, nausea, vomiting. GENITOURINARY: No dysuria, hematuria or frequent urination. ENDOCRINE/NEURO/PSYCHIATRIC: Unremarkable. PHYSICAL EXAMINATION: GENERAL: The patient is obese, he is awake, alert, oriented to time, place and person. VITAL SIGNS: Temperature 97.8 degrees Fahrenheit, pulse 88, blood pressure 130/72. HEENT: Conjunctivae clear. NECK: Supple. No adenitis or thyromegaly noted. CARDIOVASCULAR: First and second sounds normal. LUNGS: Clear to auscultation. ABDOMEN: Flabby and pendulous. Abdomen soft. The abdomen is nontender. EXTREMITIES: There is a trace edema in legs. IMPLEMENT MECHANIC: He is awake, alert, and oriented to time, place and person. He has mild hepatic flap both hand s. LABORATORY: Today CBC shows WBC 2700, hemoglobin 14.1, hematocrit 43.2, MCV 100, platelet count 51,0 00, polymorphs 60, lymphocytes 23, monocytes 8. Serum chemistries: Sodium is 139, potassium 3.6, ch loride 105, bicarbonate 25, BUN is 12, creatinine 0.83, glucose 337, calcium 9, bilirubin is 2.2, AST 37, ALT 30, alkaline phosphatase is 177. Ammonia of 249, albumin 3.4. CLINICAL IMPRESSION: 1. A 52-year-old male with liver cirrhosis due to fatty liver. He presents with altered m ental status and ammonia level is very high at 249. The patient admits to not taking lactulose as sc heduled. The patient has no sepsis, nausea, any bleeding to cause of encephalopathy. I believe it i s mostly because of lack of inadequate intake of lactose: 2. Obesity. 3. Hypertension. 4. Diabetes. 5. Hyperlipidemia. RECOMMENDATIONS: 1. Lactulose 30 mL every 2-3 hours until he had multiple bowel movements. 2. Repeat ammonia level tomorrow. His blood count is actually stable and he has no history of bleeding. I see no reason to repeat endo scopy at the present time.
[2018-05-17] MEDS: Carvedilol 3.125 MG TAB PO SCH (17:29)
[2018-05-17] MEDS: Ferrous Sulfate 325 MG TAB PO SCH (20:12)
[2018-05-17] MEDS: Insulin Glargine 25 UNITS in Pre-Filled Syringe 1 EACH SC SCH (20:14)
--- NOTE | 2018-05-17 23:37 | HP ---
DATE OF ADMISSION: 05/17/2018 CHIEF COMPLAINT: Confusion. HISTORY OF PRESENT ILLNESS: This is a 52-year-old gentleman with known coronary artery disease statu s post coronary artery bypass graft, type 2 diabetes, liver cirrhosis from nonalcoholic steatohepatit is, history of GI bleed, who presents to the emergency department last night with complaints of incre ased confusion. The patient has a history of hepatic encephalopathy due to his liver cirrhosis. He has been prescribed lactulose take on a daily basis from Gastroenterology. He has had increased sd l movements and due to that he stopped taking his lactulose about 3 or 4 days ago. The states t hat he has been more irritable becoming more confused and on the night presented to the emergency dep artment, he had more and more confusion and difficulty performing activities of daily living. He pre sented to the emergency department, he was not anemic, but found to have elevated ammonia level up to 249. He is now being admitted for evaluation and to restart his lactulose and for GI consultation. PAST MEDICAL HISTORY: Type 2 diabetes, insulin-dependent; hypertension; hyperlipidemia; morbid obesi ty; again history of nonalcoholic steatohepatitis with liver cirrhosis; history of hepatic encephalop athy; history of esophageal varices with gastrointestinal bleed on last admission in 02/2018. PAST SURGICAL HISTORY: Coronary artery bypass graft in 2010; EGD in 2010, 2016, 2018; colonoscopy in 2018. MEDICATIONS: Include Lantus 20 units twice a day, Lasix 20 mg b.i.d., spironolactone 25 mg daily, la ctulose which he recently discontinued. ALLERGIES: None known. FAMILY HISTORY: Father with type 2 diabetes. Mother with cancer and hypertension. SOCIAL HISTORY: . No smoking, no alcohol. He works in construction. REVIEW OF SYSTEMS: As per the history of present illness. General: He denies any recent fevers, ch ills, or recent illness. HEENT: Denies headache, visual, or hearing changes. Cardiac: Denies ches t pain, shortness of breath, or palpitations. Pulmonary: Denies cough or hemoptysis. Gastrointesti nal: Recent GI bleed, no abdominal pain. Denies melena, hematochezia. Genitourinary: No history o f urinary tract infections. Neurologic: Positive for confusion, positive for increased weakness. N o syncope, no dizziness. PHYSICAL EXAMINATION: VITAL SIGNS: Temperature 97.7, pulse is 78, respirations 18, blood pressure 138/76, pulse ox is 98% on room air. GENERAL: He is awake and alert. Speech is clear but slow and deliberate. He is confused during the conversation. Mucosa is moist. NECK: Supple. HEART: Regular rate and rhythm with 2/6 systolic ejection murmur. LUNGS: Clear bilaterally. ABDOMEN: Morbidly obese, soft, nontender, nondistended. EXTREMITIES: With bilateral edema. Weight today is 312 pounds. SKIN: Anicteric. Mucosa is moist. NEUROLOGIC: Cranial nerves II-XII are intact. LABORATORY DATA: White blood cell count 2700, hemoglobin and hematocrit 14.1 and 43.2, platelets of 51. Sodium 139, potassium 3.6, chloride 105, CO2 of 25, BUN and creatinine 12 and 0.83 with a GFR gr eater than 90. Serum glucose was 337, calcium of 9.0, AST and ALT of 37 and 30, alkaline phosphatase of 177. Ammonia level was elevated at 249. Cardiac enzymes are negative. CT of the brain showed n o active disease. ASSESSMENT: This is a 52-year-old gentleman with multiple medical problems and known liver cirrhosis with history of encephalopathy in the past as well as esophageal varices, now with hepatic encephalo dionisio secondary to noncompliance with his medication. PLAN: 1. We will restart his lactulose as per his plan. We will consult GI for evaluation. We will reche ck ammonia level in the morning and hopefully, will be back down close to his normal state of mentati on. 2. Type 2 diabetes. We will continue his medications and insulin sliding scale. 3. Hypertension, stable. 4. History of gastrointestinal bleed. We will not start anticoagulation at this time. 5. Disposition: Hopefully home in the morning.
[2018-05-18 04:20] LABS: ALT (SGPT) 27 U/L (8-55); AST (SGOT) 36 U/L (5-34); Alkaline Phosphatase 118 U/L (40-150); Anion Gap 12 mmol/L (10-20); BUN (Urea Nitrogen) 11 mg/dL (8.4-25.7); Bilirubin, Total 2.3 mg/dL (0.2-1.2); Calc. Creatinine Clearance 234 mL/min (70-130); Calcium 8.8 mg/dL (7.8-10.44); Carbon Dioxide 25 mmol/L (22-29); Chloride 106 mmol/L (98-107); Estimated GFR-MDRD Greater than 90; Globulin 3.1 g/dL (2.4-3.5); Glucose 209 mg/dL (70-105); Potassium 3.1 mmol/L (3.5-5.1); Protein, Total 6.1 g/dL (6.0-8.3); Sodium 140 mmol/L (136-145)
[2018-05-18 04:41] LABS: INR-International Normal Ratio 1.4; PTT 32.6 SEC (22.9-36.1); Prothrombin Time 17.2 SEC (12.0-14.7)
[2018-05-18 04:42] LABS: #Eosinphils 0.1 thou/uL (0.0-0.7); #Lymphocytes 0.8 thou/uL (1.20-3.40); #Monocytes 0.2 thou/uL (0.11-0.59); #Neutrophils 1.1 thou/uL (1.40-6.50); %Basophils 0.7 % (0.0-1.0); %Eosinophils 3.5 % (0.0-10.0); %Lymphocytes 37.1 % (21.0-51.0); %Monocytes 10.8 % (0.0-10.0); %Neutrophils 47.9 % (42.0-75.0); Hemoglobin 12.9 g/dL (14.0-18.0); Mean Corpuscular Hemoglobin 32.9 pg (27.0-31.0); Mean Corpuscular Volume 99.9 fL (78.0-98.0); Platelet Count 49 thou/uL (130-400); RBC Distribution Width 13.9 % (11.5-14.5); Red Blood Cell (RBC) Count 3.91 mill/uL (4.70-6.10); White Blood Cell (WBC) Count 2.2 thou/uL (4.8-10.8)
[2018-05-18 05:07] VITALS: TEMP 98.4
[2018-05-18] MEDS: HumaLOG 300 UNITS/3 ML VIAL SC PRN (06:41)
[2018-05-18] MEDS ORDERED: Potassium Chloride 20 MEQ TAB PO SCH (08:00)
[2018-05-18 08:17] VITALS: BP 110/65
[2018-05-18] MEDS: Ferrous Sulfate 325 MG TAB PO SCH (08:47)
[2018-05-18] MEDS: Spironolactone 25 MG TAB PO SCH (08:47)
[2018-05-18] MEDS: Torsemide 20 MG TAB PO SCH (08:48)
[2018-05-18] MEDS: Aspirin 81 mg Enteric Coated Tablet PO SCH (08:48)
[2018-05-18] MEDS: Carvedilol 3.125 MG TAB PO SCH (08:49)
[2018-05-18] MEDS: Insulin Glargine 25 UNITS in Pre-Filled Syringe 1 EACH SC SCH (08:49)
--- NOTE | 2018-05-18 21:29 | DIS ---
DATE OF ADMISSION: 05/17/2018 DATE OF DISCHARGE: 05/18/2018 DISCHARGE DIAGNOSES: 1. Hepatic encephalopathy. 2. Liver cirrhosis. 3. Esophageal varices. 4. Diabetes. 5. Hypertension. 6. History of gastrointestinal bleed. DISCHARGE MEDICATIONS: Lantus 25 units b.i.d., Lasix 20 p.o. b.i.d., spironolactone 25 p.o. b.i.d., lactulose 45 mL p.o. t.i.d., aspirin 81 mg q. day, Coreg 3.25 p.o. b.i.d., Prilosec 10 p.o. q. day. BRIEF HISTORY: This is a 52-year-old white male with history of coronary artery disease, status post bypass grafting; diabetes; liver cirrhosis; nonalcoholic steatohepatitis; and GI bleed; who presents with increased altered mental status. The patient was recently hospitalized with hepatic encephalop athy due to liver cirrhosis. He was given lactulose and did well. However, he thought he was told t o stop the lactulose and his altered mental status returned. HOSPITAL COURSE: The lactulose was resumed at the time of admission. The patient's bowel movements resumed. This morning, he is completely lucid. He is ready to go home. Actually, he is catching a flight at 4:00 p.m. today to [place], [place] to his family reunion. I did discuss with him the impo rtance of taking lactulose on a regular basis. If he does not take that, his problems will return. He understands this now. LABORATORY DATA: Includes white count 2.2, H&H 12.9 and 39.0, platelet of 49. Electrolytes: Sodium 140, potassium 3.1, chloride 106, creatinine 0.73, BUN 11, blood sugars are 243, 209, 176. Ammonia level was 249, down to 48.
== END 2018-05-18 09:40 | disposition home or self-care (01) | DRG 442 ==
LOC: ERS 04:21 → IMCU/EMU 08:08
PROVIDERS: ADMIT Family Medicine; ATTEND Family Medicine
DX: K72.90 Hepatic failure, unspecified without coma (principal); I85.10 Secondary esophageal varices without bleeding; Z68.41 Body mass index [BMI] 40.0-44.9, adult; K74.60 Unspecified cirrhosis of liver; I10 Essential (primary) hypertension; E11.9 Type 2 diabetes mellitus without complications; E78.5 Hyperlipidemia, unspecified; Z79.4 Long term (current) use of insulin; Z95.1 Presence of aortocoronary bypass graft; Z87.19 Personal history of other diseases of the digestive system
CPT/HCPCS: 36415; 36416; 70450; 80053; 80307; 82140; 82553; 84484; 85025; 85610; 85730; 93005; 96360; J2765

== ENCOUNTER 2018-07-02 07:21 | Day surgery (SDC) | payer OTHER ==
[2018-07-01 12:42] VITALS: BMI 44.4
[2018-07-02] MEDS ORDERED: Lidocaine 1% PF 5 ML VIAL ONE (10:20)
[2018-07-02] MEDS ORDERED: PROPOFOL 200 MG/20 ML VIAL ONE (10:20)
--- NOTE | 2018-07-02 12:36 | OP ---
DATE OF PROCEDURE: 07/02/2018 PROCEDURE: Esophagogastroduodenoscopy. PREOPERATIVE DIAGNOSES: Surveillance for esophageal varices status post banding in the past and hist ory of variceal bleed. PROCEDURE IN DETAIL: Informed consent was obtained from the patient. He was sedated with total intr avenous anesthesia. The bite block was placed and the endoscope was advanced easily to the second po rtion of the duodenum and retroflexion was performed in the stomach. The esophagus had a slight sing le grade I varix, which was small in the distal esophagus. The esophagus was otherwise normal withou t significant varices. With previous procedures, he had a single very large grade 4 varix, which was banded multiple times in the past. Severe portal hypertensive gastropathy without gastric varices. Few small benign appearing antral polyps were left alone. Otherwise normal esophagogastroduodenoscopy. RECOMMENDATIONS: 1. Repeat EGD in 6 months. 2. Follow up in GI Clinic.
== END 2018-07-02 11:27 | disposition home or self-care (01) ==
LOC: SDC 07:21
PROVIDERS: ATTEND Internal Medicine Gastroenterology
PROC: 0DJ08ZZ Inspection of Upper Intestinal Tract, Via Natural or Artificial Opening Endoscopic (ICD-10-PCS; principal; 2018-07-02)
DX: Z09 Encounter for follow-up examination after completed treatment for conditions other than malignant neoplasm (principal); K76.6 Portal hypertension; K31.89 Other diseases of stomach and duodenum; K31.7 Polyp of stomach and duodenum; K72.90 Hepatic failure, unspecified without coma; K74.60 Unspecified cirrhosis of liver; Z79.4 Long term (current) use of insulin; Z79.899 Other long term (current) drug therapy; Z98.890 Other specified postprocedural states
CPT/HCPCS: 36416; J2001; J2704

== ENCOUNTER 2018-07-25 14:29 | Outpatient (CLI) | payer OTHER ==
--- NOTE | 2018-07-25 17:21 | MRI ---
MRI OF ABDOMEN WITH AND WITHOUT CONTRAST: 07/25/18 HISTORY: Cirrhosis of liver. COMPARISON: MRI 01/07/18. TECHNIQUE: Multiplanar and multisequence MRI of the abdomen performed prior to and after the intravenous adminis tration of contrast. The examination is limited due to body habitus as well as the fact that the joseph rial phase was delayed as this is actually a portal venous phase. Therefore, the evaluation for an ar terial enhancing mass, one of the most important indication for metastatic carcinoma, is limited. The spleen is markedly enlarged measuring approximately 20 cm. Portal vein is patent although dilated . There is moderate perisplenic varices as well as perihepatic and periesophageal varices. There are mildly enlarged juhi hepatis lymph nodes. There is moderate regenerative nodules. No definite mass washout. Severe cirrhosis. There are collaterals from the left portal vein to the umbilical vein. No hydronephrosis. No definite abnormal renal mass. The marrow signal appears to be unremarkable. There is extensive submucosal edema throughout the large and small bowel. IMPRESSION: 1. Limited examination for hepatocellular carcinoma. Innumerable regenerative nodules as well as cirrhosis without definite evidence of hepatocellular carcinoma. 2. Severe splenomegaly with perisplenic and periesophageal and perigastric varices. 3. Congestive changes throughout the large and small bowel. 4. Likely reactive juhi hepatis lymph nodes. A followup examination in six months to a year is recommended. CT exam may be more beneficial in this patient given the motion artifact. POS: JESUS
== END 2018-07-25 14:30 | disposition home or self-care (01) ==
LOC: SCSMRI 14:29
PROVIDERS: ATTEND Internal Medicine Gastroenterology
DX: K74.60 Unspecified cirrhosis of liver (principal); C22.0 Liver cell carcinoma; R16.1 Splenomegaly, not elsewhere classified; I86.4 Gastric varices; I85.00 Esophageal varices without bleeding; K76.9 Liver disease, unspecified
CPT/HCPCS: 74183

== ENCOUNTER 2019-02-17 07:37 | Outpatient (CLI) | payer OTHER ==
--- NOTE | 2019-02-17 12:19 | MRI ---
MRI ABDOMEN WITH AND WITHOUT IV CONTRAST: HISTORY: Unspecified cirrhosis of the liver. COMPARISON: 07/25/2018 FINDINGS: Splenomegaly is again seen, measuring approximately 20 cm. Changes of cirrhosis of the liver are red emonstrated. No focal enhancing mass is seen to suggest hepatocellular carcinoma. Enumerable regene rative nodules are again noted. Perisplenic, periesophageal, and perigastric varices are seen. Prob able reactive portal hepatic lymph nodes are redemonstrated. Collaterals from the left portal vein t o the umbilical vein are again seen. A small amount of fluid is seen in the upper abdomen. Gall blad michelle, adrenals, pancreas and kidneys are stable. IMPRESSION: Stable examination. No evidence of hepatocellular carcinoma. POS: C
[2019-02-17] MEDS ORDERED: Gadobenate Dimeglumine 529 MG/1 ML (20ML VIAL) ONE (17:26)
== END 2019-02-17 07:38 | disposition home or self-care (01) ==
LOC: MRI 07:37
PROVIDERS: ATTEND Family Medicine
DX: K74.60 Unspecified cirrhosis of liver (principal)
CPT/HCPCS: 74183; A9577

== ENCOUNTER 2019-03-19 17:16 | Emergency (ER) | payer OTHER ==
[2019-03-19] MEDS ORDERED: Ondansetron PF 4 MG/2 ML Vial ONE (17:52)
[2019-03-19 18:14] LABS: #Lymphocytes 0.6 thou/uL (1.20-3.40); #Monocytes 0.2 thou/uL (0.11-0.59); #Neutrophils 2.4 thou/uL (1.40-6.50); %Lymphocytes 19.4 % (21.0-51.0); %Monocytes 4.7 % (0.0-10.0); Hemoglobin 16.2 g/dL (14.0-18.0); Mean Corpuscular Hemoglobin 32.7 pg (27.0-31.0); Mean Platelet Volume 11.8 fL (7.4-10.4); Platelet Count 52 thou/uL (130-400); Red Blood Cell (RBC) Count 4.94 mill/uL (4.70-6.10); White Blood Cell (WBC) Count 3.2 thou/uL (4.8-10.8)
[2019-03-19 18:23] LABS: Platelet Morphology Comment Appears Decreased; RBC Morphology Normal
--- NOTE | 2019-03-19 18:26 | RAD ---
KUB: 03/19/2019 COMPARISON: None HISTORY: Vomiting FINDINGS: Supine imaging limits assessment for free intraperitoneal air and small bowel obstruction. Incompletely imaged midline sternotomy wires are present. No gas-filled dilated bowel noted in. No abnormal calcifications are appreciated. IMPRESSION: Grossly unremarkable KUB.
--- NOTE | 2019-03-19 18:28 | RAD ---
Frontal radiograph chest: 03/19/2019 COMPARISON: 03/12/2018 HISTORY: Nausea and vomiting FINDINGS: Stable prominence of the cardiac silhouette. Stable midline sternotomy wires. No pneumothor ax, pleural fluid, focal consolidation, or alveolar edema. Stable elevation of right hemidiaphragm. IMPRESSION: Stable appearance of the chest-no acute findings.
[2019-03-19 19:05] LABS: ALT (SGPT) 54 U/L (8-55); AST (SGOT) 69 U/L (5-34); Albumin 3.6 g/dL (3.5-5.0); Alkaline Phosphatase 314 U/L (40-150); Anion Gap 14 mmol/L (10-20); BUN (Urea Nitrogen) 12 mg/dL (8.4-25.7); Bilirubin, Total 2.9 mg/dL (0.2-1.2); CK (CPK) 221 U/L (30-200); Calc. Creatinine Clearance 0 mL/min (70-130); Calcium 9.2 mg/dL (7.8-10.44); Carbon Dioxide 23 mmol/L (22-29); Chloride 105 mmol/L (98-107); Estimated GFR-MDRD Greater than 90; Globulin 4.1 g/dL (2.4-3.5); Glucose 288 mg/dL (70-105); Lipase 27 U/L (8-78); Potassium 4.2 mmol/L (3.5-5.1); Protein, Total 7.7 g/dL (6.0-8.3); Sodium 138 mmol/L (136-145)
== END 2019-03-19 19:36 | disposition home or self-care (01) ==
LOC: ERS 17:16
DX: K74.60 Unspecified cirrhosis of liver (principal); E86.0 Dehydration; E72.20 Disorder of urea cycle metabolism, unspecified; I10 Essential (primary) hypertension; E11.9 Type 2 diabetes mellitus without complications
CPT/HCPCS: 71045; 74018; 80053; 82140; 82550; 83690; 83880; 84484; 85025; 93005; 96360; 96374; J2405

== ENCOUNTER 2019-08-07 07:13 | Day surgery (SDC) | payer OTHER ==
[2019-07-09 09:04] VITALS: BMI 45.4
--- NOTE | 2019-08-07 16:17 | OP ---
DATE OF PROCEDURE: 08/07/2019 PROCEDURE PERFORMED: Esophagogastroduodenoscopy. PREOPERATIVE DIAGNOSES: Esophageal varices and cirrhosis of the liver. DESCRIPTION OF PROCEDURE: Informed consent was obtained from the patient. He was sedated with total intravenous anesthesia. The bite block was placed and the endoscope was advanced easily to the second portion of the duodenum and retroflexion was performed in the stomach. The esophagus had grade 1 esophageal varices, four columns without red signs. These were left alone. There was an irregular Z-line. The stomach was normal including retroflexed views. The pylorus and first and second portions of the duodenum were normal. IMPRESSION: 1. Grade 1 small varices without red signs. 2. Irregular Z-line. 3. Otherwise normal esophagogastroduodenoscopy. RECOMMENDATIONS: 1. Continue carvedilol. 2. Repeat EGD in 1 year for varices surveillance. Job ID: [id number]
== END 2019-08-07 10:23 | disposition home or self-care (01) ==
LOC: SDC 07:13
PROVIDERS: ATTEND Internal Medicine Gastroenterology
PROC: 0DJ08ZZ Inspection of Upper Intestinal Tract, Via Natural or Artificial Opening Endoscopic (ICD-10-PCS; principal; 2019-08-07)
DX: K74.60 Unspecified cirrhosis of liver (principal); I85.10 Secondary esophageal varices without bleeding; I10 Essential (primary) hypertension; E11.9 Type 2 diabetes mellitus without complications
CPT/HCPCS: 36416

== ENCOUNTER 2020-06-08 07:22 | Outpatient (CLI) | payer OTHER ==
--- NOTE | 2020-06-08 09:28 | CT ---
CT ABDOMEN WITH AND WITHOUT IV CONTRAST: Date: 06/08/2020 HISTORY: Cirrhosis of liver. FINDINGS: Correlation is made with the MRI of 02/17/2019. The lung bases are clear. Splenomegaly is again seen, measuring about 19.5 cm. Changes of cirrhosis of the liver are noted with out evidence of enhancing mass to suggest hepatocellular carcinoma. A tiny calcified granuloma is see n in the posterior segment of the right lobe of the liver. There are calcified gallstones. There is r ecanalization of the umbilical vein. Collaterals from the left portal vein through the umbilical vein are again seen. There are perisplenic, periesophageal, and perigastric varices. Reactive portal hepa tic lymph nodes are present. There is a moderate amount of free fluid consistent with ascites in the abdomen. The pancreas, adrenal glands, and kidneys are normal. There are vascular calcifications without evide nce of aneurysmal dilatation of the abdominal aorta. There are degenerative changes in the spine. The small bowel loops are not abnormally dilated. There is suggestion of a small bowel loop containin g hernia in the right lower anterior abdominal wall. The other possibility is that these could repres ent varices. IMPRESSION: 1. Cirrhosis of the liver, splenomegaly, ascites, and portal hypertension without evidence of hepato cellular carcinoma. 2. Cholelithiasis. POS: JESUSDI
[2020-06-08] MEDS ORDERED: Iopamidol-370 76% 500 ML 1 ML ONE (16:21)
== END 2020-06-08 07:23 | disposition home or self-care (01) ==
LOC: BICCT 07:22
PROVIDERS: ATTEND Internal Medicine
DX: K74.60 Unspecified cirrhosis of liver (principal); K72.90 Hepatic failure, unspecified without coma; R60.0 Localized edema; R63.5 Abnormal weight gain; K80.20 Calculus of gallbladder without cholecystitis without obstruction; R16.1 Splenomegaly, not elsewhere classified
CPT/HCPCS: 74170; Q9967

== ENCOUNTER 2020-06-22 05:23 | Inpatient (IN) | payer OTHER ==
[2020-06-22] MEDS ORDERED: Ondansetron PF 4 MG/2 ML Vial ONE (05:58)
[2020-06-22 06:26] LABS: Hemoglobin 13.1 g/dL (14.0-18.0); Mean Corpuscular HGB CONC 32.2 g/dL (32.0-36.0); Mean Corpuscular Hemoglobin 33.6 pg (27.0-31.0); Mean Platelet Volume 10.9 fL (7.4-10.4); Platelet Count 54 thou/uL (130-400); RBC Distribution Width 14.1 % (11.5-14.5); Red Blood Cell (RBC) Count 3.91 mill/uL (4.70-6.10); White Blood Cell (WBC) Count 8.3 thou/uL (4.8-10.8)
[2020-06-22 06:32] LABS: Band 20 % (5-11); Lymphocytes 2 % (21-51); MDiff Complete? YES; Monocytes 2 % (0-10); Neutrophil 76 % (42-75); Platelet Morphology Comment Appears Decreased
[2020-06-22] MEDS ORDERED: Cefepime 2 GM VIAL ONE (06:51)
[2020-06-22 07:05] LABS: ALT (SGPT) 34 U/L (8-55); AST (SGOT) 62 U/L (5-34); Albumin 2.7 g/dL (3.5-5.0); Alkaline Phosphatase 172 U/L (40-110); Anion Gap 17 mmol/L (10-20); BUN (Urea Nitrogen) 15 mg/dL (8.4-25.7); Bilirubin, Total 4.6 mg/dL (0.2-1.2); Calc. Creatinine Clearance 0 mL/min (70-130); Calcium 8.1 mg/dL (7.8-10.44); Carbon Dioxide 20 mmol/L (22-29); Chloride 102 mmol/L (98-107); Estimated GFR-MDRD Greater than 90; Globulin 4.5 g/dL (2.4-3.5); Glucose 263 mg/dL (70-105); Potassium 4.2 mmol/L (3.5-5.1); Protein, Total 7.2 g/dL (6.0-8.3); Sodium 135 mmol/L (136-145)
[2020-06-22] MEDS ORDERED: Vancomycin 1 GM/200 ML BAG ONE (07:18)
--- NOTE | 2020-06-22 07:39 | RAD ---
EXAM: Single view of the chest HISTORY: Cough and confusion COMPARISON: 03/19/2019 FINDINGS: Single view of the chest shows an enlarged but stable cardiomediastinal silhouette. The pa tient is status post sternotomy. There is no evidence of consolidation, mass, or pleural effusion. The bones are unremarkable IMPRESSION: No evidence of acute cardiopulmonary disease
[2020-06-22] MEDS ORDERED: Furosemide 20 MG TAB PO SCH (08:30)
[2020-06-22] MEDS ORDERED: Spironolactone 100 MG TAB PO SCH (08:30)
[2020-06-22 08:36] LABS: SARS-CoV-2 NAA Rapid Test Not Detected (NotDetected)
[2020-06-22] MEDS ORDERED: Dextrose 5% in Water 1,000 ML IV PRN (08:42)
[2020-06-22] MEDS ORDERED: Dextrose 50% Abboject 50 ML SYRINGE SLOW IVP PRN (08:42)
[2020-06-22] MEDS ORDERED: cefTRIAXone\\ROCEPHIN 1 GM in Sodium Chloride 0.9% 100 ML IVPB SCH (09:00)
[2020-06-22] MEDS ORDERED: Non-Formulary Item 1 EACH (Insulin Detemir 100 Units/Ml [Levemir] 30 UNITS) SC SCH (09:00)
[2020-06-22 09:19] LABS: Lactic Acid 2.1 mmol/L (0.5-2.2)
--- NOTE | 2020-06-22 10:06 | HP ---
CHIEF COMPLAINT: "I have been disoriented." HISTORY OF PRESENT ILLNESS: The patient is a 54-year-old male with history of coronary artery disease, diabetes, hypertension, and nonalcoholic liver cirrhosis, who presented to the hospital for being disoriented. The patient was noted to be confused by his over the last 24 hours. He also reported fevers and chills. He denies any sick contacts. The patient stated that he has not been taking his lactulose due to diarrhea. The patient also complained of abdominal distention. He stated that he has been compliant with his diuretics. In the ER, the patient was found to be febrile and his blood work revealed lactic acidosis. We were asked to evaluate this patient for further management. PAST MEDICAL HISTORY: As noted above. PAST SURGICAL HISTORY: CABG and esophageal diverticulum surgery. SOCIAL HISTORY: The patient denies alcohol use, illicit drug use, or smoking. ALLERGIES: THE PATIENT HAS NO KNOWN ALLERGIES. REVIEW OF SYSTEMS: Negative except as noted in HPI. PHYSICAL EXAMINATION: GENERAL: The patient is alert and oriented, but sometimes it is slow to respond. HEENT: His head is normocephalic and atraumatic. NECK: Supple. No JVD is noted. CHEST: Auscultation revealed regular rate and rhythm with no murmurs, rubs, or gallops. Lung barnett are clear to auscultation bilaterally. ABDOMEN: Distended and dull to palpation. EXTREMITIES: Shows some edema. NEUROLOGICAL: Appears to be intact. ASSESSMENT: 1. Encephalopathy due to liver cirrhosis versus an infectious etiology. 2. Lactic acidosis. 3. Hypertension. 4. Hyperlipidemia. 5. Coronary artery disease. PLAN: 1. The patient will be placed on medical floor. 2. We will screen him for a source of infection. Rapid COVID test has been obtained in the ER, we will check urinalysis and obtain an ultrasound-guided paracentesis with fluid analysis. I will cover him empirically with ceftriaxone. The patient does have bandemia. 3. Start lactulose and rifaximin for suspected hepatic encephalopathy. Start diuretics for ascites with volume overload. 4. I will avoid anticoagulation for DVT prophylaxis given his history of hematemesis and liver cirrhosis. We will apply SCDs for mechanical prophylaxis. Job ID: [id number]
[2020-06-22 11:16] LABS: INR-International Normal Ratio 1.7; PTT 32.8 sec (22.9-36.1); Prothrombin Time 19.6 sec (12.0-14.7)
[2020-06-22 13:01] VITALS: BMI 51.0
[2020-06-22] MEDS ORDERED: Lidocaine 1% PF 5 ML VIAL ONE (15:09)
[2020-06-22] MEDS ORDERED: Sodium Bicarbonate 2.5 MEQ/5 ML VIAL ONE (15:09)
[2020-06-22] MEDS: Insulin Glargine 30 UNITS in Pre-Filled Syringe 1 EACH SC SCH ×2 (16:05→20:07)
[2020-06-22] MEDS: Rifaximin 550 MG TAB PO SCH ×2 (16:05→20:08)
[2020-06-22 17:20] LABS: RBC Count-Automated (BF) 571 /cu.mm; WBC/Nucleated-Auto (BF) 137 uL
[2020-06-22 17:27] LABS: BF Color Yellow; Body Fluid Source Ascites Body Fluid; Clarity Hazy (Clear); Tube # EDTA
[2020-06-22 17:43] LABS: BF Segmented Neutrophils 6 %; Cell Count Non Hematic 33 %; Lymphocytes 61 %
[2020-06-22] MEDS: Carvedilol 3.125 MG TAB PO SCH (18:45)
--- NOTE | 2020-06-22 19:06 | ULT ---
ULTRASOUND GUIDED PARACENTESIS: 06/22/20 INDICATION: History of ascites. TECHNIQUE: Informed consent was obtained. Preprocedure ultrasound demonstrated moderate amount of ascites. Site overlying left lower quadrant w as marked. Site was prepped and draped in the usual sterile fashion. Buffered 1% lidocaine was admini stered to the overlying subcutaneous tissues. Under ultrasound guidance, a 5 Uzbek xzoopseh catheter w as guided down through the abdominal wall of the left lower quadrant into the large fluid collection into the left lower quadrant. 3400 mL of normal appearing peritoneal fluid was then removed. The shannan ent tolerated the procedure without difficulty. IMPRESSION: Successful ultrasound guided paracentesis with removal of 3400 mL of normal appearing peritoneal flui d. POS: BH
[2020-06-22 19:42] LABS: Bacteria/HPF None Seen HPF (None Seen); Bilirubin 1+ (Negative); Blood, Urine 1+ (Negative); Clarity Clear (Clear); Glucose, Urine (Dipstick) 70 mg/dL (Negative); Ketone, Urine Negative (Negative); Leukocyte Negative Leu/uL (Negative); Mucous/LPF 1+ LPF (<2+); Nitrite Negative (Negative); Protein, Urine (Dipstick) 30 mg/dL (Neg-Trace); Specific Gravity, Urine 1.026 (1.002-1.036); Squamous Epithelial 0-3 HPF (0-3); WBC/HPF 0-3 HPF (0-3); pH, Urine 5.5 (5.0-9.0)
[2020-06-22 19:43] LABS: Urine Culture Reflex No No
[2020-06-22] MEDS ORDERED: HumaLOG 300 UNITS/3 ML VIAL SC PRN (20:31)
[2020-06-22] MEDS ORDERED: Non-Formulary Item 1 EACH (Sertraline Hcl [Sertraline Hcl] 50 MG) PO SCH (21:00)
[2020-06-23] MEDS ORDERED: Furosemide 40 MG TAB PO SCH ×2 (07:30→10:45)
[2020-06-23] MEDS ORDERED: Spironolactone 100 MG TAB PO SCH ×2 (08:00→10:45)
[2020-06-23] MEDS: Rifaximin 550 MG TAB PO SCH ×2 (08:39→20:00)
[2020-06-23] MEDS: Insulin Glargine 30 UNITS in Pre-Filled Syringe 1 EACH SC SCH ×2 (08:40→21:55)
[2020-06-23] MEDS: Carvedilol 3.125 MG TAB PO SCH (08:51)
[2020-06-23] MEDS ORDERED: Albumin 25% 25 GM/100 ML BOT IVPB SCH (10:35)
--- NOTE | 2020-06-23 10:52 | PDOC.HOSPP ---
- Subjective Encounter Date: 06/23/20 Subjective: Alert and oriented today. - Objective Vital Signs & Weight: Vital Signs (12 hours) Temp Pulse Resp BP Pulse Ox 06/23/20 07:38 98.1 F 75 22 H 96/58 L 99 06/23/20 04:00 98.0 F 74 20 99/64 95 06/23/20 00:00 98.2 F 77 20 98/60 94 L Weight Weight 366 lb 4.8 oz Result Diagrams: 06/22/20 05:43 06/22/20 05:43 Additional Labs: Accuchecks 06/23/20 06/22/20 06/22/20 05:00 19:47 15:49 POC Glucose 205 H 336 H 229 H Hospitalist ROS - Medication Medications: Active Medications Generic Name Dose Route Start Last Admin Trade Name Freq PRN Reason Stop Dose Admin Insulin Glargine 30 units/ 0.3 mls @ 0 mls/hr 06/22/20 09:00 06/23/20 08:40 Miscellaneous Medication SC 0.3 mls BID JM Administration Insulin Human Lispro 0 units 06/22/20 20:31 06/22/20 21:36 Humalog SC 4 unit .BEDTIME SLIDING SC PRN Administration Bedtime Correctional Scale Pantoprazole Sodium 40 mg 06/22/20 09:00 06/23/20 08:40 Protonix PO 40 mg DAILY JM Administration Rifaximin 550 mg 06/22/20 09:00 06/23/20 08:39 Xifaxan PO 550 mg BID JM Administration Sertraline HCl 50 mg 06/22/20 21:00 06/22/20 20:08 Zoloft PO 50 mg HS JM Administration Sodium Chloride 10 ml 06/22/20 09:00 06/22/20 20:08 Flush - Normal Saline IVF 10 ml Q12HR JM Administration - Exam General Appearance: awake alert ENT: normocephalic atraumatic Neck: supple Respiratory: normal chest expansion, no tachypnea Gastrointestinal: soft Neurological: cranial nerve grossly intact, no focal deficits Hosp A/P (1) Hepatic encephalopathy Code(s): K72.90 - HEPATIC FAILURE, UNSPECIFIED WITHOUT COMA Status: Acute (2) Ascites Code(s): R18.8 - OTHER ASCITES Status: Acute (3) Lactic acidosis Code(s): E87.2 - ACIDOSIS Status: Acute (4) Cirrhosis of liver Code(s): K74.60 - UNSPECIFIED CIRRHOSIS OF LIVER Status: Chronic - Plan The patient has mental status has improved since yesterday. He had multiple bowel movements and is tolerating rifaximin and lactulose. Status post removal of 3.5 L of ascitic fluid. Analysis of the fluid did not reveal any infectious properties. His blood pressure was soft this morning. I will administer 25 g of albumin. We held his diuretics today but will resume tomorrow. I changed his beta-blockers to nonselective nadolol due to his history of liver cirrhosis.
[2020-06-23] MEDS ORDERED: cefTRIAXone\\ROCEPHIN 1 GM in Sodium Chloride 0.9% 100 ML IVPB SCH (17:00)
[2020-06-23] MEDS: HumaLOG 300 UNITS/3 ML VIAL SC PRN (17:38)
[2020-06-24] MEDS: Insulin Glargine 30 UNITS in Pre-Filled Syringe 1 EACH SC SCH ×2 (09:04→21:10)
[2020-06-24] MEDS: Rifaximin 550 MG TAB PO SCH ×2 (09:05→21:10)
[2020-06-24] MEDS: Furosemide 40 MG TAB PO SCH (11:27)
[2020-06-24] MEDS: Spironolactone 100 MG TAB PO SCH (11:27)
[2020-06-24] MEDS: Nadolol 40 MG TAB PO SCH (11:27)
[2020-06-24] MEDS: HumaLOG 300 UNITS/3 ML VIAL SC PRN (11:28)
--- NOTE | 2020-06-24 11:46 | PDOC.HOSPP ---
- Subjective Encounter Date: 06/24/20 Subjective: Patient is feeling better. - Objective Vital Signs & Weight: Vital Signs (12 hours) Temp Pulse Resp BP BP Pulse Ox 06/24/20 08:02 70 17 102/63 96 06/24/20 08:00 96 06/24/20 04:32 65 106/63 95 06/24/20 00:00 97.6 F 65 18 94/56 L 94 L Weight Weight 366 lb 4.8 oz Result Diagrams: 06/22/20 05:43 06/22/20 05:43 Additional Labs: Accuchecks 06/24/20 06/24/20 06/23/20 10:43 05:28 19:54 POC Glucose 198 H 142 H 221 H 06/23/20 06/23/20 16:40 11:32 POC Glucose 224 H 234 H Hospitalist ROS - Medication Medications: Active Medications Generic Name Dose Route Start Last Admin Trade Name Freq PRN Reason Stop Dose Admin Furosemide 20 mg 06/24/20 07:30 06/24/20 11:27 Lasix PO 20 mg DAILY-AC JM Administration Insulin Glargine 30 units/ 0.3 mls @ 0 mls/hr 06/22/20 09:00 06/24/20 09:04 Miscellaneous Medication SC 0.3 mls BID JM Administration Insulin Human Lispro 0 units 06/22/20 08:42 06/24/20 11:28 Humalog SC 2 unit .MODERATE SLIDING SC PRN Administration Moderate Correctional Scale Insulin Human Lispro 0 units 06/22/20 20:31 06/22/20 21:36 Humalog SC 4 unit .BEDTIME SLIDING SC PRN Administration Bedtime Correctional Scale Nadolol 20 mg 06/24/20 09:00 06/24/20 11:27 Corgard PO 20 mg DAILY JM Administration Pantoprazole Sodium 40 mg 06/22/20 09:00 06/24/20 09:05 Protonix PO 40 mg DAILY JM Administration Rifaximin 550 mg 06/22/20 09:00 06/24/20 09:05 Xifaxan PO 550 mg BID JM Administration Sertraline HCl 50 mg 06/22/20 21:00 06/23/20 20:00 Zoloft PO 50 mg HS JM Administration Sodium Chloride 10 ml 06/22/20 09:00 06/24/20 09:06 Flush - Normal Saline IVF 10 ml Q12HR JM Administration Spironolactone 50 mg 06/24/20 08:00 06/24/20 11:27 Aldactone PO 50 mg QAM-WM JM Administration - Exam General Appearance: awake alert Neck: supple, no JVD Respiratory: normal chest expansion, no tachypnea Extremities: no cyanosis, no clubbing Neurological: cranial nerve grossly intact, no weakness Hosp A/P (1) Hepatic encephalopathy Code(s): K72.90 - HEPATIC FAILURE, UNSPECIFIED WITHOUT COMA Status: Acute (2) Ascites Code(s): R18.8 - OTHER ASCITES Status: Acute (3) Lactic acidosis Code(s): E87.2 - ACIDOSIS Status: Acute (4) Cirrhosis of liver Code(s): K74.60 - UNSPECIFIED CIRRHOSIS OF LIVER Status: Chronic - Plan 06/23: The patient has mental status has improved since yesterday. He had multiple bowel movements and is tolerating rifaximin and lactulose. Status post removal of 3.5 L of ascitic fluid. Analysis of the fluid did not reveal any infectious properties. His blood pressure was soft this morning. I will administer 25 g of albumin. We held his diuretics today but will resume tomorrow. I changed his beta-blockers to nonselective nadolol due to his history of liver cirrhosis. 06/24: Patient's mental status is back to baseline. We will administer his diuretics and nadolol today and monitor his blood pressure. If his blood pressure appears to be stable with systolic greater than 90, will plan to DC the patient home.
[2020-06-24] MEDS: Amoxicillin/Potassium Clav 875 MG TAB PO SCH (21:09)
[2020-06-25 07:12] VITALS: BP 110/53; TEMP 97.9
[2020-06-25] MEDS: Rifaximin 550 MG TAB PO SCH (08:54)
[2020-06-25] MEDS: Furosemide 40 MG TAB PO SCH (08:54)
[2020-06-25] MEDS: Spironolactone 100 MG TAB PO SCH (08:54)
[2020-06-25] MEDS: Nadolol 40 MG TAB PO SCH (08:54)
[2020-06-25] MEDS: Amoxicillin/Potassium Clav 875 MG TAB PO SCH (08:55)
[2020-06-25] MEDS: Insulin Glargine 30 UNITS in Pre-Filled Syringe 1 EACH SC SCH (09:00)
--- NOTE | 2020-06-25 12:36 | DIS ---
DATE OF ADMISSION: 06/22/2020 DATE OF DISCHARGE: 06/25/2020 DISCHARGE DIAGNOSES: 1. Hepatic encephalopathy. 2. Ascites. 3. Group B Streptococcal bacteremia. 4. Lactic acidosis. 5. Cirrhosis of the liver. DISCHARGE MEDICATIONS: 1. Augmentin 875/125 mg orally twice daily for 6 days. 2. Lactobacillus one tablet orally daily for 7 days. 3. Lactulose 10 g orally t.i.d. as needed for constipation. The patient will take the medicine until he has 3 bowel movements in a day. 4. Aldactone 50 mg orally nightly. 5. Torsemide 20 mg orally twice daily. 6. Sertraline 50 mg orally nightly. 7. Nadolol 20 mg orally daily. 8. Rifaximin 550 mg orally twice daily. 9. Ursodiol 300 mg orally daily. HISTORY OF PRESENT ILLNESS AND HOSPITAL COURSE: The patient is a 54-year-old male with history of coronary artery disease, diabetes, hypertension, and nonalcoholic liver cirrhosis, who presented to the hospital with altered mental status, and reported fevers and chills at home. The patient has not been taking his lactulose at home due to reported multiple bowel movements. He stated that he has been compliant with his diuretics. In the ER, the patient was found to be altered and with significant abdominal distention. He was admitted to the hospital for further evaluation. Initial infection screen was negative for a source of infection in his lungs, urine, or peritoneal space per paracentesis. However, his blood cultures showed growth of Streptococcus agalactiae. It was not clear if this organism was a contamination or a real infection. However, due to presence of bandemia, a course of Augmentin will be given to the patient. The patient underwent therapeutic paracentesis with removal of 3.5 L of fluids, which led to improvement in his abdominal distention. He was also managed with lactulose orally to achieve a goal of 3 bowel movements a day. This has led to improvement in his symptoms and sedation of his encephalopathy. Outpatient followup with PCP in 1 week was recommended. Job ID: [id number]
--- NOTE | 2020-06-27 23:03 | PQF ---
CLINICAL DOCUMENTATION CLARIFICATION FORM: Dear : Michelle Isaac Date / Time: 06/27/20 9521 Please exercise your independent, professional judgment in responding to the clarification form. Clinical indicators are provided on the bottom of this form for your review Please check appropriate box(es) to clarify if the following diagnosis has been ruled in our ruled out: Severe Sepsis with Septic Shock [ > ] Ruled in diagnosis [ ] Continue to treat [ ] Resolved [ ] Ruled out diagnosis [ ] Improving [ ] Cannot rule out diagnosis [ ] Other diagnosis [ ] Unable to determine Physician Signature: Date/Time: For continuity of documentation, please document condition throughout progress notes and discharge summary. Thank You. To be completed by CDI/Coding staff for physician review: Present Clinical Indicators - Signs / Symptoms / Labs Results and Location in Medical Record [X] WBC 8.3, Plt count 54, Neutrophils 76, Band 20 Laboratory Hematology 06/22 [X] Blood culture: Strep B agalactia Group B Microbiology 06/22 [X] SIRS scoring: yes pt did meet at least 2 criteria ED notes p3 06/22 [X] BP 125/56, Pulse 90, Resp 28, Temp 102.0 Vital signs 06/22 [X] AMS, Fever ED notes p9 06/22 [X] Severe sepsis with septic shock ED notes p9 06/22 [X] Encephalopathy due to liver cirrhosis versus infection etiology H&P p1 Dr Hopson [X] Lactic acidosis H&P p1 06/22 Dr Hopson [X] Group B streptococcal bactermia DS p1 06/25 Dr Isaac [X] Initial infection screen was negative for a source of infection DS p1 Dr Isaac [X] Presence of bandemia DS p1 06/25 Dr Isaac Present Risk Factors Results and Location in Medical Record [X] HTN H&P 06/22 Dr Hopson [X] DM H&P 06/22 Dr Hopson [X] CAD H&P 06/22 Dr Hopson [X] Liver cirrhosis H&P 06/22 Dr Hopson Present Treatments Results and Location in Medical Record [X] IV Vancomycin 1 gm JAN 30 [X] IVF NS 1L JAN 30 [X] Lactulose 20 mg oral JAN 30 [X] IV Ceftriaxone 1 gm JAN 30 [X] IV Maxipime 2 gm JAN 30 [X] Blood culture Microbiology 06/22 [X] Transfusion: Platelets Blood bank 06/22 [X] Oxygen 2L Respiratory Panel 06/22 CDS/Quality Facilitator Signature: Emily Evans Phone #: [phone] Date/Time: 06/27/20 3898 This is a permanent part of the Medical Record [facility]
== END 2020-06-25 11:42 | disposition home or self-care (01) | DRG 871 ==
LOC: ERS 05:23 → T4-B 12:36
PROVIDERS: ADMIT Internal Medicine; ATTEND Internal Medicine
PROC: 0W9G3ZZ Drainage of Peritoneal Cavity, Percutaneous Approach (ICD-10-PCS; principal; 2020-06-22)
PROC: 30233R1 Transfusion of Nonautologous Platelets into Peripheral Vein, Percutaneous Approach (ICD-10-PCS; 2020-06-22)
DX: A40.1 Sepsis due to streptococcus, group B (principal); R65.21 Severe sepsis with septic shock; E87.2 Acidosis; R18.8 Other ascites; K72.90 Hepatic failure, unspecified without coma; Z20.828 Contact with and (suspected) exposure to other viral communicable diseases; K74.60 Unspecified cirrhosis of liver; I10 Essential (primary) hypertension; I25.10 Atherosclerotic heart disease of native coronary artery without angina pectoris; E78.5 Hyperlipidemia, unspecified; E11.9 Type 2 diabetes mellitus without complications; Z95.1 Presence of aortocoronary bypass graft; Z79.899 Other long term (current) drug therapy; Z79.4 Long term (current) use of insulin
CPT/HCPCS: 36415; 36416; 36430; 36600; 49083; 71045; 80053; 81001; 82042; 82140; 83605; 84157; 84484; 85025; 85060; 85610; 85730; 86850; 86900; 86901; 87040; 87070; 87077; 87149; 87186; 87205; 89051; 93005; 96365; 96367; 96375; J0692; J0696; J1815; J2405; J3370; J3490; P9035; P9047; U0002

== ENCOUNTER 2020-07-22 07:42 | Day surgery (SDC) | payer OTHER ==
[2020-07-21 12:21] VITALS: BMI 50.2
[2020-07-21 14:28] LABS: #Eosinphils 0.1 thou/uL (0.0-0.7); #Lymphocytes 0.9 thou/uL (1.20-3.40); #Monocytes 0.3 thou/uL (0.11-0.59); %Basophils 1.3 % (0.0-1.0); %Eosinophils 4.4 % (0.0-10.0); %Lymphocytes 27.1 % (21.0-51.0); %Monocytes 8.9 % (0.0-10.0); %Neutrophils 58.3 % (42.0-75.0); Hemoglobin 12.9 g/dL (14.0-18.0); Mean Corpuscular HGB CONC 32.5 g/dL (32.0-36.0); Mean Corpuscular Hemoglobin 33.9 pg (27.0-31.0); Mean Platelet Volume 9.7 fL (7.4-10.4); Platelet Count 53 thou/uL (130-400); RBC Distribution Width 13.9 % (11.5-14.5); White Blood Cell (WBC) Count 3.4 thou/uL (4.8-10.8)
[2020-07-21 14:31] LABS: INR-International Normal Ratio 1.4
[2020-07-21 14:46] LABS: ALT (SGPT) 45 U/L (8-55); AST (SGOT) 73 U/L (5-34); Albumin 2.9 g/dL (3.5-5.0); Alkaline Phosphatase 261 U/L (40-110); Anion Gap 11 mmol/L (10-20); BUN (Urea Nitrogen) 19 mg/dL (8.4-25.7); Bilirubin, Total 3.3 mg/dL (0.2-1.2); Calc. Creatinine Clearance 193 mL/min (70-130); Calcium 8.4 mg/dL (7.8-10.44); Carbon Dioxide 30 mmol/L (22-29); Chloride 98 mmol/L (98-107); Estimated GFR-MDRD 80; Globulin 4.6 g/dL (2.4-3.5); Glucose 273 mg/dL (70-105); Potassium 3.5 mmol/L (3.5-5.1); Protein, Total 7.5 g/dL (6.0-8.3); Sodium 135 mmol/L (136-145)
[2020-07-22] MEDS ORDERED: Sodium Bicarbonate 2.5 MEQ/5 ML VIAL ONE (08:56)
[2020-07-22] MEDS ORDERED: Lidocaine 1% PF 5 ML VIAL ONE (08:57)
[2020-07-22] MEDS ORDERED: Midazolam HCl 2 mg/2 ml Vial ONE (08:57)
[2020-07-22] MEDS ORDERED: Fentanyl 100 MCG/2 ML VIAL ONE (08:58)
[2020-07-22 09:39] VITALS: BP 137/75; TEMP 98.1
--- NOTE | 2020-07-22 10:55 | ULT ---
Exam: Random liver biopsy with ultrasound guidance HISTORY: Cirrhosis. Ascites. COMPARISON: None FINDINGS: Successful ultrasound-guided random liver biopsy. Single 18-gauge core biopsy sample was ob tained and placed directly in formalin. No immediate or postprocedure complications TECHNIQUE: Consent obtained to perform a left hepatic lobe biopsy under ultrasound guidance. Left hep atic lobe was identified. Skin was prepped and draped in a sterile fashion. 1% lidocaine, buffered with sodium bicarbonate was used for local anesthesia. Under ultrasound guidance, 18-gauge biopsy nee dle was advanced to the left hepatic lobe. A single 3.3 cm sample was obtained and placed directly in formalin. Postbiopsy images do not demonstrate any significant intrahepatic or hematoma or perihep atic fluid. IMPRESSION: Successful random liver biopsy with ultrasound guidance.
== END 2020-07-22 10:25 | disposition home or self-care (01) ==
LOC: ULT 07:42
PROVIDERS: ATTEND Internal Medicine Gastroenterology
PROC: 0FB03ZX Excision of Liver, Percutaneous Approach, Diagnostic (ICD-10-PCS; principal; 2020-07-22)
DX: K74.60 Unspecified cirrhosis of liver (principal); I85.10 Secondary esophageal varices without bleeding; R18.8 Other ascites; K76.6 Portal hypertension; K31.89 Other diseases of stomach and duodenum; I10 Essential (primary) hypertension; E11.9 Type 2 diabetes mellitus without complications; E78.00 Pure hypercholesterolemia, unspecified; D64.9 Anemia, unspecified; Z79.899 Other long term (current) drug therapy; Z95.1 Presence of aortocoronary bypass graft
CPT/HCPCS: 36430; 47000; 76942; 80053; 85025; 85610; 85730; 86850; 86900; 86901; 88307; 88313; J2250; J3010; P9035

== ENCOUNTER 2020-09-10 07:36 | Day surgery (SDC) | payer BC ==
[2020-09-10 08:12] LABS: #Eosinphils 0.1 thou/uL (0.0-0.7); #Lymphocytes 0.6 thou/uL (1.20-3.40); #Monocytes 0.2 thou/uL (0.11-0.59); #Neutrophils 1.5 thou/uL (1.40-6.50); %Basophils 1.1 % (0.0-1.0); %Eosinophils 3.8 % (0.0-10.0); %Lymphocytes 25.7 % (21.0-51.0); %Monocytes 8.8 % (0.0-10.0); %Neutrophils 60.6 % (42.0-75.0); Hemoglobin 12.9 g/dL (14.0-18.0); Mean Corpuscular HGB CONC 32.6 g/dL (32.0-36.0); Mean Corpuscular Hemoglobin 34.6 pg (27.0-31.0); Mean Platelet Volume 9.7 fL (7.4-10.4); Platelet Count 44 thou/uL (130-400); RBC Distribution Width 13.8 % (11.5-14.5); Red Blood Cell (RBC) Count 3.72 mill/uL (4.70-6.10); White Blood Cell (WBC) Count 2.4 thou/uL (4.8-10.8)
[2020-09-10] MEDS ORDERED: Lidocaine 1% PF 5 ML VIAL ONE (08:14)
[2020-09-10] MEDS ORDERED: Sodium Bicarbonate 2.5 MEQ/5 ML VIAL ONE (08:14)
[2020-09-10 08:25] LABS: INR-International Normal Ratio 1.4; PTT 36.5 sec (22.9-36.1); Prothrombin Time 17.6 sec (12.0-14.7)
--- NOTE | 2020-09-10 09:44 | ULT ---
US Paracentesis with Imaging History: Hepatic cirrhosis Comparison: Paracentesis June 22, 2020 Findings: Patient was brought to the ultrasound suite. All questions were answered. Informed consent obtained. Timeout performed. Patient's right lower quadrant was prepped and draped in normal sterile fashion. Using ultrasound mateo dance after adequate local anesthesia a 5 [place] Yueh needle was instilled within the peritoneal space. 4.8 L of straw-colored fluid was removed. Patient tolerated the procedure well without complic ation. Impression: Technically successful ultrasound-guided paracentesis.
[2020-09-10 10:00] VITALS: BMI 51.3
[2020-09-10 10:01] VITALS: BP 126/67; TEMP 97.5
== END 2020-09-10 09:50 | disposition home or self-care (01) ==
LOC: ULT 07:36
PROVIDERS: ATTEND Physician Assistant Medical
PROC: 0W9G3ZZ Drainage of Peritoneal Cavity, Percutaneous Approach (ICD-10-PCS; principal; 2020-09-10)
PROC: BW40ZZZ Ultrasonography of Abdomen (ICD-10-PCS; principal; 2020-09-10)
DX: K74.60 Unspecified cirrhosis of liver (principal); I85.10 Secondary esophageal varices without bleeding; R18.8 Other ascites; K72.90 Hepatic failure, unspecified without coma; K76.6 Portal hypertension; K31.89 Other diseases of stomach and duodenum; E11.9 Type 2 diabetes mellitus without complications; I10 Essential (primary) hypertension; K21.9 Gastro-esophageal reflux disease without esophagitis; E78.00 Pure hypercholesterolemia, unspecified; D64.9 Anemia, unspecified; Z95.1 Presence of aortocoronary bypass graft; Z79.899 Other long term (current) drug therapy
CPT/HCPCS: 49083; 85025; 85610; 85730

== ENCOUNTER 2020-10-28 09:01 | Outpatient (CLI) | payer BC | END 2020-10-28 09:02 | disposition home or self-care (01) | LOC: DTY/OP 09:01 | PROVIDERS: ATTEND Family Medicine | DX: I25.10 Atherosclerotic heart disease of native coronary artery without angina pectoris (principal); K74.69 Other cirrhosis of liver | CPT/HCPCS: 97802 ==

== ENCOUNTER 2020-12-24 17:42 | Inpatient (IN) | payer BC ==
[2020-12-24 18:28] LABS: Hemoglobin 13.6 g/dL (14.0-18.0); Mean Corpuscular HGB CONC 34.2 g/dL (32.0-36.0); Mean Corpuscular Hemoglobin 36.1 pg (27.0-31.0); RBC Distribution Width 13.8 % (11.5-14.5); Red Blood Cell (RBC) Count 3.76 mill/uL (4.70-6.10); White Blood Cell (WBC) Count 2.8 thou/uL (4.8-10.8)
[2020-12-24 18:29] LABS: #Eosinphils 0.1 thou/uL (0.0-0.7); #Lymphocytes 0.7 thou/uL (1.20-3.40); #Monocytes 0.2 thou/uL (0.11-0.59); #Neutrophils 1.7 thou/uL (1.40-6.50); %Basophils 1.1 % (0.0-1.0); %Eosinophils 3.7 % (0.0-10.0); %Lymphocytes 25.7 % (21.0-51.0); %Neutrophils 62.5 % (42.0-75.0)
[2020-12-24 18:47] LABS: ALT (SGPT) 43 U/L (8-55); AST (SGOT) 55 U/L (5-34); Albumin 2.8 g/dL (3.5-5.0); Alkaline Phosphatase 290 U/L (40-110); Anion Gap 13 mmol/L (10-20); BUN (Urea Nitrogen) 17 mg/dL (8.4-25.7); Bilirubin, Total 2.6 mg/dL (0.2-1.2); Calc. Creatinine Clearance 0 mL/min (70-130); Calcium 8.3 mg/dL (7.8-10.44); Carbon Dioxide 26 mmol/L (22-29); Chloride 104 mmol/L (98-107); Globulin 3.9 g/dL (2.4-3.5); Glucose 263 mg/dL (70-105); Potassium 3.7 mmol/L (3.5-5.1); Protein, Total 6.7 g/dL (6.0-8.3); Sodium 139 mmol/L (136-145)
[2020-12-24 18:48] LABS: MDiff Complete? YES; Macrocytosis SLIGHT = 6-15 cells (100X) (0-5/hpf); Mean Platelet Volume 10.1 fL (7.4-10.4); Platelet Count 41 thou/uL (130-400); Platelet Morphology Comment Appears Decreased
[2020-12-24] MEDS ORDERED: Thiamine HCl 200 MG/2 ML VIAL SLOW IVP SCH (19:00)
[2020-12-25 00:20] VITALS: BMI 37.1
[2020-12-25] MEDS ORDERED: Promethazine HCl 12.5 MG in Sodium Chloride 0.9% 50 ML IVPB PRN (02:45)
[2020-12-25] MEDS ORDERED: Acetaminophen 325 MG TAB PO PRN (02:45)
[2020-12-25] MEDS ORDERED: hydrALAZINE 20 MG/ML VIAL SLOW IVP PRN (02:45)
[2020-12-25] MEDS ORDERED: Electrolyte Replacement Protocol 1 EACH FS SCH (02:45)
[2020-12-25] MEDS ORDERED: Ondansetron PF 4 MG/2 ML Vial IVP PRN (02:45)
[2020-12-25] MEDS ORDERED: cloNIDine 0.1 MG TAB PO PRN (02:45)
[2020-12-25] MEDS ORDERED: Labetalol HCl 100 MG/20 ML VIAL SLOW IVP PRN (02:45)
[2020-12-25] MEDS ORDERED: Dextrose 5% in Water 1,000 ML IV PRN (02:51)
[2020-12-25] MEDS ORDERED: Dextrose 50% Abboject 50 ML SYRINGE SLOW IVP PRN (02:51)
[2020-12-25 08:23] LABS: Prothrombin Time Greater than 150.0 sec (12.0-14.7)
[2020-12-25] MEDS ORDERED: Heparin 5,000 UNITS/ML VIAL SC SCH (09:00)
[2020-12-25] MEDS ORDERED: Torsemide 20 MG TAB PO SCH (09:00)
[2020-12-25] MEDS ORDERED: Insulin Glargine 15 UNITS in Pre-Filled Syringe 1 EACH SC SCH (09:00)
[2020-12-25] MEDS ORDERED: Spironolactone 25 MG TAB PO SCH (09:00)
[2020-12-25] MEDS ORDERED: FLU VACC QS2020-21(6MOS UP)/PF 60 MCG/0.5 ML SYRINGE IM ONE (09:00)
[2020-12-25] MEDS ORDERED: Non-Formulary Item 1 EACH (Insulin Glargine,Hum.Rec.Anlog [Basaglar Kwikpen U-100] 100 UN PO SCH (09:00)
[2020-12-25 11:48] LABS: SARS-CoV-2 PCR by NAA Not Detected (NotDetected)
[2020-12-25 12:10] LABS: #Eosinphils 0.1 thou/uL (0.0-0.7); #Lymphocytes 0.6 thou/uL (1.20-3.40); #Monocytes 0.2 thou/uL (0.11-0.59); #Neutrophils 1.7 thou/uL (1.40-6.50); %Basophils 0.6 % (0.0-1.0); %Eosinophils 2.8 % (0.0-10.0); %Lymphocytes 23.9 % (21.0-51.0); %Monocytes 8.7 % (0.0-10.0); %Neutrophils 64.1 % (42.0-75.0); Hemoglobin 13.7 g/dL (14.0-18.0); Mean Corpuscular HGB CONC 34.3 g/dL (32.0-36.0); Mean Corpuscular Hemoglobin 36.4 pg (27.0-31.0); Platelet Count 42 thou/uL (130-400); RBC Distribution Width 13.9 % (11.5-14.5); Red Blood Cell (RBC) Count 3.77 mill/uL (4.70-6.10); White Blood Cell (WBC) Count 2.7 thou/uL (4.8-10.8)
[2020-12-25 12:17] LABS: INR-International Normal Ratio 1.3; PTT 30.3 sec (22.9-36.1); Prothrombin Time 16.9 sec (12.0-14.7)
[2020-12-25 12:32] LABS: ALT (SGPT) 45 U/L (8-55); AST (SGOT) 55 U/L (5-34); Albumin 2.6 g/dL (3.5-5.0); Alkaline Phosphatase 189 U/L (40-110); Anion Gap 10 mmol/L (10-20); BUN (Urea Nitrogen) 12 mg/dL (8.4-25.7); Calc. Creatinine Clearance 207 mL/min (70-130); Calcium 8.4 mg/dL (7.8-10.44); Carbon Dioxide 26 mmol/L (22-29); Chloride 106 mmol/L (98-107); Glucose 197 mg/dL (70-105); Magnesium 1.9 mg/dL (1.6-2.6); Phosphorus 3.1 mg/dL (2.3-4.7); Potassium 3.9 mmol/L (3.5-5.1); Protein, Total 6.6 g/dL (6.0-8.3); Sodium 138 mmol/L (136-145)
[2020-12-25] MEDS ORDERED: Magnesium 2 GM/50 ML 2 GM in Premix Bag 1 BAG IVPB SCH (12:45)
[2020-12-25] MEDS: Rifaximin 550 MG TAB PO SCH ×2 (12:52→20:26)
[2020-12-25] MEDS: Carvedilol 3.125 MG TAB PO SCH ×2 (12:52→20:26)
[2020-12-25] MEDS: Dextrose 5 % And 0.9 % NaCl 1,000 ML IV SCH (15:56)
[2020-12-25 18:16] LABS: Bacteria/HPF None Seen HPF (None Seen); Bilirubin Negative (Negative); Blood, Urine Negative (Negative); Clarity Clear (Clear); Glucose, Urine (Dipstick) 100 mg/dL (Negative); Ketone, Urine Negative (Negative); Leukocyte Negative Leu/uL (Negative); Nitrite Negative (Negative); Protein, Urine (Dipstick) 20 mg/dL (Neg-Trace); Specific Gravity, Urine 1.028 (1.002-1.036); Squamous Epithelial 0-3 HPF (0-3); Urobilinogen 12 mg/dL (Less than 2); WBC/HPF 0-3 HPF (0-3); pH, Urine 7.5 (5.0-9.0)
[2020-12-25 18:18] LABS: Urine Culture Reflex No No
[2020-12-25] MEDS: Phytonadione 10 MG/ML AMP PO SCH (20:23)
[2020-12-25] MEDS ORDERED: Enoxaparin Sodium 40 MG/0.4 ML SYRINGE SC SCH (21:00)
[2020-12-26 05:12] LABS: ALT (SGPT) 42 U/L (8-55); AST (SGOT) 52 U/L (5-34); Albumin 2.4 g/dL (3.5-5.0); Alkaline Phosphatase 147 U/L (40-110); Anion Gap 9 mmol/L (10-20); BUN (Urea Nitrogen) 10 mg/dL (8.4-25.7); Bilirubin, Direct 1.3 mg/dL (0.1-0.3); Bilirubin, Total 2.9 mg/dL (0.2-1.2); Calc. Creatinine Clearance 233 mL/min (70-130); Carbon Dioxide 24 mmol/L (22-29); Chloride 110 mmol/L (98-107); Globulin 3.6 g/dL (2.4-3.5); Glucose 191 mg/dL (70-105); Magnesium 1.8 mg/dL (1.6-2.6); Potassium 3.7 mmol/L (3.5-5.1); Sodium 139 mmol/L (136-145)
[2020-12-26 05:13] LABS: Phosphorus 3.3 mg/dL (2.3-4.7)
[2020-12-26 05:22] LABS: #Eosinphils 0.1 thou/uL (0.0-0.7); #Lymphocytes 0.8 thou/uL (1.20-3.40); #Monocytes 0.2 thou/uL (0.11-0.59); #Neutrophils 1.4 thou/uL (1.40-6.50); %Basophils 1.4 % (0.0-1.0); %Eosinophils 4.9 % (0.0-10.0); %Lymphocytes 31.3 % (21.0-51.0); %Monocytes 9.2 % (0.0-10.0); %Neutrophils 53.2 % (42.0-75.0); Hemoglobin 12.8 g/dL (14.0-18.0); Mean Corpuscular HGB CONC 33.7 g/dL (32.0-36.0); Mean Corpuscular Hemoglobin 35.4 pg (27.0-31.0); Mean Platelet Volume 10.1 fL (7.4-10.4); Platelet Count 42 thou/uL (130-400); RBC Distribution Width 13.8 % (11.5-14.5); Red Blood Cell (RBC) Count 3.63 mill/uL (4.70-6.10); White Blood Cell (WBC) Count 2.6 thou/uL (4.8-10.8)
[2020-12-26] MEDS ORDERED: Magnesium 2 GM/50 ML 2 GM in Premix Bag 1 BAG IVPB SCH (05:45)
[2020-12-26] MEDS: Carvedilol 3.125 MG TAB PO SCH ×2 (08:46→21:43)
[2020-12-26] MEDS: Rifaximin 550 MG TAB PO SCH ×2 (08:46→21:43)
[2020-12-26] MEDS: Dextrose 5 % And 0.9 % NaCl 1,000 ML IV SCH (12:46)
[2020-12-26] MEDS: HumaLOG 300 UNITS/3 ML VIAL SC PRN (18:12)
[2020-12-26] MEDS: Phytonadione 10 MG/ML AMP PO SCH (21:43)
[2020-12-27] MEDS: HumaLOG 300 UNITS/3 ML VIAL SC PRN (04:50)
[2020-12-27] MEDS: Carvedilol 3.125 MG TAB PO SCH (08:22)
[2020-12-27] MEDS: Rifaximin 550 MG TAB PO SCH (08:22)
[2020-12-27 13:40] VITALS: BP 133/85; TEMP 97.5
== END 2020-12-27 11:41 | disposition home or self-care (01) | DRG 441 ==
LOC: ERS 17:42 → T4-A 20:03
PROVIDERS: ADMIT Internal Medicine; ATTEND Internal Medicine
DX: K72.90 Hepatic failure, unspecified without coma (principal); G92 Toxic encephalopathy; D61.818 Other pancytopenia; K75.81 Nonalcoholic steatohepatitis (NASH); K74.60 Unspecified cirrhosis of liver; I10 Essential (primary) hypertension; E78.5 Hyperlipidemia, unspecified; I25.10 Atherosclerotic heart disease of native coronary artery without angina pectoris; E11.65 Type 2 diabetes mellitus with hyperglycemia; D64.9 Anemia, unspecified; K59.00 Constipation, unspecified; K75.4 Autoimmune hepatitis; E83.42 Hypomagnesemia; Z95.1 Presence of aortocoronary bypass graft; Z79.4 Long term (current) use of insulin; Z79.52 Long term (current) use of systemic steroids; Z79.899 Other long term (current) drug therapy
CPT/HCPCS: 36415; 36416; 70450; 76705; 80053; 80076; 81001; 82140; 83735; 84100; 84484; 85025; 85610; 85730; 87040; 87635; 93005; 96365; J1815; J3411; J3430; J3475; U0003; U0005

== ENCOUNTER 2021-03-24 10:14 | Day surgery (SDC) | payer BC ==
[2021-03-24 10:47] LABS: #Eosinphils 0.1 thou/uL (0.0-0.7); #Lymphocytes 0.6 thou/uL (1.20-3.40); #Monocytes 0.3 thou/uL (0.11-0.59); #Neutrophils 2.1 thou/uL (1.40-6.50); %Eosinophils 2.7 % (0.0-10.0); %Lymphocytes 18.3 % (21.0-51.0); %Monocytes 10.1 % (0.0-10.0); %Neutrophils 67.9 % (42.0-75.0); Hemoglobin 11.4 g/dL (14.0-18.0); Mean Corpuscular HGB CONC 32.8 g/dL (32.0-36.0); Mean Corpuscular Hemoglobin 35.2 pg (27.0-31.0); Platelet Count 51 thou/uL (130-400); RBC Distribution Width 13.9 % (11.5-14.5); Red Blood Cell (RBC) Count 3.25 mill/uL (4.70-6.10); White Blood Cell (WBC) Count 3.1 thou/uL (4.8-10.8)
[2021-03-24 10:50] LABS: INR-International Normal Ratio 1.5; Prothrombin Time 18.8 sec (12.0-14.7)
[2021-03-24 10:51] LABS: PTT 34.3 sec (22.9-36.1)
[2021-03-24] MEDS ORDERED: Lidocaine 1% PF 5 ML VIAL ONE (11:28)
[2021-03-24] MEDS ORDERED: Sodium Bicarbonate 2.5 MEQ/5 ML VIAL ONE (11:28)
[2021-03-24 13:56] VITALS: BP 122/63; TEMP 98.3; BMI 47.1
== END 2021-03-24 12:40 | disposition home or self-care (01) ==
LOC: ULT 10:14
PROVIDERS: ATTEND Physician Assistant Medical
DX: K74.60 Unspecified cirrhosis of liver (principal); I85.10 Secondary esophageal varices without bleeding; R18.8 Other ascites; K72.90 Hepatic failure, unspecified without coma; K75.81 Nonalcoholic steatohepatitis (NASH); E11.9 Type 2 diabetes mellitus without complications; I10 Essential (primary) hypertension; I25.10 Atherosclerotic heart disease of native coronary artery without angina pectoris; E66.01 Morbid (severe) obesity due to excess calories; K21.9 Gastro-esophageal reflux disease without esophagitis; Z68.42 Body mass index [BMI] 45.0-49.9, adult; Z95.1 Presence of aortocoronary bypass graft
CPT/HCPCS: 49083; 85025; 85610; 85730

== ENCOUNTER 2021-05-25 16:26 | Inpatient (IN) | payer BC ==
[2021-05-25 17:17] LABS: Hemoglobin 13.1 g/dL (14.0-18.0); Mean Corpuscular HGB CONC 34.3 g/dL (32.0-36.0); Mean Corpuscular Hemoglobin 35.4 pg (27.0-31.0); RBC Distribution Width 14.1 % (11.5-14.5); White Blood Cell (WBC) Count 4.2 thou/uL (4.8-10.8)
[2021-05-25 17:19] LABS: #Lymphocytes 0.3 thou/uL (1.20-3.40); #Monocytes 0.3 thou/uL (0.11-0.59); #Neutrophils 3.5 thou/uL (1.40-6.50); %Basophils 0.2 % (0.0-1.0); %Eosinophils 0.9 % (0.0-10.0); %Lymphocytes 7.1 % (21.0-51.0); %Monocytes 6.8 % (0.0-10.0); Mean Platelet Volume 10.3 fL (7.4-10.4); Platelet Count 51 thou/uL (130-400)
[2021-05-25 17:31] LABS: ALT (SGPT) 33 U/L (8-55); AST (SGOT) 55 U/L (5-34); Albumin 2.5 g/dL (3.5-5.0); Alkaline Phosphatase 220 U/L (40-110); Anion Gap 15 mmol/L (10-20); BUN (Urea Nitrogen) 17 mg/dL (8.4-25.7); Bilirubin, Total 3.6 mg/dL (0.2-1.2); Calc. Creatinine Clearance 0 mL/min (70-130); Calcium 7.8 mg/dL (7.8-10.44); Carbon Dioxide 21 mmol/L (22-29); Chloride 104 mmol/L (98-107); Globulin 4.4 g/dL (2.4-3.5); Glucose 265 mg/dL (70-105); Potassium 3.2 mmol/L (3.5-5.1); Protein, Total 6.9 g/dL (6.0-8.3); Sodium 137 mmol/L (136-145)
[2021-05-25] MEDS ORDERED: Vancomycin 1 GM/200 ML BAG ONE (17:53)
[2021-05-25] MEDS ORDERED: Cefepime 2 GM VIAL ONE (17:53)
[2021-05-25] MEDS ORDERED: Albumin 25% 25 GM/100 ML BOT IVPB SCH (21:00)
[2021-05-25 21:04] LABS: Bilirubin Negative (Negative); Blood, Urine Negative (Negative); Clarity Clear (Clear); Glucose, Urine (Dipstick) Greater than 1000 mg/dL (Negative); Ketone, Urine Trace mg/dL (Negative); Leukocyte Negative Leu/uL (Negative); Nitrite Negative (Negative); Protein, Urine (Dipstick) 10 mg/dL (Neg-Trace); pH, Urine 5.5 (5.0-9.0)
[2021-05-25 21:20] LABS: Lactic Acid 2.9 mmol/L (0.5-2.2)
[2021-05-25] MEDS ORDERED: Ondansetron ODT 4 MG TAB SL PRN (22:45)
[2021-05-25] MEDS ORDERED: Ondansetron PF 4 MG/2 ML Vial IVP PRN (22:45)
[2021-05-25] MEDS ORDERED: Acetaminophen 325 MG TAB PO PRN (22:45)
[2021-05-25 23:28] VITALS: BMI 44.3
[2021-05-26] MEDS ORDERED: Ondansetron PF 4 MG/2 ML Vial IVP PRN (02:25)
[2021-05-26] MEDS ORDERED: Acetaminophen 500 MG TAB PO PRN (02:25)
[2021-05-26] MEDS ORDERED: Dextrose 5% in Water 1,000 ML IV PRN (02:28)
[2021-05-26] MEDS ORDERED: hydrALAZINE 20 MG/ML VIAL SLOW IVP PRN (02:28)
[2021-05-26] MEDS ORDERED: Dextrose 50% Abboject 50 ML SYRINGE SLOW IVP PRN (02:28)
[2021-05-26] MEDS ORDERED: Sodium Chloride 0.9% 1,000 ML IV SCH (02:45)
[2021-05-26] MEDS ORDERED: Potassium Chloride 20 MEQ TAB PO SCH (03:00)
[2021-05-26] MEDS: Cefepime 1 GM in Sodium Chloride 0.9% 100 ML IVPB SCH ×2 (03:50→16:02)
[2021-05-26] MEDS: HumaLOG 300 UNITS/3 ML VIAL SC PRN ×3 (04:59→20:45)
[2021-05-26] MEDS ORDERED: VANCOMYCIN 2 GRAM/400 ML BAG 2 GM in Premix Bag 1 BAG IVPB SCH (05:00)
[2021-05-26 06:15] LABS: #Lymphocytes 0.5 thou/uL (1.20-3.40); #Monocytes 0.4 thou/uL (0.11-0.59); #Neutrophils 5.8 thou/uL (1.40-6.50); %Basophils 0.1 % (0.0-1.0); %Lymphocytes 7.2 % (21.0-51.0); %Monocytes 6.5 % (0.0-10.0); %Neutrophils 86.2 % (42.0-75.0); Hemoglobin 12.1 g/dL (14.0-18.0); Mean Corpuscular HGB CONC 34.7 g/dL (32.0-36.0); Mean Corpuscular Hemoglobin 36.4 pg (27.0-31.0); Mean Platelet Volume 10.8 fL (7.4-10.4); Platelet Count 36 thou/uL (130-400); RBC Distribution Width 14.1 % (11.5-14.5); Red Blood Cell (RBC) Count 3.32 mill/uL (4.70-6.10); White Blood Cell (WBC) Count 6.7 thou/uL (4.8-10.8)
[2021-05-26 06:25] LABS: INR-International Normal Ratio 1.8; PTT 36.3 sec (22.9-36.1); Prothrombin Time 20.9 sec (12.0-14.7)
[2021-05-26 06:35] LABS: Anion Gap 13 mmol/L (10-20); BUN (Urea Nitrogen) 19 mg/dL (8.4-25.7); Calc. Creatinine Clearance 212 mL/min (70-130); Calcium 7.5 mg/dL (7.8-10.44); Carbon Dioxide 22 mmol/L (22-29); Chloride 104 mmol/L (98-107); Glucose 292 mg/dL (70-105); Magnesium 1.6 mg/dL (1.6-2.6); Sodium 136 mmol/L (136-145)
[2021-05-26] MEDS: Rifaximin 550 MG TAB PO SCH ×2 (08:22→20:44)
[2021-05-26] MEDS ORDERED: Sodium Bicarbonate 2.5 MEQ/5 ML VIAL ONE (12:48)
[2021-05-26] MEDS ORDERED: Lidocaine 1% PF 5 ML VIAL ONE (12:48)
[2021-05-26] MEDS: Carvedilol 3.125 MG TAB PO SCH (20:44)
[2021-05-26] MEDS: Lantus 1000 UNITS/10 ML VIAL SC SCH (20:45)
[2021-05-27] MEDS: Cefepime 1 GM in Sodium Chloride 0.9% 100 ML IVPB SCH ×2 (04:23→15:47)
[2021-05-27] MEDS: HumaLOG 300 UNITS/3 ML VIAL SC PRN ×4 (04:52→20:40)
[2021-05-27 06:40] LABS: Anion Gap 11 mmol/L (10-20); BUN (Urea Nitrogen) 22 mg/dL (8.4-25.7); Calc. Creatinine Clearance 220 mL/min (70-130); Calcium 7.3 mg/dL (7.8-10.44); Carbon Dioxide 22 mmol/L (22-29); Chloride 101 mmol/L (98-107); Glucose 245 mg/dL (70-105); Magnesium 1.7 mg/dL (1.6-2.6); Potassium 3.3 mmol/L (3.5-5.1); Sodium 131 mmol/L (136-145)
[2021-05-27 06:45] LABS: #Eosinphils 0.1 thou/uL (0.0-0.7); #Lymphocytes 0.6 thou/uL (1.20-3.40); #Monocytes 0.5 thou/uL (0.11-0.59); #Neutrophils 4.6 thou/uL (1.40-6.50); %Basophils 0.5 % (0.0-1.0); %Eosinophils 1.5 % (0.0-10.0); %Lymphocytes 9.9 % (21.0-51.0); %Monocytes 9.3 % (0.0-10.0); %Neutrophils 78.8 % (42.0-75.0); Hemoglobin 11.8 g/dL (14.0-18.0); Mean Corpuscular HGB CONC 32.9 g/dL (32.0-36.0); Mean Platelet Volume 11.5 fL (7.4-10.4); Platelet Count 42 thou/uL (130-400); Red Blood Cell (RBC) Count 3.37 mill/uL (4.70-6.10); White Blood Cell (WBC) Count 5.8 thou/uL (4.8-10.8)
[2021-05-27] MEDS ORDERED: Non-Formulary Item 1 EACH (Omeprazole Magnesium [Prilosec] 10 MG Suspdr.Pkt) PO SCH (09:00)
[2021-05-27] MEDS: Carvedilol 3.125 MG TAB PO SCH ×2 (09:12→20:38)
[2021-05-27] MEDS: Rifaximin 550 MG TAB PO SCH ×2 (09:12→20:38)
[2021-05-27] MEDS: Lantus 1000 UNITS/10 ML VIAL SC SCH ×2 (09:12→20:39)
[2021-05-27] MEDS: Lactinex Tablet PO SCH (09:12)
[2021-05-27] MEDS: Empagliflozin 25 MG TAB PO SCH (09:14)
[2021-05-27 16:44] LABS: Vancomycin, Trough 3.3 ug/mL
[2021-05-28] MEDS: HumaLOG 300 UNITS/3 ML VIAL SC PRN ×3 (05:29→16:38)
[2021-05-28 06:10] LABS: Hemoglobin 12.4 g/dL (14.0-18.0); Mean Corpuscular HGB CONC 32.9 g/dL (32.0-36.0); Mean Corpuscular Hemoglobin 34.8 pg (27.0-31.0); Mean Platelet Volume 11.1 fL (7.4-10.4); Platelet Count 43 thou/uL (130-400); RBC Distribution Width 13.7 % (11.5-14.5); Red Blood Cell (RBC) Count 3.56 mill/uL (4.70-6.10); White Blood Cell (WBC) Count 3.8 thou/uL (4.8-10.8)
[2021-05-28 06:30] LABS: ALT (SGPT) 26 U/L (8-55); AST (SGOT) 35 U/L (5-34); Albumin 2.2 g/dL (3.5-5.0); Alkaline Phosphatase 110 U/L (40-110); Bilirubin, Direct 1.9 mg/dL (0.1-0.3); Bilirubin, Total 3.5 mg/dL (0.2-1.2); Protein, Total 6.1 g/dL (6.0-8.3)
[2021-05-28 06:35] LABS: Anion Gap 10 mmol/L (10-20); BUN (Urea Nitrogen) 20 mg/dL (8.4-25.7); Calc. Creatinine Clearance 246 mL/min (70-130); Calcium 7.5 mg/dL (7.8-10.44); Carbon Dioxide 21 mmol/L (22-29); Chloride 103 mmol/L (98-107); Glucose 218 mg/dL (70-105); Magnesium 1.9 mg/dL (1.6-2.6); Potassium 3.3 mmol/L (3.5-5.1); Sodium 131 mmol/L (136-145)
[2021-05-28 06:42] LABS: Band 5 % (5-11); Eosinophils 7 % (0-10); Lymphocytes 7 % (21-51); MDiff Complete? YES; Macrocytosis SLIGHT = 6-15 cells (100X) (0-5/hpf); Monocytes 14 % (0-10); Neutrophil 67 % (42-75); Platelet Morphology Comment Appears Decreased
[2021-05-28] MEDS: Lantus 1000 UNITS/10 ML VIAL SC SCH (07:55)
[2021-05-28] MEDS: Lactinex Tablet PO SCH (07:55)
[2021-05-28] MEDS: Empagliflozin 25 MG TAB PO SCH (07:56)
[2021-05-28] MEDS: Carvedilol 3.125 MG TAB PO SCH ×2 (07:56→21:00)
[2021-05-28] MEDS: Rifaximin 550 MG TAB PO SCH ×2 (07:56→20:47)
[2021-05-28] MEDS ORDERED: Potassium Chloride 20 MEQ TAB PO SCH (20:00)
[2021-05-28] MEDS ORDERED: Lantus 1000 UNITS/10 ML VIAL SC SCH (21:00)
[2021-05-29 05:58] LABS: #Eosinphils 0.1 thou/uL (0.0-0.7); #Lymphocytes 0.6 thou/uL (1.20-3.40); #Monocytes 0.4 thou/uL (0.11-0.59); #Neutrophils 2.2 thou/uL (1.40-6.50); %Basophils 0.4 % (0.0-1.0); %Eosinophils 2.9 % (0.0-10.0); %Monocytes 12.5 % (0.0-10.0); %Neutrophils 66.2 % (42.0-75.0); Hemoglobin 12.3 g/dL (14.0-18.0); Mean Corpuscular HGB CONC 34.4 g/dL (32.0-36.0); Mean Platelet Volume 10.5 fL (7.4-10.4); Platelet Count 50 thou/uL (130-400); RBC Distribution Width 13.9 % (11.5-14.5); Red Blood Cell (RBC) Count 3.42 mill/uL (4.70-6.10); White Blood Cell (WBC) Count 3.3 thou/uL (4.8-10.8)
[2021-05-29 06:14] LABS: Anion Gap 10 mmol/L (10-20); BUN (Urea Nitrogen) 14 mg/dL (8.4-25.7); Calc. Creatinine Clearance 246 mL/min (70-130); Calcium 7.5 mg/dL (7.8-10.44); Carbon Dioxide 25 mmol/L (22-29); Chloride 104 mmol/L (98-107); Glucose 173 mg/dL (70-105); Magnesium 1.9 mg/dL (1.6-2.6); Potassium 3.5 mmol/L (3.5-5.1); Sodium 135 mmol/L (136-145)
[2021-05-29] MEDS: Empagliflozin 25 MG TAB PO SCH (06:50)
[2021-05-29] MEDS: Lactinex Tablet PO SCH (07:55)
[2021-05-29] MEDS: Rifaximin 550 MG TAB PO SCH (07:55)
[2021-05-29] MEDS: Carvedilol 3.125 MG TAB PO SCH (07:56)
[2021-05-29] MEDS ORDERED: Torsemide 20 MG TAB PO SCH (09:00)
[2021-05-29] MEDS ORDERED: Lantus 1000 UNITS/10 ML VIAL SC SCH ×2 (09:00→09:30)
[2021-05-29] MEDS: HumaLOG 300 UNITS/3 ML VIAL SC PRN (11:54)
[2021-05-29 11:57] VITALS: BP 100/53; TEMP 97.9
[2021-05-30] MEDS ORDERED: Lantus 1000 UNITS/10 ML VIAL SC SCH (09:00)
== END 2021-05-29 13:27 | disposition home or self-care (01) | DRG 871 ==
LOC: ERS 16:26 → T4-B 21:05
PROVIDERS: ADMIT Internal Medicine; ATTEND Internal Medicine
DX: A41.59 Other Gram-negative sepsis (principal); G93.41 Metabolic encephalopathy; E87.1 Hypo-osmolality and hyponatremia; L03.116 Cellulitis of left lower limb; R18.8 Other ascites; Z68.41 Body mass index [BMI] 40.0-44.9, adult; K76.6 Portal hypertension; D61.818 Other pancytopenia; E87.6 Hypokalemia; R65.20 Severe sepsis without septic shock; R74.01 Elevation of levels of liver transaminase levels; I25.10 Atherosclerotic heart disease of native coronary artery without angina pectoris; E78.5 Hyperlipidemia, unspecified; E11.65 Type 2 diabetes mellitus with hyperglycemia; K74.60 Unspecified cirrhosis of liver; I50.9 Heart failure, unspecified; K75.4 Autoimmune hepatitis; I11.0 Hypertensive heart disease with heart failure; K72.90 Hepatic failure, unspecified without coma; E66.01 Morbid (severe) obesity due to excess calories; K75.81 Nonalcoholic steatohepatitis (NASH); Z95.1 Presence of aortocoronary bypass graft; Z79.899 Other long term (current) drug therapy; Z79.4 Long term (current) use of insulin
CPT/HCPCS: 36415; 36416; 71045; 76705; 80048; 80053; 80076; 80202; 81003; 82140; 83605; 83735; 85025; 85610; 85730; 87040; 87077; 87149; 87186; 93306; 96365; 96367; J0692; J1815; J3370; J3490; P9047

== ENCOUNTER 2021-07-21 11:49 | Outpatient (CLI) | payer BC ==
[2021-07-22 10:35] LABS: SARS-CoV-2 PCR by NAA Not Detected (NotDetected)
== END 2021-07-21 11:50 | disposition home or self-care (01) ==
LOC: LABBT 11:49
PROVIDERS: ATTEND Internal Medicine
DX: Z01.812 Encounter for preprocedural laboratory examination (principal); I85.00 Esophageal varices without bleeding; Z20.822 Contact with and (suspected) exposure to COVID-19
CPT/HCPCS: U0003; U0005

== ENCOUNTER 2021-07-25 06:10 | Day surgery (SDC) | payer BC ==
[2021-07-22 11:30] VITALS: BMI 39.0
[2021-07-25] MEDS ORDERED: PROPOFOL 200 MG/20 ML VIAL ONE (08:13)
[2021-07-25] MEDS ORDERED: Lidocaine 1% PF 5 ML VIAL ONE (08:13)
== END 2021-07-25 09:17 | disposition home or self-care (01) ==
LOC: SDC 06:10
PROVIDERS: ATTEND Internal Medicine
PROC: 0DJ08ZZ Inspection of Upper Intestinal Tract, Via Natural or Artificial Opening Endoscopic (ICD-10-PCS; principal; 2021-07-25)
DX: Z09 Encounter for follow-up examination after completed treatment for conditions other than malignant neoplasm (principal); K76.6 Portal hypertension; K31.89 Other diseases of stomach and duodenum; K75.4 Autoimmune hepatitis; K74.69 Other cirrhosis of liver; K72.91 Hepatic failure, unspecified with coma; E11.9 Type 2 diabetes mellitus without complications; E78.00 Pure hypercholesterolemia, unspecified; I10 Essential (primary) hypertension; E66.9 Obesity, unspecified; Z68.39 Body mass index [BMI] 39.0-39.9, adult; Z79.4 Long term (current) use of insulin; Z79.899 Other long term (current) drug therapy; Z95.1 Presence of aortocoronary bypass graft
CPT/HCPCS: 36416; J2704

== ENCOUNTER 2021-11-13 17:39 | Emergency (ER) | payer BC ==
[2021-11-13 18:16] LABS: #Eosinphils 0.1 thou/uL (0.0-0.7); #Lymphocytes 0.7 thou/uL (1.20-3.40); #Monocytes 0.3 thou/uL (0.11-0.59); #Neutrophils 2.4 thou/uL (1.40-6.50); %Basophils 0.7 % (0.0-1.0); %Eosinophils 3.2 % (0.0-10.0); %Lymphocytes 19.3 % (21.0-51.0); %Monocytes 8.9 % (0.0-10.0); %Neutrophils 67.9 % (42.0-75.0); Hemoglobin 13.8 g/dL (14.0-18.0); Mean Corpuscular HGB CONC 33.7 g/dL (32.0-36.0); Mean Corpuscular Hemoglobin 36.1 pg (27.0-31.0); Mean Platelet Volume 9.7 fL (7.4-10.4); Platelet Count 44 thou/uL (130-400); RBC Distribution Width 13.2 % (11.5-14.5); Red Blood Cell (RBC) Count 3.82 mill/uL (4.70-6.10); White Blood Cell (WBC) Count 3.5 thou/uL (4.8-10.8)
[2021-11-13 18:30] LABS: MDiff Complete? YES; Macrocytosis SLIGHT = 6-15 cells (100X) (0-5/hpf); Platelet Morphology Comment Appears Decreased; Polychromasia SLIGHT = 2-3 cells (100X) (0-2/hpf)
[2021-11-13 18:34] LABS: ALT (SGPT) 42 U/L (8-55); AST (SGOT) 65 U/L (5-34); Albumin 2.3 g/dL (3.5-5.0); Alkaline Phosphatase 187 U/L (40-110); Anion Gap 10 mmol/L (10-20); BUN (Urea Nitrogen) 17 mg/dL (8.4-25.7); Bilirubin, Total 3.1 mg/dL (0.2-1.2); Calc. Creatinine Clearance 0 mL/min (70-130); Calcium 7.5 mg/dL (7.8-10.44); Carbon Dioxide 26 mmol/L (22-29); Chloride 106 mmol/L (98-107); Globulin 3.9 g/dL (2.4-3.5); Glucose 291 mg/dL (70-105); Protein, Total 6.2 g/dL (6.0-8.3); Sodium 139 mmol/L (136-145)
[2021-11-13] MEDS ORDERED: Furosemide 40 MG/4 ML VIAL ONE (18:48)
[2021-11-13 18:50] LABS: INR-International Normal Ratio 1.6; Prothrombin Time 18.9 sec (12.0-14.7)
[2021-11-13 18:51] LABS: PTT 35.8 sec (22.9-36.1)
[2021-11-13 18:58] LABS: Lipase 56 U/L (8-78); Magnesium 1.6 mg/dL (1.6-2.6)
[2021-11-13 20:05] LABS: Bilirubin Negative (Negative); Blood, Urine Negative (Negative); Clarity Clear (Clear); Glucose, Urine (Dipstick) 50 mg/dL (Negative); Ketone, Urine Negative (Negative); Leukocyte Negative Leu/uL (Negative); Nitrite Negative (Negative); Protein, Urine (Dipstick) Negative (Neg-Trace); Specific Gravity, Urine 1.016 (1.002-1.036)
== END 2021-11-13 21:15 | disposition home or self-care (01) ==
LOC: ERS 17:39
DX: R06.02 Shortness of breath (principal); K74.60 Unspecified cirrhosis of liver; E11.65 Type 2 diabetes mellitus with hyperglycemia; I11.0 Hypertensive heart disease with heart failure; Z79.4 Long term (current) use of insulin; Z79.899 Other long term (current) drug therapy
CPT/HCPCS: 36415; 71045; 80053; 81003; 83690; 83735; 83880; 84484; 85025; 85610; 85730; 93005; 96374; J1940

== ENCOUNTER 2022-01-07 09:10 | Emergency (ER) | payer BC ==
[2022-01-07] MEDS ORDERED: Ondansetron PF 4 MG/2 ML Vial ONE (09:50)
[2022-01-07] MEDS ORDERED: Morphine 4 MG/ML VIAL ONE (09:50)
[2022-01-07 09:54] LABS: #Lymphocytes 0.4 thou/uL (1.20-3.40); #Monocytes 0.1 thou/uL (0.11-0.59); #Neutrophils 3.3 thou/uL (1.40-6.50); %Basophils 0.4 % (0.0-1.0); %Eosinophils 0.4 % (0.0-10.0); %Lymphocytes 9.3 % (21.0-51.0); %Monocytes 3.8 % (0.0-10.0); %Neutrophils 86.2 % (42.0-75.0); Hemoglobin 14.6 g/dL (14.0-18.0); Mean Corpuscular HGB CONC 33.3 g/dL (32.0-36.0); Mean Corpuscular Hemoglobin 36.4 pg (27.0-31.0); Mean Platelet Volume 10.8 fL (7.4-10.4); Platelet Count 41 thou/uL (130-400); RBC Distribution Width 14.2 % (11.5-14.5); Red Blood Cell (RBC) Count 4.02 mill/uL (4.70-6.10); White Blood Cell (WBC) Count 3.8 thou/uL (4.8-10.8)
[2022-01-07 10:07] LABS: ALT (SGPT) 50 U/L (8-55); AST (SGOT) 62 U/L (5-34); Albumin 2.9 g/dL (3.5-5.0); Alkaline Phosphatase 195 U/L (40-110); Anion Gap 14 mmol/L (10-20); BUN (Urea Nitrogen) 17 mg/dL (8.4-25.7); Bilirubin, Total 3.4 mg/dL (0.2-1.2); CK (CPK) 197 U/L (30-200); Calc. Creatinine Clearance 0 mL/min (70-130); Calcium 8.9 mg/dL (7.8-10.44); Carbon Dioxide 21 mmol/L (22-29); Chloride 105 mmol/L (98-107); Globulin 4.6 g/dL (2.4-3.5); Glucose 262 mg/dL (70-105); Lipase 41 U/L (8-78); Potassium 4.7 mmol/L (3.5-5.1); Protein, Total 7.5 g/dL (6.0-8.3); Sodium 135 mmol/L (136-145)
[2022-01-07] MEDS ORDERED: Iopamidol 370 76% 100 ML VIAL ONE (10:43)
[2022-01-07] MEDS ORDERED: Ketorolac Tromethamine 30 MG/ML VIAL ONE (11:11)
== END 2022-01-07 12:18 | disposition home or self-care (01) ==
LOC: ERS 09:10
DX: K80.20 Calculus of gallbladder without cholecystitis without obstruction (principal); K74.60 Unspecified cirrhosis of liver; I11.0 Hypertensive heart disease with heart failure; I50.9 Heart failure, unspecified; E11.9 Type 2 diabetes mellitus without complications
CPT/HCPCS: 36415; 74177; 80053; 82140; 82550; 83690; 83880; 84484; 85025; 96374; 96375; J1885; J2270; J2405; Q9967

== ENCOUNTER 2022-06-06 20:59 | Inpatient (IN) | payer BC ==
[2022-06-06 22:48] LABS: ALT (SGPT) 41 U/L (8-55); AST (SGOT) 63 U/L (5-34); Albumin 4.1 g/dL (3.5-5.0); Alkaline Phosphatase 195 U/L (40-110); Anion Gap 17 mmol/L (10-20); BUN (Urea Nitrogen) 46 mg/dL (8.4-25.7); Bilirubin, Total 13.1 mg/dL (0.2-1.2); Calc. Creatinine Clearance 0 mL/min (70-130); Calcium 10.4 mg/dL (7.8-10.44); Carbon Dioxide 25 mmol/L (22-29); Chloride 90 mmol/L (98-107); Estimated GFR 64; Globulin 3.6 g/dL (2.4-3.5); Glucose 216 mg/dL (70-105); Lipase 87 U/L (8-78); Protein, Total 7.7 g/dL (6.0-8.3); Sodium 127 mmol/L (136-145)
[2022-06-06 23:44] LABS: Bacteria/HPF None Seen HPF (None Seen); Bilirubin Negative (Negative); Blood, Urine Trace (Negative); Clarity Clear (Clear); Glucose, Urine (Dipstick) Normal (Negative); Ketone, Urine Negative (Negative); Leukocyte Negative Leu/uL (Negative); Nitrite Negative (Negative); Protein, Urine (Dipstick) Negative (Neg-Trace); RBC/HPF 0-3 HPF (0-3); Specific Gravity, Urine 1.012 (1.002-1.036); Squamous Epithelial 0-3 HPF (0-3); Urobilinogen Normal mg/dL (Less than 2); WBC/HPF 0-3 HPF (0-3)
[2022-06-07] MEDS ORDERED: Senokot S 8.6-50 MG TAB PO PRN (00:51)
[2022-06-07] MEDS ORDERED: Dextrose 5% in Water 1,000 ML IV PRN (00:51)
[2022-06-07] MEDS ORDERED: Dextrose 50% Abboject 50 ML SYRINGE SLOW IVP PRN (00:51)
[2022-06-07] MEDS ORDERED: hydrALAZINE 20 MG/ML VIAL SLOW IVP PRN (02:01)
[2022-06-07 02:46] VITALS: BMI 36.3
[2022-06-07 06:34] LABS: ALT (SGPT) 40 U/L (8-55); AST (SGOT) 75 U/L (5-34); Albumin 3.9 g/dL (3.5-5.0); Alkaline Phosphatase 164 U/L (40-110); Anion Gap 21 mmol/L (10-20); BUN (Urea Nitrogen) 40 mg/dL (8.4-25.7); Bilirubin, Total 12.6 mg/dL (0.2-1.2); Calc. Creatinine Clearance 130 mL/min (70-130); Calcium 10.4 mg/dL (7.8-10.44); Carbon Dioxide 22 mmol/L (22-29); Chloride 92 mmol/L (98-107); Estimated GFR 86; Globulin 3.8 g/dL (2.4-3.5); Glucose 196 mg/dL (70-105); Potassium 5.3 mmol/L (3.5-5.1); Protein, Total 7.7 g/dL (6.0-8.3); Sodium 130 mmol/L (136-145)
[2022-06-07 06:45] LABS: #Eosinphils 0.1 thou/uL (0.0-0.7); #Lymphocytes 0.8 thou/uL (1.20-3.40); #Monocytes 0.5 thou/uL (0.11-0.59); #Neutrophils 3.4 thou/uL (1.40-6.50); %Basophils 0.3 % (0.0-1.0); %Eosinophils 1.9 % (0.0-10.0); %Lymphocytes 15.9 % (21.0-51.0); %Monocytes 10.9 % (0.0-10.0); %Neutrophils 71.1 % (42.0-75.0); Hemoglobin 12.8 g/dL (14.0-18.0); MDiff Complete? YES; Macrocytosis SLIGHT = 6-15 cells (100X) (0-5/hpf); Mean Corpuscular HGB CONC 33.2 g/dL (32.0-36.0); Mean Corpuscular Hemoglobin 36.5 pg (27.0-31.0); Mean Platelet Volume 11.3 fL (7.4-10.4); Platelet Count 37 thou/uL (130-400); Platelet Morphology Comment Appears Adequate; RBC Distribution Width 15.7 % (11.5-14.5); Red Blood Cell (RBC) Count 3.51 mill/uL (4.70-6.10); White Blood Cell (WBC) Count 4.7 thou/uL (4.8-10.8)
[2022-06-07] MEDS: Ursodiol 300 MG CAP PO SCH ×3 (08:20→21:45)
[2022-06-07] MEDS: Rifaximin 550 MG TAB PO SCH ×3 (08:20→21:45)
[2022-06-07] MEDS ORDERED: Furosemide 20 MG/2 ML VIAL SLOW IVP SCH (09:00)
[2022-06-07] MEDS ORDERED: Torsemide 20 MG TAB PO SCH (09:00)
[2022-06-07] MEDS: Sodium Chloride 0.9% 1,000 ML IV SCH (12:14)
[2022-06-07] MEDS: HumaLOG 300 UNITS/3 ML VIAL SC PRN (16:47)
[2022-06-07] MEDS: Pantoprazole 40 MG VIAL IVP SCH (21:45)
[2022-06-07] MEDS: Carvedilol 3.125 MG TAB PO SCH (21:45)
[2022-06-08] MEDS: Sodium Chloride 0.9% 1,000 ML IV SCH ×3 (02:16→16:43)
[2022-06-08 04:32] LABS: #Eosinphils 0.1 thou/uL (0.0-0.7); #Lymphocytes 0.7 thou/uL (1.20-3.40); #Monocytes 0.5 thou/uL (0.11-0.59); #Neutrophils 3.6 thou/uL (1.40-6.50); %Basophils 0.8 % (0.0-1.0); %Eosinophils 2.1 % (0.0-10.0); %Lymphocytes 13.6 % (21.0-51.0); %Monocytes 10.3 % (0.0-10.0); %Neutrophils 73.2 % (42.0-75.0); Hemoglobin 13.5 g/dL (14.0-18.0); Mean Corpuscular HGB CONC 32.8 g/dL (32.0-36.0); Mean Corpuscular Hemoglobin 36.1 pg (27.0-31.0); Mean Platelet Volume 12.5 fL (7.4-10.4); Platelet Count 32 thou/uL (130-400); RBC Distribution Width 15.8 % (11.5-14.5); Red Blood Cell (RBC) Count 3.74 mill/uL (4.70-6.10); White Blood Cell (WBC) Count 4.9 thou/uL (4.8-10.8)
[2022-06-08 04:51] LABS: Phosphorus 3.6 mg/dL (2.3-4.7)
[2022-06-08 04:54] LABS: ALT (SGPT) 45 U/L (8-55); AST (SGOT) 70 U/L (5-34); Albumin 3.9 g/dL (3.5-5.0); Alkaline Phosphatase 157 U/L (40-110); Anion Gap 19 mmol/L (10-20); BUN (Urea Nitrogen) 31 mg/dL (8.4-25.7); Bilirubin, Total 13.8 mg/dL (0.2-1.2); Calc. Creatinine Clearance 122 mL/min (70-130); Calcium 10.2 mg/dL (7.8-10.44); Carbon Dioxide 21 mmol/L (22-29); Chloride 98 mmol/L (98-107); Estimated GFR 80; Globulin 3.8 g/dL (2.4-3.5); Glucose 199 mg/dL (70-105); Magnesium 2.2 mg/dL (1.6-2.6); Potassium 4.5 mmol/L (3.5-5.1); Protein, Total 7.7 g/dL (6.0-8.3); Sodium 133 mmol/L (136-145)
[2022-06-08 04:56] LABS: INR-International Normal Ratio 1.8; Prothrombin Time 21.3 sec (12.0-14.7)
[2022-06-08] MEDS: azaTHIOprine 50 MG TAB PO SCH (08:20)
[2022-06-08] MEDS: Ursodiol 300 MG CAP PO SCH ×2 (08:20→21:28)
[2022-06-08] MEDS: Carvedilol 3.125 MG TAB PO SCH ×2 (08:20→21:27)
[2022-06-08] MEDS: Rifaximin 550 MG TAB PO SCH ×2 (08:20→21:27)
[2022-06-08] MEDS: Ondansetron PF 4 MG/2 ML Vial IVP PRN ×2 (09:32→16:51)
[2022-06-08] MEDS: HumaLOG 300 UNITS/3 ML VIAL SC PRN ×3 (12:56→21:32)
[2022-06-08] MEDS: Pantoprazole 40 MG VIAL IVP SCH (21:27)
[2022-06-09 05:55] LABS: INR-International Normal Ratio 1.7
[2022-06-09 05:58] LABS: #Eosinphils 0.1 thou/uL (0.0-0.7); #Lymphocytes 0.5 thou/uL (1.20-3.40); #Monocytes 0.4 thou/uL (0.11-0.59); #Neutrophils 3.5 thou/uL (1.40-6.50); %Basophils 0.3 % (0.0-1.0); %Eosinophils 1.9 % (0.0-10.0); %Lymphocytes 11.6 % (21.0-51.0); %Monocytes 9.3 % (0.0-10.0); %Neutrophils 76.9 % (42.0-75.0); Hemoglobin 12.4 g/dL (14.0-18.0); Mean Corpuscular Hemoglobin 36.6 pg (27.0-31.0); Mean Platelet Volume 12.1 fL (7.4-10.4); Platelet Count 31 thou/uL (130-400); RBC Distribution Width 15.3 % (11.5-14.5); White Blood Cell (WBC) Count 4.6 thou/uL (4.8-10.8)
[2022-06-09 06:09] LABS: ALT (SGPT) 47 U/L (8-55); AST (SGOT) 65 U/L (5-34); Albumin 3.6 g/dL (3.5-5.0); Alkaline Phosphatase 152 U/L (40-110); Anion Gap 16 mmol/L (10-20); BUN (Urea Nitrogen) 27 mg/dL (8.4-25.7); Bilirubin, Total 13.5 mg/dL (0.2-1.2); Calc. Creatinine Clearance 124 mL/min (70-130); Calcium 9.7 mg/dL (7.8-10.44); Carbon Dioxide 24 mmol/L (22-29); Chloride 95 mmol/L (98-107); Estimated GFR 81; Globulin 3.6 g/dL (2.4-3.5); Glucose 247 mg/dL (70-105); Potassium 4.7 mmol/L (3.5-5.1); Protein, Total 7.2 g/dL (6.0-8.3); Sodium 130 mmol/L (136-145)
[2022-06-09] MEDS: Ondansetron PF 4 MG/2 ML Vial IVP PRN (06:21)
[2022-06-09] MEDS: HumaLOG 300 UNITS/3 ML VIAL SC PRN ×4 (06:21→21:49)
[2022-06-09] MEDS ORDERED: Promethazine HCl 25 MG in Sodium Chloride 0.9% 50 ML IVPB PRN (10:04)
[2022-06-09] MEDS: Carvedilol 3.125 MG TAB PO SCH ×2 (11:40→21:48)
[2022-06-09] MEDS: Rifaximin 550 MG TAB PO SCH ×2 (11:40→21:48)
[2022-06-09] MEDS: azaTHIOprine 50 MG TAB PO SCH (11:40)
[2022-06-09] MEDS: Sodium Chloride 0.9% 1,000 ML IV SCH (11:41)
[2022-06-09] MEDS: Ursodiol 300 MG CAP PO SCH ×2 (11:41→21:48)
[2022-06-09] MEDS ORDERED: Promethazine HCl 12.5 MG in Sodium Chloride 0.9% 50 ML IVPB PRN (11:59)
[2022-06-09] MEDS ORDERED: cefTRIAXone\\ROCEPHIN 1 GM in Sodium Chloride 0.9% 100 ML IVPB SCH (16:00)
[2022-06-10 05:07] LABS: ALT (SGPT) 49 U/L (8-55); AST (SGOT) 65 U/L (5-34); Albumin 3.5 g/dL (3.5-5.0); Alkaline Phosphatase 172 U/L (40-110); Anion Gap 17 mmol/L (10-20); BUN (Urea Nitrogen) 24 mg/dL (8.4-25.7); Bilirubin, Total 12.8 mg/dL (0.2-1.2); Calc. Creatinine Clearance 127 mL/min (70-130); Calcium 9.4 mg/dL (7.8-10.44); Carbon Dioxide 19 mmol/L (22-29); Chloride 99 mmol/L (98-107); Estimated GFR 84; Globulin 3.5 g/dL (2.4-3.5); Glucose 256 mg/dL (70-105); Magnesium 2.1 mg/dL (1.6-2.6); Phosphorus 2.6 mg/dL (2.3-4.7); Potassium 4.6 mmol/L (3.5-5.1); Sodium 130 mmol/L (136-145)
[2022-06-10 05:09] LABS: INR-International Normal Ratio 1.9
[2022-06-10 05:25] LABS: #Eosinphils 0.1 thou/uL (0.0-0.7); #Lymphocytes 0.6 thou/uL (1.20-3.40); #Monocytes 0.5 thou/uL (0.11-0.59); %Basophils 0.3 % (0.0-1.0); %Lymphocytes 14.3 % (21.0-51.0); %Monocytes 10.9 % (0.0-10.0); %Neutrophils 71.6 % (42.0-75.0); Hemoglobin 12.2 g/dL (14.0-18.0); Mean Corpuscular HGB CONC 33.1 g/dL (32.0-36.0); Mean Corpuscular Hemoglobin 36.9 pg (27.0-31.0); Mean Platelet Volume 12.4 fL (7.4-10.4); Platelet Count 33 thou/uL (130-400); RBC Distribution Width 15.3 % (11.5-14.5); Red Blood Cell (RBC) Count 3.31 mill/uL (4.70-6.10); White Blood Cell (WBC) Count 4.2 thou/uL (4.8-10.8)
[2022-06-10] MEDS: HumaLOG 300 UNITS/3 ML VIAL SC PRN ×2 (06:47→13:08)
[2022-06-10] MEDS: Rifaximin 550 MG TAB PO SCH (08:09)
[2022-06-10] MEDS: azaTHIOprine 50 MG TAB PO SCH (08:09)
[2022-06-10] MEDS: Carvedilol 3.125 MG TAB PO SCH (08:10)
[2022-06-10] MEDS: Ursodiol 300 MG CAP PO SCH (08:11)
[2022-06-10] MEDS: Sodium Chloride 0.9% 1,000 ML IV SCH (08:13)
[2022-06-10] MEDS ORDERED: HumaLOG 300 UNITS/3 ML VIAL SC PRN (14:08)
[2022-06-10] MEDS ORDERED: Insulin Glargine 30 UNITS/0.3 ML VIAL SC SCH (14:45)
[2022-06-10 15:44] VITALS: BP 130/79; TEMP 97.4
== END 2022-06-10 15:52 | disposition home or self-care (01) | DRG 442 ==
LOC: ERS 20:59 → T4-A 06-07 00:06 → OBSVTOIN 06-07 10:25
PROVIDERS: ADMIT Internal Medicine; ATTEND Internal Medicine
PROC: 0DH67UZ Insertion of Feeding Device into Stomach, Via Natural or Artificial Opening (ICD-10-PCS; principal; 2022-06-07)
DX: K72.00 Acute and subacute hepatic failure without coma (principal); E87.1 Hypo-osmolality and hyponatremia; Z20.822 Contact with and (suspected) exposure to COVID-19; K74.69 Other cirrhosis of liver; K75.4 Autoimmune hepatitis; K75.81 Nonalcoholic steatohepatitis (NASH); E87.5 Hyperkalemia; E11.9 Type 2 diabetes mellitus without complications; I50.9 Heart failure, unspecified; E11.65 Type 2 diabetes mellitus with hyperglycemia; E66.01 Morbid (severe) obesity due to excess calories; E78.5 Hyperlipidemia, unspecified; I25.10 Atherosclerotic heart disease of native coronary artery without angina pectoris; I11.0 Hypertensive heart disease with heart failure; R11.2 Nausea with vomiting, unspecified; Z95.828 Presence of other vascular implants and grafts; Z79.899 Other long term (current) drug therapy; Z79.4 Long term (current) use of insulin; Z95.1 Presence of aortocoronary bypass graft; Z82.49 Family history of ischemic heart disease and other diseases of the circulatory system; Z80.0 Family history of malignant neoplasm of digestive organs; Z80.42 Family history of malignant neoplasm of prostate; Z80.1 Family history of malignant neoplasm of trachea, bronchus and lung; Z76.82 Awaiting organ transplant status; Z68.36 Body mass index [BMI] 36.0-36.9, adult
CPT/HCPCS: 36415; 36416; 51701; 71045; 74018; 74019; 74176; 80053; 81003; 81015; 82140; 83605; 83690; 83735; 83880; 83930; 83935; 84100; 84300; 84484; 85025; 85610; 87040; 87086; 93005; C9113; G0378; J0696; J1815; J1940; J2405; J2550; J3490; J7050; J7500; U0003; U0005

== ENCOUNTER 2022-07-08 06:52 | Inpatient (IN) | payer BC ==
[2022-07-08 07:52] LABS: #Eosinphils 0.1 thou/uL (0.0-0.7); #Lymphocytes 0.6 thou/uL (1.20-3.40); #Monocytes 0.3 thou/uL (0.11-0.59); #Neutrophils 2.4 thou/uL (1.40-6.50); %Basophils 0.5 % (0.0-1.0); %Eosinophils 1.7 % (0.0-10.0); %Lymphocytes 18.5 % (21.0-51.0); %Monocytes 9.5 % (0.0-10.0); %Neutrophils 69.8 % (42.0-75.0); Hemoglobin 13.6 g/dL (14.0-18.0); MDiff Complete? YES; Macrocytosis MODERATE=16-30 cells (100X) (0-5/hpf); Mean Corpuscular HGB CONC 33.6 g/dL (32.0-36.0); Mean Corpuscular Hemoglobin 37.7 pg (27.0-31.0); Mean Platelet Volume 10.1 fL (7.4-10.4); Platelet Count 36 thou/uL (130-400); Platelet Morphology Comment Appears Decreased; RBC Distribution Width 15.3 % (11.5-14.5); Red Blood Cell (RBC) Count 3.62 mill/uL (4.70-6.10); White Blood Cell (WBC) Count 3.4 thou/uL (4.8-10.8)
[2022-07-08 07:55] LABS: Bacteria/HPF 4+ HPF (None Seen); Bilirubin Negative (Negative); Blood, Urine Negative (Negative); Clarity Clear (Clear); Glucose, Urine (Dipstick) 50 mg/dL (Negative); Ketone, Urine Negative (Negative); Leukocyte 25 Leu/uL (Negative); Nitrite Negative (Negative); Protein, Urine (Dipstick) 10 mg/dL (Neg-Trace); RBC/HPF 0-3 HPF (0-3); Specific Gravity, Urine 1.026 (1.002-1.036); Squamous Epithelial 0-3 HPF (0-3)
[2022-07-08 08:14] LABS: ALT (SGPT) 45 U/L (8-55); AST (SGOT) 59 U/L (5-34); Alkaline Phosphatase 255 U/L (40-110); Anion Gap 16 mmol/L (10-20); BUN (Urea Nitrogen) 25 mg/dL (8.4-25.7); Bilirubin, Total 5.6 mg/dL (0.2-1.2); Calc. Creatinine Clearance 0 mL/min (70-130); Calcium 9.6 mg/dL (7.8-10.44); Carbon Dioxide 20 mmol/L (22-29); Chloride 102 mmol/L (98-107); Estimated GFR 90; Globulin 3.8 g/dL (2.4-3.5); Glucose 209 mg/dL (70-105); Potassium 4.9 mmol/L (3.5-5.1); Protein, Total 6.8 g/dL (6.0-8.3); Sodium 133 mmol/L (136-145)
[2022-07-08] MEDS ORDERED: cefTRIAXone\\ROCEPHIN 1 GM VIAL ONE (08:42)
[2022-07-08 08:48] LABS: SARS-CoV-2 NAA Rapid Test Not Detected (NotDetected)
[2022-07-08 10:59] LABS: Lactic Acid 1.5 mmol/L (0.5-2.2)
[2022-07-08 14:02] VITALS: BMI 34.2
[2022-07-08] MEDS ORDERED: Prevnar 13-Val Conj/PF 0.5 ML SYRINGE IM ONE (14:15)
[2022-07-08] MEDS ORDERED: Non-Formulary Item 1 EACH (Lactulose [Lactulose] 10 GM/15 ML Solution) PO SCH (15:00)
[2022-07-08] MEDS: Rifaximin 550 MG TAB PO SCH (21:42)
[2022-07-08] MEDS: Carvedilol 3.125 MG TAB PO SCH (21:42)
[2022-07-08] MEDS: Ursodiol 300 MG CAP PO SCH (21:42)
[2022-07-08] MEDS: Zinc Oxide 20% Oint 30 GM TUBE TOP SCH (23:53)
[2022-07-09] MEDS: Zinc Oxide 20% Oint 30 GM TUBE TOP SCH ×3 (00:47→21:17)
[2022-07-09] MEDS ORDERED: Ondansetron PF 4 MG/2 ML Vial IVP PRN (03:02)
[2022-07-09] MEDS ORDERED: HumaLOG 300 UNITS/3 ML VIAL SC PRN (06:45)
[2022-07-09] MEDS ORDERED: Dextrose 5% in Water 1,000 ML IV PRN (06:45)
[2022-07-09] MEDS ORDERED: Dextrose 50% Abboject 50 ML SYRINGE IVP PRN (06:45)
[2022-07-09 08:47] LABS: #Lymphocytes 0.7 thou/uL (1.20-3.40); #Monocytes 0.4 thou/uL (0.11-0.59); #Neutrophils 2.7 thou/uL (1.40-6.50); %Basophils 1.2 % (0.0-1.0); %Eosinophils 0.9 % (0.0-10.0); %Lymphocytes 18.8 % (21.0-51.0); %Monocytes 9.8 % (0.0-10.0); %Neutrophils 69.4 % (42.0-75.0); Hemoglobin 13.1 g/dL (14.0-18.0); Mean Corpuscular HGB CONC 32.7 g/dL (32.0-36.0); Mean Corpuscular Hemoglobin 36.5 pg (27.0-31.0); Mean Platelet Volume 6.1 fL (7.4-10.4); Platelet Count 36 thou/uL (130-400); RBC Distribution Width 15.4 % (11.5-14.5); Red Blood Cell (RBC) Count 3.58 mill/uL (4.70-6.10); White Blood Cell (WBC) Count 3.9 thou/uL (4.8-10.8)
[2022-07-09] MEDS: cefTRIAXone\\ROCEPHIN 1 GM in Sodium Chloride 0.9% 100 ML IVPB SCH (09:25)
[2022-07-09] MEDS: Carvedilol 3.125 MG TAB PO SCH ×2 (09:26→21:14)
[2022-07-09] MEDS: Rifaximin 550 MG TAB PO SCH ×2 (09:26→21:14)
[2022-07-09] MEDS: azaTHIOprine 50 MG TAB PO SCH (09:27)
[2022-07-09] MEDS: Ursodiol 300 MG CAP PO SCH ×2 (11:22→21:35)
[2022-07-09 11:49] LABS: INR-International Normal Ratio 1.6; Prothrombin Time 19.3 sec (12.0-14.7)
[2022-07-09] MEDS: HumaLOG 300 UNITS/3 ML VIAL SC PRN ×2 (12:13→17:40)
[2022-07-09 14:35] LABS: Albumin 2.8 g/dL (3.5-5.0)
[2022-07-09 14:36] LABS: Calcium 8.9 mg/dL (7.8-10.44); Chloride 105 mmol/L (98-107); Potassium 4.5 mmol/L (3.5-5.1); Sodium 133 mmol/L (136-145)
[2022-07-09 14:37] LABS: Globulin 3.6 g/dL (2.4-3.5); Glucose 201 mg/dL (70-105); Protein, Total 6.4 g/dL (6.0-8.3)
[2022-07-09 14:38] LABS: Anion Gap 16 mmol/L (10-20); Carbon Dioxide 17 mmol/L (22-29)
[2022-07-09 14:39] LABS: Bilirubin, Total 6.9 mg/dL (0.2-1.2)
[2022-07-09 14:40] LABS: Alkaline Phosphatase 180 U/L (40-110); Calc. Creatinine Clearance 142 mL/min (70-130); Estimated GFR 98
[2022-07-09 14:41] LABS: BUN (Urea Nitrogen) 27 mg/dL (8.4-25.7)
[2022-07-09 14:42] LABS: AST (SGOT) 72 U/L (5-34)
[2022-07-09 14:43] LABS: ALT (SGPT) 47 U/L (8-55)
[2022-07-10] MEDS: HumaLOG 300 UNITS/3 ML VIAL SC PRN ×2 (05:03→12:49)
[2022-07-10 08:23] LABS: #Eosinphils 0.1 thou/uL (0.0-0.7); #Lymphocytes 0.6 thou/uL (1.20-3.40); #Monocytes 0.4 thou/uL (0.11-0.59); #Neutrophils 2.4 thou/uL (1.40-6.50); %Basophils 0.4 % (0.0-1.0); %Eosinophils 1.6 % (0.0-10.0); %Lymphocytes 18.6 % (21.0-51.0); %Monocytes 10.6 % (0.0-10.0); %Neutrophils 68.8 % (42.0-75.0); Hemoglobin A1c 5.7 % (4.0-6.0)
[2022-07-10 08:24] LABS: Hemoglobin 13.8 g/dL (14.0-18.0); Mean Corpuscular HGB CONC 33.5 g/dL (32.0-36.0); Mean Corpuscular Hemoglobin 37.9 pg (27.0-31.0); Mean Platelet Volume 10.7 fL (7.4-10.4); Platelet Count 33 thou/uL (130-400); RBC Distribution Width 15.1 % (11.5-14.5); Red Blood Cell (RBC) Count 3.65 mill/uL (4.70-6.10); White Blood Cell (WBC) Count 3.5 thou/uL (4.8-10.8)
[2022-07-10 08:36] LABS: ALT (SGPT) 51 U/L (8-55); AST (SGOT) 67 U/L (5-34); Albumin 3.1 g/dL (3.5-5.0); Alkaline Phosphatase 269 U/L (40-110); Anion Gap 13 mmol/L (10-20); BUN (Urea Nitrogen) 25 mg/dL (8.4-25.7); Bilirubin, Total 6.3 mg/dL (0.2-1.2); Calc. Creatinine Clearance 136 mL/min (70-130); Carbon Dioxide 19 mmol/L (22-29); Chloride 103 mmol/L (98-107); Estimated GFR 93; Globulin 3.9 g/dL (2.4-3.5); Glucose 388 mg/dL (70-105); Magnesium 2.1 mg/dL (1.6-2.6); Potassium 3.9 mmol/L (3.5-5.1); Sodium 131 mmol/L (136-145)
[2022-07-10] MEDS: Rifaximin 550 MG TAB PO SCH (08:53)
[2022-07-10] MEDS: Carvedilol 3.125 MG TAB PO SCH (08:53)
[2022-07-10] MEDS: azaTHIOprine 50 MG TAB PO SCH (08:54)
[2022-07-10] MEDS: Ursodiol 300 MG CAP PO SCH (08:54)
[2022-07-10] MEDS: Zinc Oxide 20% Oint 30 GM TUBE TOP SCH (09:00)
[2022-07-10] MEDS ORDERED: Insulin Glargine 30 UNITS/0.3 ML VIAL SC SCH ×2 (09:00→21:00)
[2022-07-10] MEDS: cefTRIAXone\\ROCEPHIN 1 GM in Sodium Chloride 0.9% 100 ML IVPB SCH (09:00)
[2022-07-10 09:16] LABS: MDiff Complete? YES; Macrocytosis MODERATE=16-30 cells (100X) (0-5/hpf); Platelet Morphology Comment Appears Decreased; Polychromasia SLIGHT = 2-3 cells (100X) (0-2/hpf)
[2022-07-10] MEDS ORDERED: Ciprofloxacin 500 MG TAB PO SCH ×2 (09:30→20:00)
[2022-07-10] MEDS ORDERED: Torsemide 20 MG TAB PO SCH (10:15)
[2022-07-10] MEDS ORDERED: Spironolactone 100 MG TAB PO SCH (10:15)
[2022-07-10] MEDS: HumaLOG 300 UNITS/3 ML VIAL SC SCH ×2 (10:59→16:21)
[2022-07-10] MEDS ORDERED: HumaLOG 300 UNITS/3 ML VIAL SC SCH (12:00)
[2022-07-10 13:45] VITALS: BP 113/68; TEMP 97.6
[2022-07-11] MEDS ORDERED: Spironolactone 100 MG TAB PO SCH (08:00)
[2022-07-11] MEDS ORDERED: Non-Formulary Item 1 EACH (Spironolactone [Spironolactone] 50 MG Tablet) PO SCH (09:00)
[2022-07-11] MEDS ORDERED: Folic Acid/Vit B Comp W-C PO SCH ×2 (09:00)
[2022-07-11] MEDS ORDERED: Zinc Sulfate 220 MG CAP PO SCH (09:00)
[2022-07-11] MEDS ORDERED: Torsemide 20 MG TAB PO SCH (09:00)
[2022-07-11] MEDS ORDERED: Non-Formulary Item 1 EACH (Omeprazole [Omeprazole] 20 MG Tab.Rap.Dr) PO SCH (09:00)
== END 2022-07-10 18:12 | disposition home or self-care (01) | DRG 442 ==
LOC: SUATTDRO 06:52 → ERS 06:52 → 2NO 09:10 → T4-B 07-09 20:17
PROVIDERS: ADMIT Family Medicine; ATTEND Family Medicine
DX: K72.90 Hepatic failure, unspecified without coma (principal); N39.0 Urinary tract infection, site not specified; K76.6 Portal hypertension; E87.1 Hypo-osmolality and hyponatremia; E87.2 Acidosis; Z20.822 Contact with and (suspected) exposure to COVID-19; I10 Essential (primary) hypertension; K74.60 Unspecified cirrhosis of liver; I25.10 Atherosclerotic heart disease of native coronary artery without angina pectoris; I50.9 Heart failure, unspecified; K75.4 Autoimmune hepatitis; R79.89 Other specified abnormal findings of blood chemistry; E11.65 Type 2 diabetes mellitus with hyperglycemia; D50.9 Iron deficiency anemia, unspecified; B95.2 Enterococcus as the cause of diseases classified elsewhere; D69.59 Other secondary thrombocytopenia; Z76.82 Awaiting organ transplant status; Z95.1 Presence of aortocoronary bypass graft; Z79.899 Other long term (current) drug therapy; Z80.0 Family history of malignant neoplasm of digestive organs; Z80.42 Family history of malignant neoplasm of prostate; Z80.1 Family history of malignant neoplasm of trachea, bronchus and lung
CPT/HCPCS: 36415; 36416; 51701; 70450; 71045; 72125; 80053; 81003; 81015; 82140; 83036; 83605; 83735; 84443; 84484; 85025; 85610; 87040; 87077; 87086; 87186; 93005; 96365; J0696; J1815; J2405; J3490; J7500; U0002